=== PATIENT | male | born 1950 | race Caucasian/White ===

== ENCOUNTER → 2018-09-30 12:41 | Outpatient (CLI) | payer MEDICARE, SELFPAY ==
[2018-09-30 13:19] LABS: Absolute Lymphocyte Count 2.22 X10^3/ul (0.83-4.51); Absolute Neutrophil Count 7.1 X10^3/uL (2.0-7.7); Basophil# 0.03 X10^3/uL; Basophil% 0.3 % (0-1); Eosinophil# 0.06 X10^3/uL; Eosinophils% 0.6 % (0-5); Hematocrit 42.3 % (40-54); Hemoglobin 13.7 g/dl (13.0-16.5); Lymphocyte # 2.22 X10^3/ul (4.0); Lymphocyte % 21.3 % (19-41); Mean Corp Hgb Conc 32.4 g/gl (32-36); Mean Corpuscular Hgb 30.6 pg (27.0-32.0); Mean Corpuscular Volume 94.6 fL (80-94); Mean Platelet Vol. 9.9 fl (6.2-12.0); Monocyte# 0.78 X10^3/uL; Monocyte% 7.5 % (0-10); Neutrophil # 7.09 X10^3/uL (2.7-7.7); Neutrophil % 68.2 % (47-70); Platelet Count 288 K/mm3 (150-450); RBC Distribution Width CV 15.1 % (11.6-14.6); RBC Distribution Width SD 52.3 fl (35.1-43.9); Red Blood Count 4.47 M/mm3 (4.6-6.2); White Blood Count 10.4 K/mm3 (4.4-11.0)
[2018-09-30 13:20] LABS: Differential Indicated SCAN CRITERIA MET; POSITIVE COUNT YES; POSITIVE DIFFERENTIAL NO; POSITIVE MORPHOLOGY YES
[2018-09-30 13:35] LABS: ALB/GLOB Ratio 0.8 RATIO (0.9-2.4); AST(SGOT) 31 U/L (15-37); Alanine Aminotransfer ALT/SGPT 64 U/L (16-61); Albumin, Serum 3.3 g/dL (3.2-5.0); Alkaline Phosphatase 76 U/L (45-117); Anion Gap 8 (5-15); BUN 23 mg/dL (7-18); Calcium,Total 8.4 mg/dL (8.5-10.1); Chloride 109 mmol/L (98-107); Creatinine, Serum 1.44 mg/dL (0.70-1.30); EST Glomerular Filtration Rate 52 mL/min (>60); Est Glom Filt Rate - Afr Amer 63 mL/min (>60); Glucose 100 mg/dL (74-106); PSA,Total - Annual Screen 3.17 ng/mL (0.00-4.00); Potassium 3.8 mmol/L (3.5-5.1); Protein, Total 7.3 g/dL (6.4-8.2); Sodium Level 141 mmol/L (136-145); Thyroid Stim Hormone (TSH) 1.04 uIU/mL (0.358-3.74)
[2018-09-30 14:03] LABS: Anisocytosis 1+; Platelet Estimate ADEQUATE (ADEQ); Polychromasia 1+; Target Cells RARE
[2018-09-30 14:26] LABS: Vitamin D,25 Hydroxy 19.4 ng/mL (29.95-100.01)
[2018-10-01 09:28] LABS: Hep C Antibodies <0.1 s/co ratio (0.0-0.9)
[2018-10-03 12:01] LABS: Pathologist Review Reviewed
== END ==
PROVIDERS: Visit Provider Family Medicine Geriatric Medicine
DX: E55.9 Vitamin D deficiency, unspecified (principal); R53.83 Other fatigue; Z12.5 Encounter for screening for malignant neoplasm of prostate; Z13.89 Encounter for screening for other disorder
CPT/HCPCS: 36415; 80053; 82306; 84153; 84443; 85025; 86803; G0103

== ENCOUNTER → 2018-10-04 10:18 | Outpatient (CLI) | payer MEDICARE, OTHER, SELFPAY ==
--- NOTE | 2018-10-04 09:50 | LES_PTH ---
PATIENT: DELBERT AL LOC: CT U#:[id number] AGE/SX: 75/M ROOM: RE10/04/[address]: Dr. Samson Loco MD : 1950 BED: DIS: SPEC #: [id number] RECD: 10/04/18 13:37 STATUS: CHANTAL MARQUITA #: [id number] HODAN: 10/04/18 09:[address]: Samson Loco Chi DEPT: SURGICAL PATHOLOGY RECD BY: Corky Bosch Tissues: Cheek, NOS Procedures: Surgery Specimen Level IV HEADER OPERATION: Shave biopsy left cheek PRE-OP DIAGNOSIS: Left cheek lesion TISSUE SUBMITTED: Left cheek MICROSCOPIC DIAGNOSIS Left cheek lesion, shave biopsy: Ulcerated basal cell carcinoma, solid pattern. The neoplasm is transected by deep shave biopsy surface. CE:amada 10/05/18 MICROSCOPIC DESCRIPTION Slides are reviewed. GROSS DESCRIPTION Received in fixative is one container labeled with the patient's name and designated left cheek. The specimen consists of a shave biopsy of flores-white skin measuring 1.4 x 1 cm and up to 0.2 cm in thickness. The specimen is inked and submitted entirely in one cassette. It will be sectioned at the time of embedding. / SJ:rg 10/04/18 TC:0 CPT: 92727
--- NOTE | 2018-10-04 10:20 | CT_ITS ---
STUDY: LOW DOSE CT LUNG CANCER SCREENING REASON FOR EXAM: Male, 68 years old. 45 pack-year history of smoking. RADIATION DOSAGE (If Supplied By Facility): CTDIvol = ( 3.02 ) mGy, DLP = ( 108.35 ) mGycm TECHNIQUE: No contrast was administered. Low dose technique was utilized (average mAS-38 and kVp 120). 1.25 mm axial source images with a slice interval of 1.25-mm were reconstructed in lung windows. 2.5 mm axial source images with a slice interval of 2.5-mm were reconstructed in lung windows. 5.0 mm axial source images with a slice interval of 5.0-mm were reconstructed in soft tissue windows. Nodule measured using lung windows on PACS and/or independent workstation with automated measurement of minimum and maximum diameter. Nodule measurement reported as average diameter rounded to the nearest whole number. Growth is defined as an increase ins size of greater than 1.5 mm. COMPARISON: None. NODULES: There is a 5.3 mm noncalcified nodule in the posterior medial segment of the right lower lobe as seen on axial image #139. Emphysema: Diffuse emphysematous findings with evidence of centrilobular emphysematous changes. Increased linear markings at the lung bases suggestive of scarring. There is a small left pleural effusion with findings suggestive of a either atelectasis and/or early infiltrate at the left lung base. Aorta: Atherosclerotic calcification of the aortic arch. Coronary arteries: Coronary artery calcifications. Mediastinal nodes: Small benign-appearing mediastinal lymph nodes. Other chest and abdominal findings: CT/Low Dose CT Lung Screening IMPRESSION: Lung-RADS category 2 - Continue annual screening with LDCT in 12 months. IMPORTANT NOTES FOR USE: ACR Lung-RADS Version 1.0 Assessment Categories Release Date: December 04, 2013 Category: Coded 0-4 bases on nodule(s) with highest degree of suspicion. Negative screen is defined as categories 1 and 2; a positive screen is defined as categories 3 and 4. Category 3 and 4A nodules that are unchanged on interval CT should be coded as category 2, and individuals returned to screening in 12 months. Category 4X: Category 3 or 4 nodules with additional imaging findings that increase the suspicion of lung cancer, such as spiculation, GGN that doubles in size in 1 year, enlarged lymph notes, etc. Category Modifiers: S (significant finding unrelated to lung cancer) and C (prior history of treated lung cancer) may be added to the 0-4 Lung-RADS Electronically Signed: Urbano Walls, at 10:56 EST , Service support ,
== END ==
PROVIDERS: Family Provider Family Medicine Geriatric Medicine; PCP Family Medicine Geriatric Medicine; Referring Provider Family Medicine Geriatric Medicine; Visit Provider Family Medicine Geriatric Medicine
DX: F17.200 Nicotine dependence, unspecified, uncomplicated (principal); Z87.891 Personal history of nicotine dependence; L98.9 Disorder of the skin and subcutaneous tissue, unspecified; Z12.2 Encounter for screening for malignant neoplasm of respiratory organs
CPT/HCPCS: 88305; G0297

== ENCOUNTER → 2018-10-05 06:58 | Outpatient (CLI) | payer MEDICARE, OTHER, SELFPAY ==
--- NOTE | 2018-10-05 08:01 | US_ITS ---
PROCEDURES: ULTRASOUND AORTA REASON FOR EXAM: Male, 68 years old. Aortic aneurysm without rupture. History of smoking. TECHNIQUE: Ultrasound evaluation of the aorta was performed with real-time and static zapata-scale imaging. COMPARISON: None. FINDINGS: There is atherosclerotic plaque formation of the abdominal aorta. Aorta measures: Proximal 1.7 cm. Middle 1.9 cm. Distal 1.6 cm. Aorta measure transversely: Proximal 2.0 cm. Middle 2.2 cm. Distal 1.8 cm. There is normal color flow with normal waveform and velocity. Right iliac artery measure transversely: 1.3 cm. Left iliac artery measure transversely: 1.4 cm. There is no demonstrated aneurysm.. US/Aorta IMPRESSION: Atherosclerotic changes of the abdominal aorta without aneurysm. Electronically Signed: Arcadio Mendoza DO at 18:46 EST Tel [phone], Service support ,
--- NOTE | 2018-10-05 13:26 | PFT ---
INTRODUCTION: The patient is a 68-year-old male that presents for pulmonary function studies secondary to a diagnosis of shortness of breath. Respiratory therapy reports good patient effort. Bronchodilators were used during testing. INTERPRETATION: Forced expiration spirometry demonstrates the presence of a mild large airways obstructive ventilatory defect. There was no significant response to aerosolized bronchodilators. Spirograms are of good quality and do not plateau indicating slow emptying of the lungs. Body plethysmography was performed and reveals lung volumes to be within normal limits. Diffusing capacity by single breath CO is also within normal limits at 83% of predicted. IMPRESSION: These pulmonary function studies demonstrate the presence of an irreversible mild large airways obstructive ventilatory defect. Lung volumes and diffusing capacity are within normal limits.
== END ==
PROVIDERS: Family Provider Family Medicine Geriatric Medicine; PCP Family Medicine Geriatric Medicine; Referring Provider Family Medicine Geriatric Medicine; Visit Provider Family Medicine Geriatric Medicine
DX: I71.4 Abdominal aortic aneurysm, without rupture (principal); R06.02 Shortness of breath
CPT/HCPCS: 76775; 94060; 94726; 94729

== ENCOUNTER → 2018-10-11 14:58 | Outpatient (CLI) | payer MEDICARE, OTHER, SELFPAY ==
--- NOTE | 2018-10-11 15:06 | ECHOD_ITS ---
Reason For Study: SOB Procedure This was a 2D Doppler, Color Flow transthoracic echocardiogram. The exam was of adequate technical quality. Exam performed in department. Left Ventricle Mildly dilated left ventricle. Moderate global left ventricular systolic dysfunction. The estimated ejection fraction is 30 %. Unable to assess diastolic dysfunction. Right Ventricle Normal RV size. Normal systolic function. Atria The left atrium is moderately enlarged. Normal right atrium. No doppler evidence for ASD. Mitral Valve There is mild mitral annular calcification. Mild diffuse mitral valve thickening. Mild (1+) mitral valve insufficiency. Tricuspid Valve Normal tricuspid valve. Mild tricuspid valve insufficiency. Aortic Valve Trisinus/trileaflet aortic valve. Mild diffuse aortic valve thickening. Mild focal aortic valve calcification. Aortic sclerosis, no stenosis. Pulmonic Valve The pulmonic valve is not well visualized. Trivial pulmonic valve insufficiency. Great Vessels Normal sized aortic root. Pericardium/Pleural No pericardial effusion. MMode/2D Measurements & Calculations LVIDd: 5.7 cm IVSd: 1.2 cm Ao root diam: 3.3 cm LVIDs: 5.3 cm LVPWd: 1.1 cm RVDd: 3.4 cm FS: 8.2 % LAV(MOD-bp): 58.5 ml EDV(MOD-sp4): 134.8 ml EDV(MOD-sp2): 127.2 ml LAV(MOD-bp) Indexed: 30.5 ml/m2 ESV(MOD-sp4): 93.9 ml EF(MOD-sp2): 26.0 % LAV(MOD-sp2): 55.6 ml EF(MOD-sp4): 30.4 % LAV(MOD-sp4): 56.6 ml SV(MOD-sp4): 41.0 ml SV(MOD-sp2): 33.1 ml LA A4 area: 20.4 cm2 LA dimension(2D): 4.4 cm RA A4 area: 15.0 cm2 Time Measurements MV dec time: 0.17 sec Doppler Measurements & Calculations MV E max tracy: 110.9 cm/sec Ao V2 max: 159.5 cm/sec LV V1 max: 90.5 cm/sec Ao max P.7 mmHg LV V1 max P.8 mmHg Interpretation Summary Mildly dilated left ventricle. Moderate global left ventricular systolic dysfunction. The estimated ejection fraction is 30 %. The left atrium is moderately enlarged. There is mild mitral annular calcification. Mild diffuse mitral valve thickening. Mild (1+) mitral valve insufficiency. Mild tricuspid valve insufficiency. Aortic sclerosis, no stenosis. Trivial pulmonic valve insufficiency. Unable to assess diastolic dysfunction. Ordering Physician: Samson Loco Referring Physician: Samson Loco Chi Performed By: Isa Mejia, TRAVIS, RVT
== END ==
PROVIDERS: Family Provider Family Medicine Geriatric Medicine; PCP Family Medicine Geriatric Medicine; Referring Provider Family Medicine Geriatric Medicine; Visit Provider Family Medicine Geriatric Medicine
DX: R06.02 Shortness of breath (principal)
CPT/HCPCS: 93306

== ENCOUNTER → 2018-11-02 06:54 | Outpatient (CLI) | payer MEDICARE, OTHER, SELFPAY ==
[2018-10-19 13:13] VITALS: BMI 23.8
--- NOTE | 2018-11-02 09:36 | STRESSREP ---
Stress Test Report Pharmacologic myocardial perfusion stress test. 68-year-old man with a history of recently diagnosed atrial fibrillation and hypertension. Medications: Apixaban, metoprolol, hydrochlorothiazide, lisinopril, pravastatin. Stress protocol: Resting EKG demonstrates atrial fibrillation with a rate of 93 bpm normal intervals are noted resting blood pressure 154/80 mmHg. 0.4 mg of regadenoson was infused per usual protocol followed by rapid intravenous saline flush injection continuous EKG monitoring was performed. The patient maintained atrial fibrillation throughout the recording occasional premature ventricular complexes were noted. The resting heart rate was 99 bpm with a maximum heart rate of 136 bpm which was 88% of maximum predicted heart rate the maximum workload was [address]-T wave changes were noted the final blood pressure 128/74 mmHg. Myocardial perfusion protocol. 11.8 mCi of technetium 99m sestamibi was injected at rest. 0.4 mg of regadenoson was infused per usual protocol peak infusion 33.4 mCi of technetium 99m sestamibi was injected stress images were obtained stress and rest images were reconstructed and compared in the short axis vertical long horizontal long axis. Gated images were also obtained per Perfusion SPECT analysis: Review of the stress images demonstrate an upper normal cardiac silhouette size. There is a medium-sized defect noted involving the inferior wall and inferoseptal region. There is some GI attenuation artifact noted. The apex also appears to have moderately reduced perfusion. The resting images demonstrate improvement in the apex as well as in the inferior septal wall. The above is suggestive of ischemia in these distributions. A previous basal inferior infarct is likely. Gated SPECT analysis: The gated ejection fraction demonstrates severe cardiomyopathy with an estimated ejection fraction of 26%. Conclusion: Abnormal pharmacologic myocardial perfusion stress test with evidence of inferior, inferior septal, and apical ischemia. Previous inferior infarct noted. Ischemic cardiomyopathy present.
== END ==
PROVIDERS: Family Provider Family Medicine Geriatric Medicine; PCP Family Medicine Geriatric Medicine; Referring Provider Internal Medicine Cardiovascular Disease; Visit Provider Internal Medicine Cardiovascular Disease
DX: I25.5 Ischemic cardiomyopathy (principal); I48.1 Persistent atrial fibrillation
CPT/HCPCS: 78452; 93017; A9500; A4216; J2785

== ENCOUNTER 2018-11-11 09:57 | Day surgery (SDC) | payer MEDICARE, OTHER, SELFPAY ==
[2018-10-19 13:13] VITALS: BMI 23.8
--- NOTE | 2018-11-04 12:34 | RAD_ITS ---
STUDY: X-RAY CHEST REASON FOR EXAM: Male, 68 years old. Chest pain. TECHNIQUE: PA and lateral views of the chest. COMPARISON: Prior comparison studies are not available for review at this time. FINDINGS: The lungs are clear and expanded. There is no demonstrated pleural abnormality. Normal size heart. Normal mediastinum and emmett. Normal visualized pulmonary arteries. Normal visualized aortic arch and descending thoracic aorta. There is mild levoscoliosis of the lower thoracic spine and mild degenerative changes. Normal visualized ribs, clavicles, and shoulders. There is no demonstrated abnormality of the visualized soft tissue structures of the upper abdomen. RAD/Chest PA and Lateral IMPRESSION: No active pulmonary disease. Electronically Signed: Reyes Hall MD at 13:16 EDT Tel , Service support ,
[2018-11-04 12:58] LABS: Absolute Neutrophil Count 5.5 X10^3/uL (2.0-7.7); Basophil# 0.03 X10^3/uL; Basophil% 0.4 % (0-1); Eosinophil# 0.12 X10^3/uL; Eosinophils% 1.5 % (0-5); Hematocrit 46.7 % (40-54); Hemoglobin 15.3 g/dl (13.0-16.5); Lymphocyte % 24.4 % (19-41); Mean Corp Hgb Conc 32.8 g/gl (32-36); Mean Corpuscular Hgb 30.5 pg (27.0-32.0); Mean Platelet Vol. 10.3 fl (6.2-12.0); Monocyte# 0.52 X10^3/uL; Monocyte% 6.3 % (0-10); Platelet Count 210 K/mm3 (150-450); RBC Distribution Width CV 14.9 % (11.6-14.6); RBC Distribution Width SD 50.1 fl (35.1-43.9); Red Blood Count 5.02 M/mm3 (4.6-6.2); White Blood Count 8.2 K/mm3 (4.4-11.0)
[2018-11-04 13:08] LABS: POSITIVE COUNT NO; POSITIVE DIFFERENTIAL NO; POSITIVE MORPHOLOGY NO
[2018-11-04 13:13] LABS: International Normalized Ratio 1.1; Partial Thromboplast Time 31.5 Seconds (24.1-36.2); Prothrombin Time (Protime)PT. 13.7 SECONDS (11.7-14.9)
[2018-11-04 13:23] LABS: BUN 20 mg/dL (7-18); BUN/Creat Ratio 13.5 RATIO (10-20); Calcium,Total 8.7 mg/dL (8.5-10.1); Chloride 106 mmol/L (98-107); Creatinine, Serum 1.48 mg/dL (0.70-1.30); EST Glomerular Filtration Rate 50 mL/min (>60); Est Glom Filt Rate - Afr Amer 61 mL/min (>60); Glucose 109 mg/dL (74-106); Potassium 3.8 mmol/L (3.5-5.1); Sodium Level 138 mmol/L (136-145)
[2018-11-04 13:24] LABS: Anion Gap 5 (5-15)
[2018-11-10 07:29] VITALS: BMI 23.8
[2018-11-11] VITALS (24 sets, daily range): BP systolic 107–169; BP diastolic 57–119; PULSE 56–121; RESP 16–25; TEMP 36.5–37.2; O2SAT 92–100; BMI 23.4; BMI 22.2
--- NOTE | 2018-11-11 13:35 | EKG12_ITS ---
Test Reason : AM EKG Blood Pressure : / mmHG Vent. Rate : 088 BPM Atrial Rate : 250 BPM P-R Int : 000 ms QRS Dur : 104 ms QT Int : 400 ms P-R-T Axes : 000 -02 113 degrees QTc Int : 484 ms Atrial fibrillation Abnormal ECG No previous ECGs available Confirmed by CLAIR EWING, JOSE L ([id number]), development editor KAYLI JONES ([id number]) on 11/15/2018 8:24:04 AM Referred By: Jose L Viera Confirmed By:JOSE L VIERA MD
--- NOTE | 2018-11-11 13:39 | CL.I_ITS ---
Patient Name: DELBERT AL Study Date: 11/11/2018 Performing: Kervin Leigh MD Ht: 70.07 inches 178 cm : 1950 Wt: 165.35 lbs 75 kg Age: 68 Gender: male BSA: 1.93 PROCEDURE(S) PERFORMED [id number] W OR WO PTCA, SINGLE CORONARY ARTERY CLINICAL PROFILE AND CO-MORBIDITIES Heart Failure: None Stress/Imaging Stress Test w/SPECT MPI: Yes Result: Positive Intermediate Risk Stress Test with S PECT MPI: Positive Intermediate Risk CONCLUSIONS Successful JASPREET distal RCA using Resolute Integrity 3.0x15 mm RECOMMENDATIONS ASA Indefinitley Plavix for at least 12 months Follow up with Dr. Viera INTERVENTION INFORMATION LESION SITE: RCA (Distal) Lesion Complexity: Non-High/Non-C Pre Stenosis: 80 % Pre intervention ALEX flow: 3 PROCEDURE: Drug Eluting Stent with post dilatation Post Stenosis: 0 % Post intervention ALEX flow: 3 Lesion Devices: Medtronic Resolute RX JASPREET 3.0x15 [place] [employer] NC EMERGE MR 3.00x15 BALLOON COMPLICATIONS No Complications PROCEDURE MEDICATIONS Fentanyl 50 mcg IV Versed 1 mg IV Fentanyl 25 mcg IV Versed 1 mg IV Oxygen: 2 L/min via nasal cannula Heparin diluted in 23cc Heparinized saline. Patient given 10cc IA of this solution. 11/11/2018 12:48:1 0 Heparin 6000 unit(s) IV 11/11/2018 13:07:25 Heparin 3000 unit(s) IV 11/11/2018 13:15:53 Heparin 2000 unit(s) IV 11/11/2018 13:32:58 Nitro 200 mcg IC 11/11/2018 13:09:09 Nitro 200 mcg IC 11/11/2018 13:09:09 Plavix 300 mg PO 11/11/2018 13:35:32 Verapamil 2.5mg, Ntg 100mcgs, 2000 units of Heparin diluted in 23cc Heparinized saline. Patient give n 10cc IA of this solution. 11/11/2018 12:48:10 SUMMARY OF HEMODYNAMIC DATA Time AIR REST ECG 12:34:53 AO 129/68 (91) SA 12:50:27 LV 129/4, 9 12:57:06 LV 134/3, 6 12:57:12 LV 146/4, 10 12:58:36 LV 161/3, 9 12:58:42 LVp 167/4, 10 12:58:48 AO 158/92 (113) 12:58:53 Signed By Kervin Leigh MD On 11/11/2018 13:38:41 Kervin Leigh MD
--- NOTE | 2018-11-11 13:45 | EKG12_ITS ---
Test Reason : PCI Blood Pressure : / mmHG Vent. Rate : 104 BPM Atrial Rate : 107 BPM P-R Int : 000 ms QRS Dur : 112 ms QT Int : 318 ms P-R-T Axes : 000 -52 080 degrees QTc Int : 418 ms Atrial fibrillation Left anterior fascicular block Abnormal ECG No previous ECGs available Confirmed by CLAIR EWING, JOSE L ([id number]), design editor KAYLI JONES ([id number]) on 11/15/2018 8:25:37 AM Referred By: Jose L Viera Confirmed By:JOSE L VIERA MD
[2018-11-11 13:46] LABS: ACT Activated Clotting Time 142 sec (74-137)
[2018-11-11 13:46] LABS: ACT Activated Clotting Time 224 sec (74-137)
[2018-11-11 13:46] LABS: ACT Activated Clotting Time 219 sec (74-137)
[2018-11-11] MEDS: 0.9% Normal Saline 1,000 ML 75 ML IV (14:00)
--- NOTE | 2018-11-11 14:52 | CRPHASE1 ---
Patient Communication PHII Cardiac Rehab Discussed with Patient:: Yes Guide to Cardiac Rehab Given to Patient:: Yes Cardiac Rehab Facility Choice List Given to Patient:: Yes Choice Program [facility] PHII:: Communication Given to CR Civil Cadd Technician:: Kervin Leigh Phase II Cardiac Rehab:: No - pending Risk Factors/Lifestyle Smoking Status: Current every day smoker Hx Hypertension: Yes Hx Dyslipidemia: Yes Height: 1.78 m Weight:: 70.307 kg BMI: 22.2 Family History: Family History (Last Reviewed 10/19/18 @ 13:41 by Jose L Viera MD) Mother Asthma Diabetes Kidney disease Father Cancer Sister CHF (congestive heart failure) Sister Colon cancer Phase I Education Given On:: [place], Nutrition, Antiplatelet medication, CHF, Smoking cessation, Diabetes - Type I, Diabetes - Type II Hospital Course Cardiac Cath Date:: 11/11/18 Medical/Surgical History Hypertension:: Yes Dyslipidemia:: Yes Arrhythmias:: Yes PTCA:: Yes Cardiac Rehabilitation Info Cardiac Rehabilitation Program Information: Cardiac Rehabilitation is important for patients like you who are recovering from a heart problem. Cardiac rehabilitation programs are recognized as integral to the continued care of the patient with coronary heart disease. The cardiac rehabilitation program is designed to optimize a patient's physical, psychological, and social functioning. Health career resource technician work in cardiac rehabilitation programs and assist you with getting the treatments you need to get stronger and healthier - like exercise, healthy eating habits, and medications. Cardiac rehabilitation has been show to help people with heart problems live longer and have better life enjoyment than people who do not go to cardiac rehabilitation. Please contact the Cardiac Rehabilitation Program at [facility] at in two weeks if you have not heard from them.
--- NOTE | 2018-11-11 14:54 | CL.D_ITS ---
Patient Name: DELBERT AL Study Date: 11/11/2018 Performing: Jose L Viera MD Ht: 70 inches 178 cm : 1950 Wt: 165.6 lbs 75 kg Age: 68 Gender: male BSA: 1.93 PROCEDURE(S) PERFORMED SW80-CQW/COR/LV [id number] W OR WO PTCA, SINGLE CORONARY ARTERY CLINICAL PROFILE AND INDICATIONS Indications: Suspected CAD Heart Failure: None Stress/Imaging Stress Test w/SPECT MPI: Yes Result: Positive Intermediate RiskStress Test with SP ECT MPI: Positive Intermediate Risk CAD Presentations: Unstable angina. CONCLUSIONS Mild left anterior descending artery stenosis and moderately severe distal right coronary artery sten osis with 75% smooth stenosis RECOMMENDATIONS Referred for immediate PCI DESCRIPTION OF PROCEDURE The patient arrived to the procedure lab. The risks and benefits of the procedure as well as a full d escription of our services here and current unavailability of surgical backup were fully explained to the patient and/or their significant other prior to the catheterization. The Timeout was completed, verifying the correct patient and procedure. The patient's procedural site was prepped and draped in the usual fashion. Local anesthetic was given subcutaneously to right radial region with Lidocaine 2% . Using a modified Seldinger technique, arterial access was obtained via the right radial artery, a 6 Fr sheath was inserted. Left Coronary Artery selective angiography was performed in multiple views u sing a 5 Fr. 4.0 [place] catheter. Right Coronary Artery selective angiography was then performed in mu ltiple views using a 5 Fr. 4.0 [place] catheter. Left Ventriculography was performed in JOHNSON projection using a 5 Fr. Pigtail catheter. LV to AO pullback pressures were then recorded.The arterial sheath was pulled and a TR Band was applied for hemostasis CORONARY ANGIOGRAPHY DOMINANCE: Right Dominant LEFT HEART ASSESSMENT Left Ventricular Ejection Fraction: by LV Gram 45 % Inferior Mid Hypokinesis - Moderate Depressed Left Ventricular systolic function LEFT MAIN: Non-obstructive LEFT ANTERIOR DECENDING ARTERY: PROX LAD: Mild luminal irregularities less than 30% CIRCUMFLEX ARTERY: Mild luminal irregularities RIGHT CORONARY ARTERY: DISTAL RCA: 75 % Stenosis COMPLICATIONS No Complications PROCEDURE MEDICATIONS Fentanyl 50 mcg IV Versed 1 mg IV Fentanyl 25 mcg IV Versed 1 mg IV Oxygen: 2 L/min via nasal cannula Heparin diluted in 23cc Heparinized saline. Patient given 10cc IA of this solution. 11/11/2018 12:48:1 0 Heparin 6000 unit(s) IV 11/11/2018 13:07:25 Heparin 3000 unit(s) IV 11/11/2018 13:15:53 Heparin 2000 unit(s) IV 11/11/2018 13:32:58 Nitro 200 mcg IC 11/11/2018 13:09:09 Nitro 200 mcg IC 11/11/2018 13:09:09 Plavix 300 mg PO 11/11/2018 13:35:32 Verapamil 2.5mg, Ntg 100mcgs, 2000 units of Heparin diluted in 23cc Heparinized saline. Patient give n 10cc IA of this solution. 11/11/2018 12:48:10 SUMMARY OF HEMODYNAMIC DATA Time AIR REST ECG 12:34:53 AO 129/68 (91) SA 12:50:27 LV 129/4, 9 12:57:06 LV 134/3, 6 12:57:12 LV 146/4, 10 12:58:36 LV 161/3, 9 12:58:42 LVp 167/4, 10 12:58:48 AOp 158/92 (113) 12:58:53 Signed By Jose L Viera MD On 11/11/2018 14:53:44 Jose L Viera MD
--- NOTE | 2018-11-11 14:55 | CRPHASE1_ITS ---
Addendum entered and electronically signed by Aguila Gonzalez CRT, SWITCH BOX INSTALLER, BS 11/15/18 14:53: Please note this patient was referred to CR Phase II here at [facility] prior to his discharge per Dr. Jose L Viera on 11/11/2018. Please refer to [facility] for discharge summary. Original Note: Patient Communication PHII Cardiac Rehab Discussed with Patient:: Yes Guide to Cardiac Rehab Given to Patient:: Yes Cardiac Rehab Facility Choice List Given to Patient:: Yes Choice Program [facility] CR PHII:: Communication Given to CR Refuge Manager:: Kervin Leigh Refer Phase II Cardiac Rehab:: No - pending Risk Factors/Lifestyle Smoking Status: Current every day smoker Hx Hypertension: Yes Hx Dyslipidemia: Yes Height: 1.78 m Weight:: 70.307 kg BMI: 22.2 Family History: Family History (Last Reviewed 10/19/18 @ 13:41 by Jose L Viera MD) Mother Asthma Diabetes Kidney disease Father Cancer Sister CHF (congestive heart failure) Sister Colon cancer Phase I Education Given On:: [place], Nutrition, Antiplatelet medication, CHF, Smoking cessation, Diabetes - Type I, Diabetes - Type II Hospital Course Cardiac Cath Date:: 11/11/18 Medical/Surgical History Hypertension:: Yes Dyslipidemia:: Yes Arrhythmias:: Yes PTCA:: Yes Cardiac Rehabilitation Info Cardiac Rehabilitation Program Information: Cardiac Rehabilitation is important for patients like you who are recovering from a heart problem. Cardiac rehabilitation programs are recognized as integral to the continued care of the patient with coronary heart disease. The cardiac rehabilitation program is designed to optimize a patient's physical, psychological, and social functioning. Health c are professionals work in cardiac rehabilitation programs and assist you with getting the treatments you need to get stronger and healthier - like exercise, healthy eating habits, and medications. Cardiac rehabilitation has been show to help people with heart problems live longer and have better life enjoyment than people who do not go to cardiac rehabilitation. Please contact the Cardiac Rehabilitation Program at [facility] at in two weeks if you have not heard from them.
--- NOTE | 2018-11-11 14:55 | CRPH1.INSTRU ---
General Education CAD and cardiac anatomy and function:: Patient communicates acknowledgment Explanation of diagnoses and procedures:: Patient communicates acknowledgment Sign/Symptoms of AR:: Patient communicates acknowledgment Antiplatelet therapy: Patient communicates acknowledgment Proper use of NTG-SL: Not instructed Emergency procedures and activation of EMS: Patient communicates acknowledgment Compliance of all prescribed medications: Patient communicates acknowledgment Smoking Patient Nicotine/Smoking Risk Factors Are:: Cigarettes Nicotine/Smoking Response Code:: Patient communicates acknowledgment Dyslipidemia Dyslipidemia Response Code:: Patient communicates acknowledgment Overweight/Obesity Patient Overweight/Obesity Risk Factors Are:: BMI Normal [18-25 & < 65 years old] Overweight/Obesity:: Not instructed Hypertension Hypertension:: Patient communicates acknowledgment Heart Disease Heart Disease Response Code:: Patient communicates acknowledgment Diabetes Diabetes:: Patient communicates acknowledgment Metabolic Syndrome Metabolic Syndrome Response Code:: Patient communicates acknowledgment Sedentary Sedentary Response Code:: Patient communicates acknowledgment Stress Stress Response Code:: Patient communicates acknowledgment
[2018-11-11] MEDS: Lisinopril 20 MG Tablet PO (16:07)
[2018-11-11] MEDS: hydroCHLOROthiazide 12.5mg 12.5 MG PO (16:08)
--- NOTE | 2018-11-11 16:25 | CHAPLAIN ---
Type of Pastoral Visit ___ Initial Visit _x__ Follow-up Visit ___ On-call Visit ___ General Patient Visit ___ Spiritual Assessment ___ Family Conference ___ Bereavement ___ Rapid Response ___ Code Blue ___ Other (describe below) Pastoral Care Referral From _x__ Patient _x__ Family ___ Nurse ___ Physician ___ Cna Caregiver ___ Acetylene Torch Solderer ___ Other (describe below) Sacrament/Intervention _x__ Active listening ___ Anointing ___ Buddhism ___ Bereavement ___ Communion ___ Maya exploration ___ _x__ Life review ___ Prayer ___ Reconciliation ___ Sacrament of Sick _x__ Supportive presence ___ Wedding ___ Other (describe below) Pastoral Comments
[2018-11-11] MEDS: Metoprolol Tartrate 25 MG Tablet PO (21:30)
[2018-11-11] MEDS: Pravastatin 40 MG Tablet PO (21:32)
[2018-11-12] VITALS (13 sets, daily range): BP systolic 101–165; BP diastolic 49–104; PULSE 74–110; RESP 18–26; TEMP 36.6–36.7; O2SAT 91–99
[2018-11-12 05:13] LABS: Hematocrit 42.9 % (40-54); Hemoglobin 14.3 g/dl (13.0-16.5); Mean Corp Hgb Conc 33.3 g/gl (32-36); Mean Corpuscular Hgb 29.7 pg (27.0-32.0); Mean Platelet Vol. 9.7 fl (6.2-12.0); Platelet Count 170 K/mm3 (150-450); RBC Distribution Width CV 14.9 % (11.6-14.6); RBC Distribution Width SD 48.8 fl (35.1-43.9); Red Blood Count 4.82 M/mm3 (4.6-6.2); White Blood Count 8.2 K/mm3 (4.4-11.0)
[2018-11-12 05:21] LABS: Scan Indicated on CBC? Y/N NO
[2018-11-12 05:27] LABS: Anion Gap 7 (5-15); BUN 18 mg/dL (7-18); BUN/Creat Ratio 13.8 RATIO (10-20); Calcium,Total 8.2 mg/dL (8.5-10.1); Chloride 108 mmol/L (98-107); EST Glomerular Filtration Rate 59 mL/min (>60); Est Glom Filt Rate - Afr Amer 71 mL/min (>60); Glucose 106 mg/dL (74-106); Potassium 3.9 mmol/L (3.5-5.1); Sodium Level 141 mmol/L (136-145)
[2018-11-12] MEDS: Aspirin E.C. 81 MG Tablet PO (07:44)
[2018-11-12] MEDS: Metoprolol Tartrate 25 MG Tablet PO ×2 (07:44→10:30)
[2018-11-12] MEDS: hydroCHLOROthiazide 12.5mg 12.5 MG PO (07:45)
[2018-11-12] MEDS: Clopidogrel Bisulfate 75 MG Tablet PO (07:47)
[2018-11-12] MEDS: Lisinopril 20 MG Tablet PO (07:47)
--- NOTE | 2018-11-12 09:24 | PN.CARD_ITS ---
Subjectve: Patient seen and evaluated. Appears to be doing well. No issues overnight. Objective: Vital Signs Temp Pulse Resp BP Pulse Ox 97.8 F 86 18 154/72 H 96 11/12/18 04:00 11/12/18 07:44 11/12/18 06:00 11/12/18 07:44 11/12/18 06:00 Oxygen Delivery Method Room Air Weight: 160 lb 0.889 oz Body Mass Index (BMI) 23.4 Intake and Output for Last 24 Hours 11/10/18 11/11/18 11/12/18 23:59 23:59 23:59 Intake Total 600 / 600 120 / 120 Output Total 300 / 300 200 / 200 Balance 300 / 300 -80 / -80 General: Awake, Alert, Oriented x 3 HEENT: PERRL, EOMI, Sclera Non Icteric Neck: Supple, Good ROM, No Lymph Node Enlargement Lungs: Clear to auscultation Cardiovascular: Regular Rhythm, Normal S1, Normal S2, No Murmurs, No Rubs, No Gallops Vascular: No Carotid Bruits, Normal Femoral Pulses, Normal Radial Pulses, Normal Dorsalis Pedal Pulse, Normal Posterior Tibial Pulses Abdomen: Bowel Sounds Present, Soft, Non Tender, No HSM, No Organomegaly Extremities: No Cyanosis, No Clubbing, No edema Skin: No Rashes Lymphatic: No Lymph Node Enlargement Neurological: No Focal Motor or Sensory Deficit Psych/Mental Status: Appropriate Rhythm: EKG: ECHO: Stress Test: Cardiac Cath: PCI: CT Surgery: Holter monitor: EPS: PPM: CXR: Chest CT Scan: Medical Necessity - Tobacco Use Smoking Status: Current every day smoker Assessment/Plan 1. Status post cardiac catheterization demonstrating high-grade stenosis noted of the distal right coronary artery. * The patient underwent angioplasty and stenting of the above with a 3.0 x 18 mm stent. The above was uncomplicated. The plan will be for patient to be discharged for outpatient follow-up. * 2. Hypertension * Will resume current blood pressure medications. * 3. Atrial fibrillation * Patient would continue with rate control and restart Eliquis tomorrow. Patient would need to be on triple therapy for at least 3 months. After that the Plavix can probably be discontinued. * * Thank you for allowing me to participate in the care of your patient. Please don't hesitate to call if any issues arise
--- NOTE | 2018-11-12 09:28 | PCM.DC.CCA ---
Discharge Diet: Low fat/ Low Cholesterol Discharge Activity: Return to Normal Activity May resume sexual activity in: 1 week Call your doctor if your incision/area has: Increased Pain/ Swelling, Increased Redness, Foul Smelling Discharge, Swelling at the incision site Call your doctor if you observe: Fever of 101 or Higher Additional Dressing/Incision Instructions:: Keep the dressing (bandage) on until the next morning. You may then shower, but do not take a tub bath for 5 days after your test. It is normal to have some tenderness and discomfort at the puncture site. Sometimes bruising also occurs. However, if pain, numbness, or coldness occurs below the puncture site (in your leg, toes, arms or fingers) call your doctor at once. You may have a small, marble sized knot at the puncture site. This is normal. Do not rub it. It will go away in 4-6 weeks. Bleeding can occur from the area where the puncture was done. Blood may spurt or drip from the site. If blood spurts, apply pressure right away to stop bleeding and call 911. Although rare, bleeding into the tissue (hematoma) can also occur. If this happens, a large, firm area goose egg under the skin will appear. If any of these occur, lie down as flat as you can and have someone apply firm pressure to the cath site with a gauze pad or a clean washcloth for 10-15 minutes. Call 911 or go to the Emergency Department. Allergies/Adverse Reactions: Allergies No Known Allergies Allergy (Verified 11/10/18 07:32) Medications to take at Discharge albuterol sulfate HFA 90 mcg/actuation aerosol inhaler 1 puff INHALATION Q6H PRN 10/18/18 glycopyrrolate 9 mcg-formoterol 4.8 mcg HFA aerosol inhaler 2 puff INHALATION BID 10/18/18 lisinopril 20 mg-hydrochlorothiazide 12.5 mg tablet 1 tab PO DAILY 10/18/18 pravastatin 40 mg tablet 40 mg PO QHS tab 10/18/18 varenicline 0.5 mg (11)-1 mg (42) tablets in a dose pack 1 tab PO BID tab 10/18/18 varenicline 1 mg tablet 1 mg PO BID 10/18/18 apixaban 2.5 mg tablet 2.5 mg PO BID #90 tab 10/19/18 clopidogrel 75 mg tablet 75 mg PO QDAY #90 tab 11/03/18 Aspirin [Aspirin EC] 81 mg PO DAILY 11/11/18 Metoprolol Tartrate [Lopressor (beta estephanie)] 50 mg PO BID #60 tablet 11/12/18 The following prescriptions were given: Metoprolol Tartrate [Lopressor (beta estephanie)] 50 mg PO BID #60 tablet Orders to be completed after discharge: Phase II, Outpatient Cardiac Rehab Location: None Selected Primary Care Physician: Samson Loco Chi, MD [Primary Care Provider] - Test Results: Test results from this visit will be discussed in further detail at your follow-up appointment, if applicable. When: my office will call for follow up Cardiac Rehabilitation Info Cardiac Rehabilitation Program Information: Cardiac Rehabilitation is important for patients like you who are recovering from a heart problem. Cardiac rehabilitation programs are recognized as integral to the continued care of the patient with coronary heart disease. The cardiac rehabilitation program is designed to optimize a patient's physical, psychological, and social functioning. Health wound care specialist work in cardiac rehabilitation programs and assist you with getting the treatments you need to get stronger and healthier - like exercise, healthy eating habits, and medications. Cardiac rehabilitation has been show to help people with heart problems live longer and have better life enjoyment than people who do not go to cardiac rehabilitation. Please contact the Cardiac Rehabilitation Program at [facility] at in two weeks if you have not heard from them.
--- NOTE | 2018-11-12 09:32 | DCINST_ITS ---
Discharge Diet: Low fat/ Low Cholesterol Discharge Activity: Return to Normal Activity May resume sexual activity in: 1 week Call your doctor if your incision/area has: Increased Pain/ Swelling, Increased Redness, Foul Smelling Discharge, Swelling at the incision site Call your doctor if you observe: Fever of 101 or Higher Additional Dressing/Incision Instructions:: Keep the dressing (bandage) on until the next morning. You may then shower, but do not take a tub bath for 5 days after your test. It is normal to have some tenderness and discomfort at the puncture site. Sometimes bruising also occurs. However, if pain, numbness, or coldness occurs below the puncture site (in your leg, toes, arms or fingers) call your doctor at once. You may have a small, marble sized knot at the puncture site. This is normal. Do not rub it. It will go away in 4-6 weeks. Bleeding can occur from the area where the puncture was done. Blood may spurt or drip from the site. If blood spurts, apply pressure right away to stop bleeding and call 911. Although rare, bleeding into the tissue (hematoma) can also occur. If this happens, a large, firm area goose egg under the skin will appear. If any of these occur, lie down as flat as you can and have someone apply firm pressure to the cath site with a gauze pad or a clean washcloth for 10-15 minutes. Call 911 or go to the Emergency Department. Allergies/Adverse Reactions: Allergies No Known Allergies Allergy (Verified 11/10/18 07:32) Medications to take at Discharge albuterol sulfate HFA 90 mcg/actuation aerosol inhaler 1 puff INHALATION Q6H PRN 10/18/18 glycopyrrolate 9 mcg-formoterol 4.8 mcg HFA aerosol inhaler 2 puff INHALATION BID 10/18/18 lisinopril 20 mg-hydrochlorothiazide 12.5 mg tablet 1 tab PO DAILY 10/18/18 pravastatin 40 mg tablet 40 mg PO QHS tab 10/18/18 varenicline 0.5 mg (11)-1 mg (42) tablets in a dose pack 1 tab PO BID tab 10/18/18 varenicline 1 mg tablet 1 mg PO BID 10/18/18 apixaban 2.5 mg tablet 2.5 mg PO BID #90 tab 10/19/18 clopidogrel 75 mg tablet 75 mg PO QDAY #90 tab 11/03/18 Aspirin [Aspirin EC] 81 mg PO DAILY 11/11/18 Metoprolol Tartrate [Lopressor (beta estephanie)] 50 mg PO BID #60 tablet 11/12/18 The following prescriptions were given: Metoprolol Tartrate [Lopressor (beta estephanie)] 50 mg PO BID #60 tablet Orders to be completed after discharge: Phase II, Outpatient Cardiac Rehab Location: None Selected Primary Care Physician: Samson Loco Chi, MD [Primary Care Provider] - Test Results: Test results from this visit will be discussed in further detail at your follow- up appointment, if applicable. When: my office will call for follow up Cardiac Rehabilitation Info Cardiac Rehabilitation Program Information: Cardiac Rehabilitation is important for patients like you who are recovering from a heart problem. Cardiac rehabilitation programs are recognized as integral to the continued care of the patient with coronary heart disease. The cardiac rehabilitation program is designed to optimize a patient's physical, psychological, and social functioning. Health home health care physician work in cardiac rehabilitation programs and assist you with getting the treatments you need to get stronger and healthier - like exercise, healthy eating habits, and medications. Cardiac rehabilitation has been show to help people with heart problems live longer and have better life enjoyment than people who do not go to cardiac rehabilitation. Please contact the Cardiac Rehabilitation Program at [facility] at in two weeks if you have not heard from them.
== END 2018-11-12 10:57 | disposition home or self-care (01) ==
LOC: CLSP 09:57 → ICU 13:41
PROVIDERS: Internal Medicine Cardiovascular Disease; Family Provider Family Medicine Geriatric Medicine; PCP Family Medicine Geriatric Medicine; Referring Provider Internal Medicine Cardiovascular Disease; Visit Provider Internal Medicine Cardiovascular Disease
DX: I25.110 Atherosclerotic heart disease of native coronary artery with unstable angina pectoris (principal); I48.1 Persistent atrial fibrillation; I10 Essential (primary) hypertension; I43 Cardiomyopathy in diseases classified elsewhere; E78.5 Hyperlipidemia, unspecified; J44.9 Chronic obstructive pulmonary disease, unspecified; R91.1 Solitary pulmonary nodule; Z85.828 Personal history of other malignant neoplasm of skin; Z79.51 Long term (current) use of inhaled steroids; Z79.899 Other long term (current) drug therapy; F17.200 Nicotine dependence, unspecified, uncomplicated
CPT/HCPCS: 36415; 71046; 80048; 85025; 85027; 85347; 85610; 85730; 92928; 93005; 93458; 99152; 99153; J7030; J7040; Q9967; C1725; C1769; C1874; C1887; C1894; C9600

== ENCOUNTER → 2018-11-21 | Outpatient (CLI) | payer MEDICARE, OTHER, SELFPAY ==
[2018-11-11 14:18] VITALS: BMI 23.4
[2018-11-11 14:55] VITALS: BMI 22.2
--- NOTE | 2018-11-21 13:01 | PCM.CR.ITP ---
General Information - General Information Admitting Diagnosis: Z95.5 PTCA - Education/Goals Barriers to Learning: None Cardiac Rehabilitation Goals: 1. Maintain the individual as the primary focus of care. 2. To improve the patient's quality of life. 3. Identification of cardiac risk factors and provide cardiac risk factor management. 4. Enhance the psychosocial status of the patient. 5. Reconditioning enough to allow the patient to resume customary activities. 6. Control symptoms of cardiac disease Scale for measuring improvement of personal goals: Enter appropriate number in Comments. 2 = Unchanged. 3 = Slightly Better. 4 = Moderate Improvement. 5 = Met my Goal Personal Goals: Initial Assessment: Improve energy level, Participate in home exercise program, Get back to work, or to resume activities faster, Improve knowledge of cardiac disease, Improve muscle strength and endurance, Improve diet and eating habits (eat healthier), Control risk factors (learn risk factor modification) Exercise - Initial Assessment - Visit Date of Eval: 11/21/18 - initial eval - Stages of Change Stages of Change:: Contemplate - Physician Prescribed Exercise Modalities: Treadmill, Biodyne, Rower, Airdyne, NuStep, SciFit Frequency (days/week): 3x/week for 12 weeks [36 sessions] Duration (Minutes):: 30-45 Intensity: 60-80% age predicted maximum heart rate reserve METs - Progression: 0.5-1.0 MET, RPE 11-14 WEEK: 2.5 Target Heart Rate:: 92-108 - Hypertension Do any of the following apply?: Yes Resting Blood Pressure:: 130/64 - Intervention Home Exercise/Activity Goal:: Moderate Exercise 30 min/day x 5 days/wk - Education Goals:: Warm-up, RPE MELISA Scale, S/S, Safe Exercise, Self-Monitoring - Exercise Program Goals Exercise Program Goals: Aerobic Activity >30 min, B/P <130/80 Nutrition - Initial Assessment - Program Goals Nutrition Program Goals: LDL <70. Total Cholesterol <200. HDL >45. Triglycerides <150. HgbA1C <7%. BMI <25 - Visit Date of Assessment:: 11/21/18 - Stages of Change Stages of Change:: Contemplate - Diabetes Diabetes:: No - Weight Management Height: 1.78 m Weight:: 75.296 kg Total Score:: 4 - Intervention Referral to dietitian:: No Referral to Diabetic Clinic:: No Will attend diet classes:: Yes - Education Gave educational materials for:: Signs & symptoms of hypoglycemia, Signs & symptoms of hyperglycemia, Relate diabetes to coronary artery disease, Healthy eating Tobacco - Initial Assessment - Program Goals Tobacco Program Goals: Complete smoking cessation. Attend education classes. Improve Knowledge Test score - Stage of Change Stages of Change:: Contemplate - Learning Barriers Total Score:: 16 - Family Support Do you have family support?: Yes - Tobacco Use Tobacco Use: Cigarettes Do you use smokeless tobacco?: No - Intervention Smoking Cessation Referral:: No Individual Education/Counseling:: No Education Schedule Given:: Yes - Education Gave educational material for:: Tobacco triggers, Coronary artery disease, Risk factors, Sexuality, Medical compliance, Cardiac A&P, Angina signs & symptoms Psychosocial - Initial Assess - Target Goals Target Goals: Assess presence or absence of depression. Using a valid screening tool, maximizes coping skills. Positive support system - Stages of Change Stages of Change:: Contemplate - Psychosocial Test Tool Used:: HANDS Depression Questionnaire Total Mood Screening Score:: 2 Self-Efficacy Score:: 7 - Intervention PS - Interventions: Yes Attend Stress Management Classes, Yes Uses Stress Management Skills, No Referral to Mental Health, No Referral to [facility] Case Management, No Referral to Physician - Education Gave educational materials for:: Coping techniques, Signs & symptoms of depression, Stress management, Relaxation techniques - Assistive Devices Assistive Devices:: None Fall Risk Assessed:: Yes Patient Health Questionnaire Initial Assessment 1. Little interest or pleasure in doing things: Not at all 2. Feeling down, depressed, or hopeless: Not at all 3. Trouble falling or staying asleep, or sleeping too much: Not at all 4. Feeling tired or having little energy: Several days 5. Poor appetite or overeating: Several days 6. Feeling bad about yourself -- or that you are a failure or have let yourself or your family down: Not at all 7. Trouble concentrating on things, such as reading the newspaper or watching television: Not at all 8. Moving or speaking so slowly that other people could have noticed. Or the opposite - being so fidgety or restless that you have been moving around a lot more than usual: Not at all 9. Thoughts that you would be better off , or of hurting yourself in some way: Not at all How difficult have these problems made it for you to do your work, take care of things at home, or get along with other people?: Not difficult at all Total Score: 2 LISA-Q SV Test - Statements CAD is a disease of the arteries in the heart: False Examples of risk factors for heart disease: True Angina is chest pain or discomfort: True The benefits of resistance training include: I Don't Know Eating more meat and dairy products: False Anti-platelet medications such as aspirin are important: False The only effective way to manage stress: False An exercise warm-up slowly increases heart rate: True Prepared, processed foods usually have high sodium: True Depression is common after a heart attack: True The statin medications lower cholesterol: I Don't Know To control blood pressure, lower the amount of sodium: True If someone gets chest discomfort during walking: False Transfats are partially hydrogenated vegetable oils: True Sleep apnea that is not treated increases the risk: False To control cholesterol, one should become a vegetarian: False Someone knows if he/she is exercising at the right level: False Diabetes cannot be prevented with exercise & health eating: False Stress is a large risk for heart attack: True A diet that can help lower blood pressure is rich in: True - Total Score Total Correct Responses: 16 Self-Efficacy Initial Assessment We would like to know how confident you are in doing certain activities. Please select your confidence level for:: Select your confidence level for the following using the scale 1-10 where 1 is not at all confident and 10 is totally confident. Your score is the average of all 6 responses. Fatigue: How confident are you that you can keep the fatigue caused by your disease from interfering with the things you want to do? Select Number: 8 Physical Discomfort or Pain: How confident are you that you can keep the physical discomfort or pain of your disease from interfering with the things you want to do? Select Number: 7 Emotional Distress: How confident are you that you can keep the emotional distress caused by your disease from interfering with the things you want to do? Select Number: 8 Other Symptoms or Health Problems: How confident are you that you can keep other symptoms or health problems from interfering with the things you want to do? Select Number: 6 Different Tasks and Activities: How confident are you that you can do the different tasks and activities needed to manage your health condition so as to reduce your need to see a doctor? Select Number: 8 Medication: How confident are you that you can do things other than just taking medication to reduce how much your illness affects your everyday life? Select Number: 8 Total Score:: 7 Nutrition Survey - Nutrition Survey Instructions Scoring Instructions: Scoring is as follows: Yes = 1 points. No = 0 point. Patient score that is >/=12 is considered to be at potential nutritional risk and could benefit from a referral to a registered dietitian. - Nutrition Survey Initial Have you lost >10 lbs over the past 2 months without trying?: Yes Are you following a special diet at home for diabetes, low fat, or low salt?: No Are you interested in meeting with a dietitian for help understanding your diet?: Yes Do you eat less than 3 meals a day?: No Do you eat fatty meats (magallon, sausage, ribs, etc), fried foods, desserts, large amounts of salad dressings, margarine, butter, or cheese most days?: No Do you have food allergies? [Enter types in comment field]: No Do you eat in restaurants more than 3 times a week?: Yes Do you season food with salt, seasoning salt, or garlic salt?: Yes Do you used canned, boxed, frozen meals, or soups, seasoning packets?: No Total Score:: 4
--- NOTE | 2018-11-21 13:02 | PCM.CR.HP2 ---
CR - History & Physical - General Arrival date:: 11/21/18 Arrival time:: 13:04 Date of Referral:: 11/11/18 Date of CR Evaluation:: 11/21/18 Referring Physician: Dr. Jose L Viera Primary Diagnosis: Z95.5 PTCA - History of Present Cardiac Event Onset Date: Enter Onset Date of cardiac illnesses in Comment field below PTCA or coronary stenting:: Yes Interventions with present event:: 11/11/2018 - Medications Home Medications: Ambulatory Orders Medication Instructions Recorded albuterol sulfate HFA 90 1 puff INHALATION Q6H PRN 10/18/18 mcg/actuation aerosol inhaler glycopyrrolate 9 mcg-formoterol 2 puff INHALATION BID 10/18/18 4.8 mcg HFA aerosol inhaler lisinopril 20 1 tab PO DAILY 10/18/18 mg-hydrochlorothiazide 12.5 mg tablet pravastatin 40 mg tablet 40 mg PO QHS tab 10/18/18 varenicline 0.5 mg (11)-1 mg (42) 1 tab PO BID tab 10/18/18 tablets in a dose pack varenicline 1 mg tablet 1 mg PO BID 10/18/18 apixaban 2.5 mg tablet 2.5 mg PO BID #90 tab 10/19/18 clopidogrel 75 mg tablet 75 mg PO QDAY #90 tab 11/03/18 Aspirin [Aspirin EC] 81 mg PO DAILY 11/11/18 Metoprolol Tartrate [Lopressor 50 mg PO BID #60 tablet 11/12/18 (beta estephanie)] - Allergies Allergies/Adverse Reactions: Allergies No Known Allergies Allergy (Verified 11/10/18 07:32) - Sleep Disorder Evaluation Hx of Sleep Apnea: No Do you snore loudly (louder than talking or can be heard through closed doors)?: No Do you often feel tired/ fatigued/ sleepy during daytime?: No Has anyone observed you stop breathing during sleep?: No History of Hypertension (for STOP score): Yes STOP Results: Negative Advanced Directives - Advanced Directives Power of Reference And Instruction Librarian: No Living Will: No Advance Directives Information Provided: No Advance Directives on File: No DNR Order?:: No Past Medical History - Past Medical Illness Medical History: Past Medical History (Last Updated 11/11/18 @ 20:59 by Grace García) Atherosclerotic heart disease of [place] coronary artery without angina pectoris (Chronic) I25.10 JASPREET distal RCA w/ a Resolute Integrity 3.0 x 15 mm 11/11/18 Cardiomyopathy in diseases classified elsewhere (Acute) I43 Persistent atrial fibrillation with rapid ventricular response (Acute) I48.1 Nicotine dependence (Chronic) F17.200 Hyperlipidemia (Chronic) E78.5 Essential hypertension (Chronic) I10 Basal cell carcinoma C44.91 left cheek COPD (chronic obstructive pulmonary disease) J44.9 Emphysema/COPD J43.9 Lung nodule R91.1 - Past Surgical History Surgical History: Past Surgical History (Last Updated 11/11/18 @ 20:59 by Grace García) History of coronary artery stent placement (Resolved) Onset Date: 11/11/18 Z95.5 [id number] RCA w/ a Resolute Integrity 3.0 x 15 mm 11/11/18 History of hernia surgery Z98.890, Z87.19 History of resection of small bowel Z90.49 - Family History Summary Family History: Family History (Last Reviewed 10/19/18 @ 13:41 by Jose L Viera MD) Mother , Age 73 Asthma Diabetes Kidney disease Father , age 63 Cancer stomach and lung Sister CHF (congestive heart failure) Sister Colon cancer Social History - Smoking History Smoking Status: Former smoker - stopped 23 days ago Years Smokin Packs Smoked per Day: 1 Hx Tobacco Use: Yes Hx Smoking Exposure: Yes - Alcohol Use Alcohol Usage: No - Substance Abuse Hx Substance Use: No - Occupation Occupation (List type of work in comments):: Retired - Hobbies, Recreation, Social Activities Hobbies: Other - gardening Recreational Activities: I am able to engage in most, but not all activities Social Environment - Status Marital Status: - Current Living Arrangements Living Environment:: Spouse - Children How many children do you have?: 1 Do any of your children live nearby?: Yes - Safety Do you feel safe in your surroundings?: Yes - Assistance Do you need any assistance at home?: none Review of Systems - Review of Systems Hints: Right click = Denies ([place]). Left click = Reports ([place]) Review of Present Symptoms: Reports: Fatigue, Heart Arrhythmia/Irregularities, Appetite - Normal, Sleep - Normal. Denies: Shortness of Breath at Rest, Shortness of Breath with Exertion, PVD, Operative Discomfort, Angina, Wound Healing, Dizziness/Lightheadedness, Appetite - Special Diet, Sexual Changes - Pain Is Patient Pain Free?: Yes Risk Factor Assessment - Chief Complaint Chief Complaint: PTCA - Vital Signs Pulse Ox: 98 Blood Pressure: 130/64 - Pulse Pulse Rate: 47 Pulse Rhythm: Regular - Hypertension Blood Pressure Sitting - Left Arm: 130/64 - Diabetes Nutrition Referral for Diabetes: No - Obesity Height: 1.78 m Weight:: 75.296 kg Weight in Pounds: 166.0 lbs Body Mass Index (BMI): 23.8 Nutritional Referral for Obesity: No - Physical Inactivity Physical Inactivity: Reg Exercise 30 min/day - walking - Risk Stratification Risk Guidelines: Moderate Risk: Risk Factor for Dyslipidemia, Risk Factor for Diabetes, Risk Factor for Obesity, Risk Factor for Sedentary Lifestyle, Risk Factor for Depression, Highest Risk: Risk Factor for Smoking, Risk Factor for Hypertension - For Smoking Smoking Risk Guidelines: Smoking Low Risk: None or quit greater than 6 months ago. Smoking Moderate Risk: Smoker or quit 6 months or less ago. Smoking High Risk: Smoker - For Dyslipidemia Dyslipidemia Risk Guidelines: Low Risk: Moderate Risk: High Risk: 15-25% fat 25.1-29% fat >/= 30% fat. <7% sat fat 7-9% sat fat >9% sat fat. <150 mg chol 150-299 mg chol >/= 300 mg chol. LDL <100 LDL 100-129 LDL >/= 130. Chol/HDL ratio <5.0 Chol/HDL ratio 5.0-6.0 Chol/HDL ratio >6.0. Triglycerides <100 Triglycerides 100-149 Triglycerides >/= 150 - For Diabetes Mellitus Diabetes Risk Guidelines: Diabetes Low Risk: HgA1c <6.5% and/or FBG <120. Diabetes Moderate Risk: HgA1c 6.6-7.9% and/or FBG 120-180. Diabetes High Risk: HgA1c >/= 8% and/or FBG >180 - For Obesity/Overweight Obesity/Overweight Risk Guidelines: Obesity Low Risk: BMI <25.0. Obesity Moderate Risk: BMI 25-29.9. Obesity High Risk: BMI >/= 30.0 - For Hypertension Hypertension Risk Guidelines: Hypertension Low Risk: Systolic <120 and Diastolic <80. Hypertension Moderate Risk: Systolic 120-139 and Diastolic 80-89. Hypertension High Risk: Systolic >/= 140 and Diastolic >/= 90 - For Sedentary Lifestyle Sedentary Lifestyle Risk Guidelines: Sedentary Lifestyle Low Risk: >/= 1,500 kcal/week. Sedentary Lifestyle Moderate Risk: 700-1,499 kcal/week. Sedentary Lifestyle High Risk: < 700 kcal/week - For Depression Depression Risk Guidelines: Depression Low Risk: Not clinically depressed. Depression Moderate Risk: Mildly depressed. Depression High Risk: Clinically depressed - Family History Family History: Family History (Last Reviewed 10/19/18 @ 13:41 by Jose L Viera MD) Mother Asthma Diabetes Kidney disease Father Cancer Sister CHF (congestive heart failure) Sister Colon cancer Motivation - Motivation to Participate On a scale of 1 to 10, how prepared are you to commit to attending program?: 9 What do you see as barriers to successfully being able to complete the program?: none What do you see as the benefits of succesfully completing the program? In other words, what do you hope to get out of participating in the program?: more energy Are there issues you are dealing with that will interfere with completing the program?: none Do you have a spouse or signficant other, family or friends who will help support you to complete the program?: yes
[2018-11-21 14:10] VITALS: BP 130/64; PULSE 47; O2SAT 98; BMI 23.8
[2018-11-21 14:11] VITALS: BP 130/64
== END | disposition home or self-care (01) ==
LOC: CR 08:53
PROVIDERS: Family Provider Family Medicine Geriatric Medicine; PCP Family Medicine Geriatric Medicine; Referring Provider Internal Medicine Cardiovascular Disease; Visit Provider Internal Medicine Cardiovascular Disease
DX: Z95.5 Presence of coronary angioplasty implant and graft (principal)

== ENCOUNTER 2018-12-05 14:15 | Outpatient (RCR) | payer MEDICARE, OTHER, SELFPAY ==
[2018-11-11 14:55] VITALS: BMI 22.2
[2018-11-21 13:59] VITALS: BMI 23.8
== END 2018-12-06 23:59 ==
LOC: CR 14:15
PROVIDERS: Family Provider Family Medicine Geriatric Medicine; PCP Family Medicine Geriatric Medicine; Referring Provider Internal Medicine Cardiovascular Disease; Visit Provider Internal Medicine Cardiovascular Disease
DX: I25.10 Atherosclerotic heart disease of native coronary artery without angina pectoris (principal); I43 Cardiomyopathy in diseases classified elsewhere; I48.1 Persistent atrial fibrillation; Z95.5 Presence of coronary angioplasty implant and graft
CPT/HCPCS: 93798

== ENCOUNTER → 2018-12-21 | Outpatient (CLI) | payer MEDICARE, OTHER, SELFPAY ==
[2018-11-11 14:55] VITALS: BMI 22.2
[2018-12-21 11:55] VITALS: BMI 23.6
[2018-12-21 13:34] LABS: Absolute Lymphocyte Count 1.85 X10^3/ul (0.83-4.51); Absolute Neutrophil Count 5.5 X10^3/uL (2.0-7.7); Basophil# 0.02 X10^3/uL; Basophil% 0.2 % (0-1); Eosinophil# 0.07 X10^3/uL; Eosinophils% 0.9 % (0-5); Hematocrit 44.3 % (40-54); Hemoglobin 14.7 g/dl (13.0-16.5); Lymphocyte # 1.85 X10^3/ul (4.0); Lymphocyte % 22.9 % (19-41); Mean Corp Hgb Conc 33.2 g/gl (32-36); Mean Corpuscular Hgb 29.1 pg (27.0-32.0); Mean Corpuscular Volume 87.5 fL (80-94); Mean Platelet Vol. 10.4 fl (6.2-12.0); Monocyte# 0.65 X10^3/uL; Neutrophil # 5.47 X10^3/uL (2.7-7.7); Neutrophil % 67.6 % (47-70); POSITIVE COUNT NO; POSITIVE DIFFERENTIAL NO; POSITIVE MORPHOLOGY NO; Platelet Count 205 K/mm3 (150-450); RBC Distribution Width CV 15.4 % (11.6-14.6); RBC Distribution Width SD 49.1 fl (35.1-43.9); Red Blood Count 5.06 M/mm3 (4.6-6.2); White Blood Count 8.1 K/mm3 (4.4-11.0)
[2018-12-21 13:55] LABS: Vitamin D,25 Hydroxy 28.6 ng/mL (29.95-100.01)
[2018-12-21 13:59] LABS: AST(SGOT) 18 U/L (15-37); Alanine Aminotransfer ALT/SGPT 24 U/L (16-61); Albumin, Serum 3.7 g/dL (3.2-5.0); Alkaline Phosphatase 64 U/L (45-117); Anion Gap 8 (5-15); BUN 15 mg/dL (7-18); BUN/Creat Ratio 11.3 RATIO (10-20); Calcium,Total 8.9 mg/dL (8.5-10.1); Chloride 104 mmol/L (98-107); Creatinine, Serum 1.33 mg/dL (0.70-1.30); EST Glomerular Filtration Rate 57 mL/min (>60); Est Glom Filt Rate - Afr Amer 69 mL/min (>60); Globulin 3.6 g/dL (2.2-4.2); Glucose 104 mg/dL (74-106); Potassium 4.2 mmol/L (3.5-5.1); Protein, Total 7.3 g/dL (6.4-8.2); Sodium Level 139 mmol/L (136-145); Thyroid Stim Hormone (TSH) 1.55 uIU/mL (0.358-3.74)
== END | disposition home or self-care (01) ==
LOC: POLAB3 12:00
PROVIDERS: Family Provider Family Medicine Geriatric Medicine; PCP Family Medicine Geriatric Medicine; Visit Provider Family Medicine Geriatric Medicine
DX: E55.9 Vitamin D deficiency, unspecified (principal); I10 Essential (primary) hypertension; I25.10 Atherosclerotic heart disease of native coronary artery without angina pectoris; Z95.5 Presence of coronary angioplasty implant and graft
CPT/HCPCS: 36415; 80053; 82306; 84443; 85025; 93798

== ENCOUNTER 2019-01-06 14:15 | Outpatient (RCR) | payer MEDICARE, OTHER, SELFPAY ==
[2018-11-11 14:55] VITALS: BMI 22.2
[2018-12-07 01:52] VITALS: BMI 23.8
--- NOTE | 2018-12-21 08:21 | PCM.CR.ITP ---
Exercise - 30-day Assessment - Visit Date of Eval: 12/21/18 Session #:: 11 - Stages of Change Stages of Change:: Action - Physician Prescribed Exercise Modalities: Treadmill, Rower, Airdyne, NuStep Frequency (days/week): 3 Duration (Minutes):: 30-45 Intensity: 60-80% age predicted maximum heart rate reserve METs - Progression: 0.5-1.0 MET, RPE 11-14 WEEK: 3 Target Heart Rate:: 100-130 - Hypertension Resting Blood Pressure:: 138/68 Peak Exercise Blood Pressure:: 158/82 Medication Changes:: No - Intervention Home Exercise/Activity Goal:: Moderate Exercise 30 min/day x 5 days/wk - Education Goals:: Warm-up, RPE MELISA Scale, S/S, Safe Exercise, Self-Monitoring Nutrition - 30-Day Assessment - Program Goals Nutrition Program Goals: LDL <70. Total Cholesterol <200. HDL >45. Triglycerides <150. HgbA1C <7%. BMI <25 - Visit Date of Eval: 12/21/18 - Stages of Change Stages of Change:: Action - Lipids Has the patient seen the dietitian?: No - Diabetes Diabetes:: No Insulin: No Non-Insulin Dependent?: No - Weight Management Weight:: 161 lb - Intervention Referral to dietitian:: No Referral to Diabetic Clinic:: No Will attend diet classes:: Yes - Education Attended class for:: Healthy eating Tobacco - 30-Day Assessment - Program Goals Tobacco Program Goals: Complete smoking cessation. Attend education classes. Improve Knowledge Test score - Stage of Change Stages of Change:: Action - Learning Barriers Learning Barriers: Participates in education - Family Support Do you have family support?: Yes - Tobacco Use Tobacco Use: Non-smoker Do you use smokeless tobacco?: No - Intervention Smoking Cessation Referral:: No Individual Education/Counseling:: No Education Schedule Given:: Yes - Education Attended class for:: Coronary artery disease, Risk factors, Sexuality, Medical compliance, Cardiac A&P, Angina signs & symptoms Psychosocial - Initial Assess - Target Goals Target Goals: Assess presence or absence of depression. Using a valid screening tool, maximizes coping skills. Positive support system - Psychosocial Test Tool Used:: HANDS Depression Questionnaire - Assistive Devices Fall Risk Assessed:: Yes Psychosocial - 30-Day Assess - Target Goals Target Goals: Assess presence or absence of depression. Using a valid screening tool, maximizes coping skills. Positive support system - Stages of Change Stages of Change:: Action - Psychosocial Test Tool Used:: HANDS Depression Questionnaire - Intervention PS - Interventions: Yes Attend Stress Management Classes, No Referral to Mental Health, No Referral to [facility] Case Management, No Referral to Physician, No Uses Stress Management Skills - Education Attended classes for:: Coping techniques, Signs & symptoms of depression, Stress management, Relaxation techniques - Patient/Program Goal Preventative Medication(s):: Aspirin, Clopidogrel, Beta estephanie, Statin/lipid - Assistive Devices Assistive Devices:: None Fall Risk Assessed:: Yes Patient Health Questionnaire 30-Day Re-eval Assessment 1. Little interest or pleasure in doing things: Not at all 2. Feeling down, depressed, or hopeless: Not at all 3. Trouble falling or staying asleep, or sleeping too much: Not at all 4. Feeling tired or having little energy: Several days 5. Poor appetite or overeating: Several days 6. Feeling bad about yourself -- or that you are a failure or have let yourself or your family down: Not at all 7. Trouble concentrating on things, such as reading the newspaper or watching television: Not at all 8. Moving or speaking so slowly that other people could have noticed. Or the opposite - being so fidgety or restless that you have been moving around a lot more than usual: Not at all 9. Thoughts that you would be better off , or of hurting yourself in some way: Not at all Total Score: 2 Self-Efficacy 30-Day Re-eval Assessment We would like to know how confident you are in doing certain activities. Please select your confidence level for:: Select your confidence level for the following using the scale 1-10 where 1 is not at all confident and 10 is totally confident. Your score is the average of all 6 responses. Fatigue: How confident are you that you can keep the fatigue caused by your disease from interfering with the things you want to do? Select Number: 9 Physical Discomfort or Pain: How confident are you that you can keep the physical discomfort or pain of your disease from interfering with the things you want to do? Select Number: 8 Emotional Distress: How confident are you that you can keep the emotional distress caused by your disease from interfering with the things you want to do? Select Number: 9 Other Symptoms or Health Problems: How confident are you that you can keep other symptoms or health problems from interfering with the things you want to do? Select Number: 7 Different Tasks and Activities: How confident are you that you can do the different tasks and activities needed to manage your health condition so as to reduce your need to see a doctor? Select Number: 9 Medication: How confident are you that you can do things other than just taking medication to reduce how much your illness affects your everyday life? Select Number: 9 Total Score:: 8
[2018-12-21 08:30] VITALS: BP 138/68; BP 158/82
== END 2019-01-06 23:59 ==
LOC: CR 14:15
PROVIDERS: Family Provider Family Medicine Geriatric Medicine; PCP Family Medicine Geriatric Medicine; Referring Provider Internal Medicine Cardiovascular Disease; Visit Provider Internal Medicine Cardiovascular Disease
DX: I25.10 Atherosclerotic heart disease of native coronary artery without angina pectoris (principal); I43 Cardiomyopathy in diseases classified elsewhere; I48.1 Persistent atrial fibrillation; Z95.5 Presence of coronary angioplasty implant and graft
CPT/HCPCS: 93798

== ENCOUNTER → 2019-01-09 | Outpatient (CLI) | payer MEDICARE, OTHER, SELFPAY ==
[2018-11-11 14:55] VITALS: BMI 22.2
[2018-11-30 08:57] VITALS: BMI 23.6
[2018-12-21 11:55] VITALS: BMI 23.6
--- NOTE | 2019-01-09 12:40 | ECHOD_ITS ---
Reason For Study: CHF Procedure This was a 2D Doppler, Color Flow transthoracic echocardiogram. Exam performed in department. Left Ventricle Normal LV size. Left ventricular systolic function is normal. The estimated ejection fraction is 35 %. There is moderate global hypokinesis of the left ventricle. Right Ventricle Normal RV size. Normal systolic function. Atria The left atrium is mildly enlarged. Normal right atrium. Mitral Valve Normal mitral valve. Tricuspid Valve Normal tricuspid valve. Aortic Valve Trisinus/trileaflet aortic valve. Pulmonic Valve Normal pulmonic valve. Great Vessels Normal aortic root. The pulmonary artery is normal size. Pericardium/Pleural No pericardial effusion. MMode/2D Measurements & Calculations LVIDd: 5.4 cm IVSd: 1.3 cm Ao root diam: 3.3 cm LVIDs: 4.3 cm LVPWd: 1.1 cm LA dimension: 4.0 cm FS: 21.5 % LAV(MOD-bp): 64.4 ml LVAd ap4: 37.0 cm2 SV(MOD-sp4): 55.8 ml LAV(MOD-bp) Indexed: 34.7 ml/m2 EDV(MOD-sp4): 131.6 ml LAV(MOD-sp2): 62.9 ml EDV(sp4-el): 134.3 ml LAV(MOD-sp4): 63.1 ml LVAs ap4: 26.1 cm2 ESV(MOD-sp4): 75.8 ml ESV(sp4-el): 71.5 ml EF(MOD-sp4): 42.4 % EF(sp4-el): 46.8 % SV(sp4-el): 62.9 ml LA A4 area: 21.4 cm2 RA A4 area: 15.7 cm2 Doppler Measurements & Calculations MV E max tracy: 124.6 cm/sec Ao V2 max: 135.9 cm/sec LV V1 max: 112.0 cm/sec Ao max P.4 mmHg LV V1 max P.0 mmHg PA V2 max: 104.9 cm/sec Interpretation Summary Normal LV size. Left ventricular systolic function is normal. The estimated ejection fraction is 35 %. There is moderate global hypokinesis of the left ventricle. The extent of improvement is mild Compared to previous study, the left ventricular systolic function has improved.. Ordering Physician: Jose L Viera Referring Physician: Kaiden Benitez Performed By: Jaciel Garner RCS
== END | disposition home or self-care (01) ==
LOC: CVS 12:40
PROVIDERS: Family Provider Family Medicine Geriatric Medicine; PCP Family Medicine Geriatric Medicine; Referring Provider Nurse Practitioner Family; Visit Provider Nurse Practitioner Family
DX: Z95.5 Presence of coronary angioplasty implant and graft (principal)
CPT/HCPCS: 93306; 93798

== ENCOUNTER → 2019-01-17 | Outpatient (CLI) | payer MEDICARE, OTHER, SELFPAY ==
[2018-11-11 14:55] VITALS: BMI 22.2
[2019-01-17 15:06] VITALS: BMI 23.3
[2019-01-17 17:32] LABS: Anion Gap 8 (5-15); BUN 15 mg/dL (7-18); BUN/Creat Ratio 14.2 RATIO (10-20); Calcium,Total 8.5 mg/dL (8.5-10.1); Chloride 110 mmol/L (98-107); Creatinine, Serum 1.06 mg/dL (0.70-1.30); EST Glomerular Filtration Rate 74 mL/min (>60); Est Glom Filt Rate - Afr Amer 90 mL/min (>60); Glucose 85 mg/dL (74-106); Potassium 3.8 mmol/L (3.5-5.1); Sodium Level 145 mmol/L (136-145)
== END | disposition home or self-care (01) ==
LOC: LAB 16:39
PROVIDERS: Family Provider Family Medicine Geriatric Medicine; PCP Family Medicine Geriatric Medicine; Referring Provider Internal Medicine Cardiovascular Disease; Visit Provider Internal Medicine Cardiovascular Disease
DX: I48.1 Persistent atrial fibrillation (principal); I43 Cardiomyopathy in diseases classified elsewhere
CPT/HCPCS: 36415; 80048

== ENCOUNTER 2019-01-23 10:26 | Day surgery (SDC) | payer MEDICARE, OTHER, SELFPAY ==
[2018-11-11 14:55] VITALS: BMI 22.2
[2019-01-17 15:06] VITALS: BMI 23.3
[2019-01-20 07:59] VITALS: BMI 23.3
--- NOTE | 2019-01-23 12:13 | CARDIOVERS ---
Cardioversion Cardioversion: DC cardioversion. 68-year-old man with a history of chronic persistent atrial fibrillation. The patient was brought to the cardiac catheterization lab in the postabsorptive nonsedated state. The patient was seen by Dr. Chavarria of the critical care division. Informed consent was obtained. 6 mg of intermittent intravenous etomidate was administered after anterior-posterior pads had been applied. 200 J of synchronized DC cardioversion energy were applied with prompt reversal to sinus rhythm. Patient tolerated the procedure well. Conclusion: Successful DC cardioversion to sinus rhythm. Continue current medical therapy.
--- NOTE | 2019-01-23 12:48 | PCM.OP.PRO ---
Procedure Report Date of Procedure: 01/23/19 CONSCIOUS SEDATION REPORT DATE OF SERVICE: January 23, 2019 BRIEF HISTORY OF PRESENT ILLNESS: The patient is a 68-year-old male who presented to [facility] for an elective outpatient cardioversion due to underlying atrial fibrillation. The patient has never undergone a previous cardioversion. He denies any previous anesthetic complications. He does have a known history of mild obstructive lung disease. He does have a history of tobacco dependency, which is currently in remission. He has never been diagnosed with obstructive sleep apnea. The patient's last surface echocardiogram revealed an ejection fraction of approximately 35%. PHYSICAL EXAMINATION: VITAL SIGNS: Reviewed and were acceptable. GENERAL: The patient is a male, in no apparent distress, speaking in full sentences. HEENT: Normocephalic, atraumatic. Mucous membranes are moist and pink. Good mouth opening noted. Trachea is midline. Edentulous. CHEST: S1, S2 irregularly irregular. No murmurs, rubs or gallops were noted. LUNGS: Clear to auscultation bilaterally without appreciable wheezes, rales or rhonchi. ABDOMEN: Soft, nontender, nondistended. Positive bowel sounds. EXTREMITIES: There is no clubbing, cyanosis or edema. ASA Class: II DESCRIPTION OF PROCEDURE: After confirmation of informed consent, the patient's anesthesia plan was reviewed in detail. Etomidate was chosen. Risks and benefits were reviewed and the patient agreed to proceed. At 1157, the patient was given 6 mg of etomidate. The patient achieved an appropriate level of sedation and was given a 200 joule synchronized cardioversion by Dr. Viera at the bedside. This was successful in achieving normal sinus rhythm. The patient was monitored until 1204, at which time he reached his baseline mental status and function. The patient tolerated the procedure well. COMPLICATIONS: None ESTIMATED BLOOD LOSS: None RECOMMENDATIONS: Okay to recover in usual fashion. Code Visit 9xxxx: Other Procedure See Report - [id number]
--- NOTE | 2019-01-23 12:51 | PRO.PCM_ITS ---
Procedure Report Date of Procedure: 01/23/19 CONSCIOUS SEDATION REPORT DATE OF SERVICE: January 23, 2019 BRIEF HISTORY OF PRESENT ILLNESS: The patient is a 68-year-old male who presented to [facility] for an elective outpatient cardioversion due to underlying atrial fibrillation. The patient has never undergone a previous cardioversion. He denies any previous anesthetic complications. He does have a known history of mild obstructive lung disease. He does have a history of tobacco dependency, which is currently in remission. He has never been diagnosed with obstructive sleep apnea. The patient's last surface echocardiogram revealed an ejection fraction of approximately 35%. PHYSICAL EXAMINATION: VITAL SIGNS: Reviewed and were acceptable. GENERAL: The patient is a male, in no apparent distress, speaking in full sentences. HEENT: Normocephalic, atraumatic. Mucous membranes are moist and pink. Good m outh opening noted. Trachea is midline. Edentulous. CHEST: S1, S2 irregularly irregular. No murmurs, rubs or gallops were noted. LUNGS: Clear to auscultation bilaterally without appreciable wheezes, rales or rhonchi. ABDOMEN: Soft, nontender, nondistended. Positive bowel sounds. EXTREMITIES: There is no clubbing, cyanosis or edema. ASA Class: II DESCRIPTION OF PROCEDURE: After confirmation of informed consent, the patient's anesthesia plan was reviewed in detail. Etomidate was chosen. Risks and benefits were reviewed and the patient agreed to proceed. At 1157, the patient was given 6 mg of etomidate. The patient achieved an appropriate level of sedation and was given a 200 joule synchronized cardioversion by Dr. Viera at the bedside. This was successful in achieving normal sinus rhythm. The patient was monitored until 1204, at which time he reached his baseline mental status and function. The patient tolerated the procedure well. COMPLICATIONS: None ESTIMATED BLOOD LOSS: None RECOMMENDATIONS: Okay to recover in usual fashion. Code Visit 9xxxx: Other Procedure See Report - [id number]
--- NOTE | 2019-01-23 15:50 | CHAPLAIN ---
Type of Pastoral Visit _x__ Initial Visit ___ Follow-up Visit ___ On-call Visit ___ General Patient Visit ___ Spiritual Assessment ___ Family Conference ___ Bereavement ___ Rapid Response ___ Code Blue ___ Other (describe below) Pastoral Care Referral From _x__ Patient ___ Family ___ Nurse ___ Physician ___ Senior Safety Management Consultant ___ Pantry Steward/Stewardess ___ Other (describe below) Sacrament/Intervention _x__ Active listening ___ Anointing ___ Church ___ Bereavement ___ Communion ___ Maya exploration ___ ___ Life review _x__ Prayer ___ Reconciliation ___ Sacrament of Sick ___ Supportive presence ___ Wedding ___ Other (describe below) Pastoral Comments
== END 2019-01-23 13:19 | disposition home or self-care (01) ==
LOC: CLSP 10:29
PROVIDERS: Family Provider Family Medicine Geriatric Medicine; PCP Family Medicine Geriatric Medicine; Referring Provider Internal Medicine Cardiovascular Disease; Visit Provider Internal Medicine Cardiovascular Disease
DX: I48.1 Persistent atrial fibrillation (principal); I10 Essential (primary) hypertension; I43 Cardiomyopathy in diseases classified elsewhere; Z95.5 Presence of coronary angioplasty implant and graft; E78.5 Hyperlipidemia, unspecified; I25.10 Atherosclerotic heart disease of native coronary artery without angina pectoris; J44.9 Chronic obstructive pulmonary disease, unspecified; Z85.828 Personal history of other malignant neoplasm of skin; Z87.891 Personal history of nicotine dependence; Z79.51 Long term (current) use of inhaled steroids; Z79.02 Long term (current) use of antithrombotics/antiplatelets; Z79.899 Other long term (current) drug therapy
CPT/HCPCS: 92960; 93005

== ENCOUNTER 2019-02-01 14:15 | Outpatient (RCR) | payer MEDICARE, OTHER, SELFPAY ==
[2018-11-11 14:55] VITALS: BMI 22.2
[2018-12-21 11:55] VITALS: BMI 23.6
[2019-01-07 01:09] VITALS: BP 138/68; BP 158/82
--- NOTE | 2019-01-20 08:38 | CR.ITP_ITS ---
Exercise - 60-Day Assessment - Visit Date of Eval: 01/20/19 Session #:: 24 - Stages of Change Stages of Change:: Action - Physician Prescribed Exercise Modalities: Treadmill, Airdyne, NuStep Frequency (days/week): 3 Duration (Minutes):: 30-45 Intensity: 60-80% age predicted maximum heart rate reserve METs - Progression: 0.5-1.0 MET, RPE 11-14 WEEK: 3.5 Target Heart Rate:: 100-130 w/max HR 146 - Hypertension Resting Blood Pressure:: 160/84 Peak Exercise Blood Pressure:: 170/90 Medication Changes:: Yes - Increased metoprolol tartrate to 75mg BID; DCd Cardizem - Intervention Home Exercise/Activity Goal:: Moderate Exercise 30 min/day x 5 days/wk - Education Goals:: Warm-up, RPE MELISA Scale, S/S, Safe Exercise, Self-Monitoring - Exercise Program Goals Exercise Program Goals: Aerobic Activity >30 min Nutrition - 60-Day Assessment - Program Goals Nutrition Program Goals: LDL <70. Total Cholesterol <200. HDL >45. Triglycerides <150. HgbA1C <7%. BMI <25 - Visit Date of Eval: 01/20/19 - Stages of Change Stages of Change:: Action - Lipids Has the patient seen the dietitian?: No - Diabetes Diabetes:: No - Weight Management Weight:: 164 lb 8 oz - increased 3.5# - Intervention Referral to dietitian:: No Referral to Diabetic Clinic:: No Will attend diet classes:: Yes - Education Attended class for:: Healthy eating Tobacco - 60-Day Assessment - Program Goals Tobacco Program Goals: Complete smoking cessation. Attend education classes. Improve Knowledge Test score - Stage of Change Stages of Change:: Action - Learning Barriers Learning Barriers: Participates in education - Family Support Do you have family support?: Yes - Tobacco Use Tobacco Use: Non-smoker Do you use smokeless tobacco?: No - Intervention Education Schedule Given:: Yes - Education Attended class for:: Coronary artery disease, Risk factors, Sexuality, Medical compliance, Cardiac A&P, Angina signs & symptoms Psychosocial - Initial Assess - Target Goals Target Goals: Assess presence or absence of depression. Using a valid screening tool, maximizes coping skills. Positive support system - Psychosocial Test Tool Used:: HANDS Depression Questionnaire - Assistive Devices Fall Risk Assessed:: Yes Psychosocial - 60-Day Assess - Target Goals Target Goals: Assess presence or absence of depression. Using a valid screening tool, maximizes coping skills. Positive support system - Stages of Change Stages of Change:: Action - Psychosocial Test Tool Used:: HANDS Depression Questionnaire - Intervention PS - Interventions: Yes Attend Stress Management Classes, Yes Uses Stress Management Skills, No Referral to Mental Health, No Referral to [facility] Case Management, No Referral to Physician - Education Attended classes for:: Coping techniques, Signs & symptoms of depression, Stress management, Relaxation techniques - Patient/Program Goal Preventative Medication(s):: Aspirin, Clopidogrel, Beta estephanie, Statin/lipid - Assistive Devices Assistive Devices:: None Fall Risk Assessed:: Yes Patient Health Questionnaire 60-Day Re-eval Assessment 1. Little interest or pleasure in doing things: Not at all 2. Feeling down, depressed, or hopeless: Not at all 3. Trouble falling or staying asleep, or sleeping too much: Several days 4. Feeling tired or having little energy: Not at all 5. Poor appetite or overeating: Not at all 6. Feeling bad about yourself -- or that you are a failure or have let yourself or your family down: Not at all 7. Trouble concentrating on things, such as reading the newspaper or watching television: Not at all 8. Moving or speaking so slowly that other people could have noticed. Or the opposite - being so fidgety or restless that you have been moving around a lot more than usual: Not at all 9. Thoughts that you would be better off , or of hurting yourself in some way: Not at all How difficult have these problems made it for you to do your work, take care of things at home, or get along with other people?: Not difficult at all Total Score: 1 Self-Efficacy 60-Day Re-eval Assessment We would like to know how confident you are in doing certain activities. Please select your confidence level for:: Select your confidence level for the following using the scale 1-10 where 1 is not at all confident and 10 is totally confident. Your score is the average of all 6 responses. Fatigue: How confident are you that you can keep the fatigue caused by your disease from interfering with the things you want to do? Select Number: 9 Physical Discomfort or Pain: How confident are you that you can keep the physical discomfort or pain of your disease from interfering with the things you want to do? Select Number: 8 Emotional Distress: How confident are you that you can keep the emotional distress caused by your disease from interfering with the things you want to do? Select Number: 9 Other Symptoms or Health Problems: How confident are you that you can keep other symptoms or health problems from interfering with the things you want to do? Select Number: 8 Different Tasks and Activities: How confident are you that you can do the different tasks and activities needed to manage your health condition so as to reduce your need to see a doctor? Select Number: 9 Medication: How confident are you that you can do things other than just taking medication to reduce how much your illness affects your everyday life? Select Number: 10 Total Score:: 8
[2019-01-20 08:39] VITALS: BP 160/84; BP 170/90
== END 2019-02-05 23:59 ==
LOC: CR 14:15
PROVIDERS: Family Provider Family Medicine Geriatric Medicine; PCP Family Medicine Geriatric Medicine; Referring Provider Internal Medicine Cardiovascular Disease; Visit Provider Internal Medicine Cardiovascular Disease
DX: I25.10 Atherosclerotic heart disease of native coronary artery without angina pectoris (principal); I43 Cardiomyopathy in diseases classified elsewhere; I48.1 Persistent atrial fibrillation; Z95.5 Presence of coronary angioplasty implant and graft
CPT/HCPCS: 93005; 93798

== ENCOUNTER 2019-02-20 14:15 | Outpatient (RCR) | payer MEDICARE, OTHER, SELFPAY ==
[2018-11-11 14:55] VITALS: BMI 22.2
[2019-01-20 07:59] VITALS: BMI 23.3
[2019-02-06 00:48] VITALS: BP 160/84; BP 170/90
--- NOTE | 2019-02-20 07:02 | PCM.CR.ITP ---
Exercise - 60-Day Assessment - Visit Date of Eval: 02/20/19 Session #:: 21 - Stages of Change Stages of Change:: Action - Physician Prescribed Exercise Modalities: Treadmill, Airdyne, NuStep Frequency (days/week): 3 Duration (Minutes):: 30-45 Intensity: 60-80% age predicted maximum heart rate reserve METs - Progression: 0.5-1.0 MET, RPE 11-14 WEEK: 3.5 Target Heart Rate:: 100-130 witih max HR 127 - Hypertension Resting Blood Pressure:: 152/60 - Multi-Session report sent to physician regarding cont. elevated BPs. Peak Exercise Blood Pressure:: 146/60 Medication Changes:: Yes - Intervention Home Exercise/Activity Goal:: Moderate Exercise 30 min/day x 5 days/wk - Education Goals:: Warm-up, RPE MELISA Scale, S/S, Safe Exercise, Self-Monitoring - Exercise Program Goals Exercise Program Goals: Aerobic Activity >30 min Nutrition - 60-Day Assessment - Program Goals Nutrition Program Goals: LDL <70. Total Cholesterol <200. HDL >45. Triglycerides <150. HgbA1C <7%. BMI <25 - Visit Date of Eval: 02/20/19 - Stages of Change Stages of Change:: Action - Lipids Has the patient seen the dietitian?: No - Diabetes Diabetes:: No - Weight Management Weight:: 167 lb - stable +/- 2 pounds - Intervention Referral to dietitian:: No Referral to Diabetic Clinic:: No Will attend diet classes:: Yes - Education Attended class for:: Healthy eating Tobacco - 60-Day Assessment - Program Goals Tobacco Program Goals: Complete smoking cessation. Attend education classes. Improve Knowledge Test score - Stage of Change Stages of Change:: Action - Learning Barriers Learning Barriers: Participates in education - Family Support Do you have family support?: Yes - Tobacco Use Tobacco Use: Non-smoker - Intervention Smoking Cessation Referral:: No Education Schedule Given:: Yes - Education Attended class for:: Treating Heart Disease, How The Heart Works, What it means to have Heart Disease, How Coronary Artery Disease is Diagnosed, Heart Procedures, What Heart Medications Do, Risk Factors & Modifications, Living an Active Life, Nutrition, Emotions & Heart Disease, Stress Management & Relaxation, Sleep Disorders & Heart Disease Psychosocial - Initial Assess - Target Goals Target Goals: Assess presence or absence of depression. Using a valid screening tool, maximizes coping skills. Positive support system - Psychosocial Test Tool Used:: HANDS Depression Questionnaire - Assistive Devices Fall Risk Assessed:: Yes Psychosocial - 60-Day Assess - Target Goals Target Goals: Assess presence or absence of depression. Using a valid screening tool, maximizes coping skills. Positive support system - Stages of Change Stages of Change:: Action - Psychosocial Test Tool Used:: HANDS Depression Questionnaire - Intervention PS - Interventions: Yes Attend Stress Management Classes, Yes Uses Stress Management Skills, No Referral to Mental Health, No Referral to [facility] Case Management, No Referral to Physician - Education Attended classes for:: Coping techniques, Signs & symptoms of depression, Stress management, Relaxation techniques - Patient/Program Goal Preventative Medication(s):: Aspirin, TYREL inhibitor, Clopidogrel, Beta estephanie, Statin/lipid - Assistive Devices Assistive Devices:: None Fall Risk Assessed:: Yes Patient Health Questionnaire 60-Day Re-eval Assessment 1. Little interest or pleasure in doing things: Not at all 2. Feeling down, depressed, or hopeless: Not at all 3. Trouble falling or staying asleep, or sleeping too much: Several days 4. Feeling tired or having little energy: More than half the days 5. Poor appetite or overeating: Not at all 6. Feeling bad about yourself -- or that you are a failure or have let yourself or your family down: Not at all 7. Trouble concentrating on things, such as reading the newspaper or watching television: Not at all 8. Moving or speaking so slowly that other people could have noticed. Or the opposite - being so fidgety or restless that you have been moving around a lot more than usual: Not at all 9. Thoughts that you would be better off , or of hurting yourself in some way: Not at all How difficult have these problems made it for you to do your work, take care of things at home, or get along with other people?: Not difficult at all Total Score: 3 Self-Efficacy 60-Day Re-eval Assessment We would like to know how confident you are in doing certain activities. Please select your confidence level for:: Select your confidence level for the following using the scale 1-10 where 1 is not at all confident and 10 is totally confident. Your score is the average of all 6 responses. Fatigue: How confident are you that you can keep the fatigue caused by your disease from interfering with the things you want to do? Select Number: 6 Physical Discomfort or Pain: How confident are you that you can keep the physical discomfort or pain of your disease from interfering with the things you want to do? Select Number: 5 Emotional Distress: How confident are you that you can keep the emotional distress caused by your disease from interfering with the things you want to do? Select Number: 7 Other Symptoms or Health Problems: How confident are you that you can keep other symptoms or health problems from interfering with the things you want to do? Select Number: 5 Different Tasks and Activities: How confident are you that you can do the different tasks and activities needed to manage your health condition so as to reduce your need to see a doctor? Select Number: 6 Medication: How confident are you that you can do things other than just taking medication to reduce how much your illness affects your everyday life? Select Number: 6 Total Score:: 5
[2019-02-20 07:06] VITALS: BP 146/60; BP 152/60
== END 2019-03-08 23:59 ==
LOC: CR 14:15
PROVIDERS: Family Provider Family Medicine Geriatric Medicine; PCP Family Medicine Geriatric Medicine; Referring Provider Internal Medicine Cardiovascular Disease; Visit Provider Internal Medicine Cardiovascular Disease
DX: I25.10 Atherosclerotic heart disease of native coronary artery without angina pectoris (principal); I43 Cardiomyopathy in diseases classified elsewhere; I48.1 Persistent atrial fibrillation; Z95.5 Presence of coronary angioplasty implant and graft
CPT/HCPCS: 93798

== ENCOUNTER → 2019-03-21 09:01 | Outpatient (CLI) | payer MEDICARE, OTHER, SELFPAY ==
[2018-11-11 14:55] VITALS: BMI 22.2
[2019-01-20 07:59] VITALS: BMI 23.3
[2019-03-21 13:04] LABS: Absolute Lymphocyte Count 1.97 X10^3/uL (0.83-4.51); Absolute Neutrophil Count 4.6 X10^3/uL (2.0-7.7); Basophil# 0.04 X10^3/uL; Basophil% 0.6 % (0-1); Eosinophil# 0.08 X10^3/uL; Eosinophils% 1.1 % (0-5); Hematocrit 40.7 % (40-54); Lymphocyte # 1.97 X10^3/ul (4.0); Lymphocyte % 27.2 % (19-41); Mean Corp Hgb Conc 31.9 g/dL (32-36); Mean Corpuscular Hgb 29.7 pg (27.0-32.0); Mean Corpuscular Volume 93.1 fL (80-94); Mean Platelet Vol. 10.3 fl (6.2-12.0); Monocyte# 0.53 X10^3/uL; Monocyte% 7.3 % (0-10); NRBC Flagged by Analyzer 0 % (0-5); Neutrophil # 4.57 X10^3/uL (2.7-7.7); Neutrophil % 63.1 % (47-70); Platelet Count 224 K/mm3 (150-450); RBC Distribution Width CV 13.7 % (11.6-14.6); RBC Distribution Width SD 46.4 fl (35.1-43.9); Red Blood Count 4.37 M/mm3 (4.6-6.2); White Blood Count 7.2 K/mm3 (4.4-11.0)
[2019-03-21 13:23] LABS: Vitamin D,25 Hydroxy 32.7 ng/mL (29.95-100.01)
[2019-03-21 13:25] LABS: ALB/GLOB Ratio 0.9 RATIO (0.9-2.4); AST(SGOT) 29 U/L (15-37); Alanine Aminotransfer ALT/SGPT 33 U/L (16-61); Albumin, Serum 3.5 g/dL (3.2-5.0); Alkaline Phosphatase 72 U/L (45-117); Anion Gap 6 (5-15); BUN 17 mg/dL (7-18); BUN/Creat Ratio 12.6 RATIO (10-20); Calcium,Total 8.9 mg/dL (8.5-10.1); Chloride 108 mmol/L (98-107); Creatinine, Serum 1.35 mg/dL (0.70-1.30); EST Glomerular Filtration Rate 56 mL/min (>60); Est Glom Filt Rate - Afr Amer 68 mL/min (>60); Globulin 4.1 g/dL (2.2-4.2); Glucose 93 mg/dL (74-106); Potassium 4.4 mmol/L (3.5-5.1); Protein, Total 7.6 g/dL (6.4-8.2); Sodium Level 139 mmol/L (136-145)
== END ==
PROVIDERS: Family Provider Family Medicine Geriatric Medicine; PCP Family Medicine Geriatric Medicine; Visit Provider Family Medicine Geriatric Medicine
DX: E55.9 Vitamin D deficiency, unspecified (principal); I10 Essential (primary) hypertension
CPT/HCPCS: 36415; 80053; 82306; 84443; 85025

== ENCOUNTER → 2019-06-09 | Outpatient (CLI) | payer MEDICARE, OTHER, SELFPAY ==
[2018-11-11 14:55] VITALS: BMI 22.2
[2019-05-19 13:09] VITALS: BMI 25.5
--- NOTE | 2019-06-09 08:52 | ECHOL_ITS ---
Reason For Study: CHF Procedure This was a limited 2D transthoracic echocardiogram. Kaiden Benitez notified of BP. Exam performed in department. Left Ventricle Normal LV size. Moderate concentric left ventricular hypertrophy. The estimated ejection fraction is 45 %. There is mild to moderate global hypokinesis of the left ventricle. Right Ventricle Normal RV size. Normal systolic function. Atria The left atrium is mildly enlarged. Normal right atrium. Mitral Valve Bileaflet diffuse mitral valve thickening. Mild (1+) eccentric mitral valve insufficiency. Tricuspid Valve Normal tricuspid valve. Pulmonic Valve Normal pulmonic valve. Great Vessels Normal aortic root. The pulmonary artery is normal size. Normal inferior vena cava. Pericardium/Pleural No pericardial effusion. MMode/2D Measurements & Calculations LVIDd: 5.6 cm IVSd: 1.6 cm LAV(MOD-sp4): 75.1 ml LVIDs: 4.7 cm LVPWd: 1.2 cm FS: 17.5 % LVAd ap4: 36.7 cm2 SV(MOD-sp4): 58.4 ml SV(sp4-el): 64.0 ml EDV(MOD-sp4): 128.4 ml EDV(sp4-el): 135.1 ml LVAs ap4: 25.5 cm2 ESV(MOD-sp4): 70.0 ml ESV(sp4-el): 71.2 ml EF(MOD-sp4): 45.5 % EF(sp4-el): 47.3 % LA A4 area: 23.1 cm2 RA A4 area: 17.4 cm2 Doppler Measurements & Calculations Lat Peak E' Ryan: 6.3 cm/sec Med Peak E' Ryan: 5.6 cm/sec Interpretation Summary Normal LV size. Moderate concentric left ventricular hypertrophy. The estimated ejection fraction is 45 %. Bileaflet diffuse mitral valve thickening. Mild (1+) eccentric mitral valve insufficiency. Compared to previous study, the left ventricular systolic function has improved.. Ordering Physician: Kaiden Benitez Referring Physician: Samson Loco Chi Performed By: Jaciel Garner RCS
== END | disposition home or self-care (01) ==
PROVIDERS: Family Provider Family Medicine Geriatric Medicine; PCP Family Medicine Geriatric Medicine; Referring Provider Internal Medicine Cardiovascular Disease; Visit Provider Internal Medicine Cardiovascular Disease
DX: I25.10 Atherosclerotic heart disease of native coronary artery without angina pectoris (principal); I43 Cardiomyopathy in diseases classified elsewhere; Z95.5 Presence of coronary angioplasty implant and graft; I11.0 Hypertensive heart disease with heart failure; I50.9 Heart failure, unspecified
CPT/HCPCS: 93308

== ENCOUNTER → 2019-06-23 | Outpatient (CLI) | payer MEDICARE, OTHER, SELFPAY ==
[2018-11-11 14:55] VITALS: BMI 22.2
[2019-05-19 13:09] VITALS: BMI 25.5
[2019-06-23 12:49] LABS: Absolute Lymphocyte Count 1.96 X10^3/uL (0.83-4.51); Absolute Neutrophil Count 5.2 X10^3/uL (2.0-7.7); Basophil# 0.06 X10^3/uL; Basophil% 0.7 % (0-1); Eosinophil# 0.09 X10^3/uL; Eosinophils% 1.1 % (0-5); Hematocrit 42.5 % (40-54); Hemoglobin 13.2 g/dL (13.0-16.5); Lymphocyte # 1.96 X10^3/ul (4.0); Lymphocyte % 24.4 % (19-41); Mean Corp Hgb Conc 31.1 g/dL (32-36); Mean Corpuscular Hgb 28.9 pg (27.0-32.0); Mean Platelet Vol. 10.3 fl (6.2-12.0); Monocyte# 0.65 X10^3/uL; Monocyte% 8.1 % (0-10); NRBC Flagged by Analyzer 0 % (0-5); Neutrophil # 5.23 X10^3/uL (2.7-7.7); Neutrophil % 65.1 % (47-70); Platelet Count 241 K/mm3 (150-450); RBC Distribution Width CV 14.5 % (11.6-14.6); Red Blood Count 4.57 M/mm3 (4.6-6.2)
[2019-06-23 13:03] LABS: Vitamin D,25 Hydroxy 25.5 ng/mL (29.95-100.01)
[2019-06-23 13:15] LABS: ALB/GLOB Ratio 0.8 RATIO (0.9-2.4); AST(SGOT) 34 U/L (15-37); Alanine Aminotransfer ALT/SGPT 46 U/L (16-61); Albumin, Serum 3.6 g/dL (3.2-5.0); Alkaline Phosphatase 86 U/L (45-117); Anion Gap 7 (5-15); BUN 18 mg/dL (7-18); BUN/Creat Ratio 13.4 RATIO (10-20); Calcium,Total 8.9 mg/dL (8.5-10.1); Chloride 109 mmol/L (98-107); Creatinine, Serum 1.34 mg/dL (0.70-1.30); EST Glomerular Filtration Rate 57 mL/min (>60); Est Glom Filt Rate - Afr Amer 68 mL/min (>60); Globulin 4.3 g/dL (2.2-4.2); Glucose 97 mg/dL (74-106); Potassium 5.1 mmol/L (3.5-5.1); Protein, Total 7.9 g/dL (6.4-8.2); Sodium Level 142 mmol/L (136-145); Thyroid Stim Hormone (TSH) 2.07 uIU/mL (0.358-3.74)
== END | disposition home or self-care (01) ==
LOC: POLAB3 09:50
PROVIDERS: Family Provider Family Medicine Geriatric Medicine; PCP Family Medicine Geriatric Medicine; Visit Provider Family Medicine Geriatric Medicine
DX: E55.9 Vitamin D deficiency, unspecified (principal); I10 Essential (primary) hypertension
CPT/HCPCS: 36415; 80053; 82306; 84443; 85025

== ENCOUNTER → 2019-07-07 08:18 | Outpatient (CLI) | payer MEDICARE, OTHER, SELFPAY ==
[2018-11-11 14:55] VITALS: BMI 22.2
[2019-06-23 14:58] VITALS: BMI 25.9
[2019-07-07 10:25] LABS: Anion Gap 9 (5-15); BUN 24 mg/dL (7-18); Calcium,Total 8.5 mg/dL (8.5-10.1); Chloride 108 mmol/L (98-107); Creatinine, Serum 1.41 mg/dL (0.70-1.30); EST Glomerular Filtration Rate 53 mL/min (>60); Est Glom Filt Rate - Afr Amer 64 mL/min (>60); Glucose 79 mg/dL (74-106); Sodium Level 141 mmol/L (136-145)
== END ==
PROVIDERS: Family Provider Family Medicine Geriatric Medicine; PCP Family Medicine Geriatric Medicine; Referring Provider Physician Assistant Medical; Visit Provider Physician Assistant Medical
DX: I10 Essential (primary) hypertension (principal); I43 Cardiomyopathy in diseases classified elsewhere; I48.19 Other persistent atrial fibrillation
CPT/HCPCS: 36415; 80048

== ENCOUNTER → 2019-10-06 | Outpatient (CLI) | payer MEDICARE, OTHER, SELFPAY ==
[2018-11-11 14:55] VITALS: BMI 22.2
[2019-06-23 14:58] VITALS: BMI 25.9
[2019-10-06 13:03] LABS: Absolute Lymphocyte Count 1.88 X10^3/uL (0.83-4.51); Absolute Neutrophil Count 5.8 X10^3/uL (2.0-7.7); Basophil# 0.04 X10^3/uL; Basophil% 0.5 % (0-1); Eosinophil# 0.12 X10^3/uL; Eosinophils% 1.4 % (0-5); Hematocrit 39.8 % (40-54); Hemoglobin 12.5 g/dL (13.0-16.5); Lymphocyte # 1.88 X10^3/ul (4.0); Lymphocyte % 22.6 % (19-41); Mean Corp Hgb Conc 31.4 g/dL (32-36); Mean Corpuscular Hgb 28.3 pg (27.0-32.0); Mean Corpuscular Volume 90.2 fL (80-94); Mean Platelet Vol. 9.9 fl (6.2-12.0); Monocyte# 0.43 X10^3/uL; Monocyte% 5.2 % (0-10); NRBC Flagged by Analyzer 0 % (0-5); Neutrophil # 5.79 X10^3/uL (2.7-7.7); Neutrophil % 69.5 % (47-70); Platelet Count 234 K/mm3 (150-450); RBC Distribution Width CV 14.6 % (11.6-14.6); RBC Distribution Width SD 48.8 fl (35.1-43.9); Red Blood Count 4.41 M/mm3 (4.6-6.2); White Blood Count 8.3 K/mm3 (4.4-11.0)
[2019-10-06 13:17] LABS: Vitamin D,25 Hydroxy 15.9 ng/mL
[2019-10-06 13:28] LABS: ALB/GLOB Ratio 0.8 RATIO (0.9-2.4); AST(SGOT) 21 U/L (15-37); Alanine Aminotransfer ALT/SGPT 30 U/L (16-61); Albumin, Serum 3.5 g/dL (3.2-5.0); Alkaline Phosphatase 78 U/L (45-117); Anion Gap 8 (5-15); BUN 20 mg/dL (7-18); BUN/Creat Ratio 13.5 RATIO (10-20); Calcium,Total 8.6 mg/dL (8.5-10.1); Chloride 110 mmol/L (98-107); Creatinine, Serum 1.48 mg/dL (0.70-1.30); EST Glomerular Filtration Rate 50 mL/min (>60); Est Glom Filt Rate - Afr Amer 61 mL/min (>60); Globulin 4.4 g/dL (2.2-4.2); Glucose 124 mg/dL (74-106); PSA,Total - Annual Screen 3.19 ng/mL (0.00-4.00); Potassium 4.1 mmol/L (3.5-5.1); Protein, Total 7.9 g/dL (6.4-8.2); Sodium Level 141 mmol/L (136-145)
== END | disposition home or self-care (01) ==
LOC: POLAB3 09:27
PROVIDERS: PCP Family Medicine Geriatric Medicine; Referring Provider Family Medicine Geriatric Medicine; Visit Provider Family Medicine Geriatric Medicine
DX: E55.9 Vitamin D deficiency, unspecified (principal); I10 Essential (primary) hypertension; Z12.5 Encounter for screening for malignant neoplasm of prostate
CPT/HCPCS: 36415; 80053; 82306; 84153; 84443; 85025; G0103

== ENCOUNTER → 2020-03-29 | Outpatient (CLI) | payer MEDICARE, OTHER, SELFPAY ==
[2018-11-11 14:55] VITALS: BMI 22.2
[2019-12-22 10:06] VITALS: BMI 26.8
[2020-03-29 11:03] LABS: Absolute Lymphocyte Count 2.05 X10^3/uL (0.83-4.51); Basophil# 0.04 X10^3/uL; Basophil% 0.5 % (0-1); Eosinophil# 0.16 X10^3/uL; Hematocrit 40.4 % (40-54); Hemoglobin 12.8 g/dL (13.0-16.5); Lymphocyte # 2.05 X10^3/ul (4.0); Mean Corp Hgb Conc 31.7 g/dL (32-36); Mean Corpuscular Hgb 28.9 pg (27.0-32.0); Mean Corpuscular Volume 91.2 fL (80-94); Mean Platelet Vol. 10.3 fl (6.2-12.0); Monocyte# 0.62 X10^3/uL; Monocyte% 7.9 % (0-10); NRBC Flagged by Analyzer 0 % (0-5); Neutrophil # 4.98 X10^3/uL (2.7-7.7); Neutrophil % 63.1 % (47-70); Platelet Count 214 K/mm3 (150-450); RBC Distribution Width SD 47.5 fl (35.1-43.9); Red Blood Count 4.43 M/mm3 (4.6-6.2); White Blood Count 7.9 K/mm3 (4.4-11.0)
[2020-03-29 11:20] LABS: Vitamin D,25 Hydroxy 39.9 ng/mL
[2020-03-29 11:29] LABS: AST(SGOT) 30 U/L (15-37); Alanine Aminotransfer ALT/SGPT 41 U/L (16-61); Albumin, Serum 3.9 g/dL (3.2-5.0); Alkaline Phosphatase 87 U/L (45-117); Anion Gap 6 (5-15); BUN 24 mg/dL (7-18); BUN/Creat Ratio 15.7 RATIO (10-20); Calcium,Total 8.4 mg/dL (8.5-10.1); Chloride 111 mmol/L (98-107); Creatinine, Serum 1.53 mg/dL (0.70-1.30); EST Glomerular Filtration Rate 48 mL/min (>60); Est Glom Filt Rate - Afr Amer 59 mL/min (>60); Globulin 3.8 g/dL (2.2-4.2); Glucose 106 mg/dL (74-106); Protein, Total 7.7 g/dL (6.4-8.2); Sodium Level 140 mmol/L (136-145); Thyroid Stim Hormone (TSH) 1.82 uIU/mL (0.358-3.74)
== END | disposition home or self-care (01) ==
LOC: POLAB3 10:14
PROVIDERS: PCP Family Medicine Geriatric Medicine; Visit Provider Family Medicine Geriatric Medicine
DX: E55.9 Vitamin D deficiency, unspecified (principal); I10 Essential (primary) hypertension
CPT/HCPCS: 36415; 80053; 82306; 84443; 85025

== ENCOUNTER → 2020-10-11 09:27 | Outpatient (CLI) | payer MEDICARE, SELFPAY ==
[2018-11-11 14:55] VITALS: BMI 22.2
[2020-07-23 10:29] VITALS: BMI 27.9
[2020-10-11 12:24] LABS: Absolute Lymphocyte Count 2.36 X10^3/uL (0.83-4.51); Absolute Neutrophil Count 4.8 X10^3/uL (2.0-7.7); Basophil# 0.05 X10^3/uL; Basophil% 0.6 % (0-1); Eosinophil# 0.22 X10^3/uL; Eosinophils% 2.7 % (0-5); Hematocrit 38.1 % (40-54); Hemoglobin 12.7 g/dL (13.0-16.5); Lymphocyte # 2.36 X10^3/ul (4.0); Lymphocyte % 29.1 % (19-41); Mean Corp Hgb Conc 33.3 g/dL (32-36); Mean Corpuscular Hgb 31.4 pg (27.0-32.0); Mean Corpuscular Volume 94.1 fL (80-94); Mean Platelet Vol. 10.2 fl (6.2-12.0); Monocyte# 0.62 X10^3/uL; Monocyte% 7.7 % (0-10); NRBC Flagged by Analyzer 0 % (0-5); Neutrophil # 4.79 X10^3/uL (2.7-7.7); Neutrophil % 59.2 % (47-70); Platelet Count 185 K/mm3 (150-450); RBC Distribution Width CV 15.8 % (11.6-14.6); RBC Distribution Width SD 50.6 fl (35.1-43.9); Red Blood Count 4.05 M/mm3 (4.6-6.2); White Blood Count 8.1 K/mm3 (4.4-11.0)
[2020-10-11 12:41] LABS: Vitamin D,25 Hydroxy 13.8 ng/mL
[2020-10-11 12:51] LABS: ALB/GLOB Ratio 0.9 RATIO (0.9-2.4); AST(SGOT) 24 U/L (15-37); Alanine Aminotransfer ALT/SGPT 46 U/L (16-61); Albumin, Serum 3.8 g/dL (3.2-5.0); Alkaline Phosphatase 90 U/L (45-117); Anion Gap 7 (5-15); BUN 20 mg/dL (7-18); BUN/Creat Ratio 14.1 RATIO (10-20); Calcium,Total 8.6 mg/dL (8.5-10.1); Chloride 111 mmol/L (98-107); Creatinine, Serum 1.42 mg/dL (0.70-1.30); EST Glomerular Filtration Rate 53 mL/min (>60); Est Glom Filt Rate - Afr Amer 64 mL/min (>60); Globulin 4.2 g/dL (2.2-4.2); Glucose 97 mg/dL (74-106); PSA,Total - Annual Screen 5.09 ng/mL (0.00-4.00); Potassium 4.1 mmol/L (3.5-5.1); Sodium Level 142 mmol/L (136-145); Thyroid Stim Hormone (TSH) 1.78 uIU/mL (0.358-3.74)
== END ==
PROVIDERS: PCP Family Medicine Geriatric Medicine; Visit Provider Family Medicine Geriatric Medicine
DX: E55.9 Vitamin D deficiency, unspecified (principal); I10 Essential (primary) hypertension; Z12.5 Encounter for screening for malignant neoplasm of prostate
CPT/HCPCS: 36415; 80053; 82306; 84153; 84443; 85025; G0103

== ENCOUNTER → 2020-11-25 08:34 | Outpatient (CLI) | payer MEDICARE, SELFPAY ==
[2018-11-11 14:55] VITALS: BMI 22.2
[2020-11-22 09:50] VITALS: BMI 29.0
[2020-11-25 09:58] LABS: Hematocrit 39.9 % (40-54); Hemoglobin 12.7 g/dL (13.0-16.5); Mean Corp Hgb Conc 31.8 g/dL (32-36); Mean Corpuscular Hgb 29.1 pg (27.0-32.0); Mean Corpuscular Volume 91.3 fL (80-94); Mean Platelet Vol. 10.4 fl (6.2-12.0); Platelet Count 192 K/mm3 (150-450); RBC Distribution Width CV 14.3 % (11.6-14.6); RBC Distribution Width SD 48.1 fl (35.1-43.9); Red Blood Count 4.37 M/mm3 (4.6-6.2); White Blood Count 6.1 K/mm3 (4.4-11.0)
[2020-11-25 10:16] LABS: Anion Gap 9 (5-15); BUN 17 mg/dL (7-18); BUN/Creat Ratio 11.8 RATIO (10-20); Calcium,Total 8.6 mg/dL (8.5-10.1); Chloride 112 mmol/L (98-107); Creatinine, Serum 1.44 mg/dL (0.70-1.30); EST Glomerular Filtration Rate 52 mL/min (>60); Est Glom Filt Rate - Afr Amer 63 mL/min (>60); Glucose 115 mg/dL (74-106); Potassium 3.9 mmol/L (3.5-5.1); Sodium Level 142 mmol/L (136-145)
== END ==
PROVIDERS: PCP Family Medicine Geriatric Medicine; Referring Provider Urology; Visit Provider Urology
DX: Z01.812 Encounter for preprocedural laboratory examination (principal)
CPT/HCPCS: 36415; 80048; 85027

== ENCOUNTER → 2020-12-05 12:21 | Outpatient (CLI) | payer MEDICARE, SELFPAY ==
[2018-11-11 14:55] VITALS: BMI 22.2
[2020-11-22 09:50] VITALS: BMI 29.0
--- NOTE | 2020-12-05 12:23 | ECHOD_ITS ---
Reason For Study: CHF Procedure This was a 2D Doppler, Color Flow transthoracic echocardiogram. Exam performed in department. Left Ventricle Normal LV size. Left ventricular systolic function is normal. The estimated ejection fraction is 55 %. Stage 2 diastolic dysfunction. No regional wall motion abnormalities noted. Right Ventricle Normal RV size. Normal systolic function. Atria The left atrium is mildly enlarged. Normal right atrium. Mitral Valve Normal mitral valve. Tricuspid Valve Normal tricuspid valve. Aortic Valve Normal aortic valve. Trisinus/trileaflet aortic valve. Pulmonic Valve Normal pulmonic valve. Great Vessels Normal aortic root. The pulmonary artery is normal size. Normal inferior vena cava. Pericardium/Pleural No pericardial effusion. MMode/2D Measurements & Calculations LVIDd: 5.2 cm IVSd: 1.1 cm Ao root diam: 3.1 cm LVIDs: 3.7 cm LVPWd: 1.1 cm RVDd: 3.2 cm FS: 28.3 % LAV(MOD-bp): 70.4 ml LVAd ap4: 32.7 cm2 LVAd ap2: 35.3 cm2 LAV(MOD-bp) Indexed: 33.6 ml/m2 LVLd ap4: 9.2 cm LVLd ap2: 8.7 cm LAV(MOD-sp2): 58.5 ml EDV(MOD-sp4): 98.3 ml EDV(MOD-sp2): 121.9 ml LAV(MOD-sp4): 78.0 ml EDV(sp4-el): 98.8 ml EDV(sp2-el): 120.7 ml LVAs ap4: 19.9 cm2 LVAs ap2: 22.7 cm2 LVLs ap4: 8.2 cm LVLs ap2: 8.2 cm ESV(MOD-sp4): 40.3 ml ESV(MOD-sp2): 54.0 ml ESV(sp4-el): 41.0 ml ESV(sp2-el): 53.5 ml EF(MOD-sp4): 59.0 % EF(MOD-sp2): 55.7 % EF(sp4-el): 58.5 % SV(MOD-sp4): 57.9 ml SV(MOD-sp2): 67.9 ml SV(sp4-el): 57.8 ml LA dimension(2D): 3.6 cm LA A4 area: 23.4 cm2 RA A4 area: 14.8 cm2 Doppler Measurements & Calculations MV E max ryan: 95.2 cm/sec Lat Peak E' Ryan: 8.5 cm/sec Med Peak E' Ryan: 5.7 cm/sec MV A max ryan: 83.1 cm/sec E/E' lat: 11.2 E/E' med: 16.7 MV E/A: 1.1 Ao V2 max: 161.4 cm/sec LV V1 max: 126.6 cm/sec PA V2 max: 145.2 cm/sec Ao max P.4 mmHg LV V1 max P.4 mmHg ECHO/Echo Complete Interpretation Summary Normal LV size. Left ventricular systolic function is normal. The estimated ejection fraction is 55 %. The left atrium is mildly enlarged. Stage 2 diastolic dysfunction. Compared to previous study, the left ventricular systolic function has improved .. Ordering Physician: Nicol Ramirez/Jose L Viera Referring Physician: Jeramie Montes Performed By: Franchesca Jimenez, TRAVIS
--- NOTE | 2020-12-05 12:23 | CDU_ITS ---
Reason For Study: Carotid bruit Rt. Velocities/BP Lt. Velocities/BP Prox CCA 91.7/14.7 cm/sec. Prox CCA 126.6/24.3 cm/sec. Mid CCA 122.9/24.3 cm/sec. Mid CCA 110.1/24.3 cm/sec. Dist CCA 117.4/20.6 cm/sec. Dist CCA 119.3/18.8 cm/sec. Prox ICA 124.7/26.1 cm/sec. Prox ICA 95.5/22.5 cm/sec. Mid ICA 132.1/33.4 cm/sec. Mid ICA 141.1/27 cm/sec. Dist ICA 148.5/29.8 cm/sec. Dist ICA 119.3/31.6 cm/sec. Rt. ICA/CCA = 1.26. Lt. ICA/CCA = 1.18. Prox ECA 101/7.9 cm/sec. Prox ECA 135.7/13.5 cm/sec. Rt. Vert. 46.6 cm/sec. Lt. Vert. 59.7/12.4 cm/sec. Right Extracranial There is homogeneous, smooth atherosclerotic plaque noted in the right common carotid artery. There is heterogeneous, irregular atherosclerotic plaque noted in the right internal carotid artery. There is intimal thickening but no significant atherosclerotic plaque noted in the right external carotid artery. Antegrade flow is noted in the right vertebral artery. Left Extracranial There is homogeneous, smooth atherosclerotic plaque noted in the left common carotid artery. There is heterogeneous, irregular atherosclerotic plaque noted in the left internal carotid artery. There is homogeneous, smooth atherosclerotic plaque noted in the left external carotid artery. Antegrade flow is noted in the left vertebral artery. Procedure Carotid Duplex [id number]. This is a Carotid Duplex examination using B-mode, color flow and specral Doppler. Exam performed in department. VL/Carotid Duplex Ultrasound Interpretation Summary Smooth plaque is noted throughout the right common carotid artery with irregula r heterogenous plaque at the proximal right internal carotid artery 50 to 69% stenosis right internal carotid artery Less than 50% stenosis right external carotid artery Irregular calcific plaque with shadowing at the proximal left internal carotid artery with 50 to 69% stenosis Less than 50% stenosis left external carotid artery Patent and antegrade vertebral arteries bilaterally Ordering Physician: Nicol Ramirez Referring Physician: Samson Loco Chi Performed By: Rayen Eldridge RVT
--- NOTE | 2020-12-05 12:23 | EKG12_ITS ---
Test Reason : PREOP Blood Pressure : / mmHG Vent. Rate : 070 BPM Atrial Rate : 070 BPM P-R Int : 174 ms QRS Dur : 148 ms QT Int : 420 ms P-R-T Axes : 034 -62 050 degrees QTc Int : 453 ms Normal sinus rhythm Right bundle branch block Left anterior fascicular block Bifascicular block Abnormal ECG Confirmed by BIJAN EWING, MANUEL ([id number]), assignment editor KAYLI JONES ([id number]) on 12/06/2020 10:09:00 AM Referred By: Jeramie Montes Confirmed By:MANUEL THAKKAR MD
== END ==
PROVIDERS: PCP Family Medicine Geriatric Medicine; Referring Provider Urology; Visit Provider Urology
DX: Z01.812 Encounter for preprocedural laboratory examination (principal); Z03.818 Encounter for observation for suspected exposure to other biological agents ruled out
CPT/HCPCS: 93005; 93306; 93880; C9803

== ENCOUNTER → 2020-12-05 13:45 | Outpatient (CLI) | payer MEDICARE, SELFPAY ==
[2018-11-11 14:55] VITALS: BMI 22.2
[2020-11-22 09:50] VITALS: BMI 29.0
== END ==
PROVIDERS: PCP Family Medicine Geriatric Medicine; Referring Provider Urology; Visit Provider Urology
DX: Z01.812 Encounter for preprocedural laboratory examination (principal); I25.10 Atherosclerotic heart disease of native coronary artery without angina pectoris; R09.89 Other specified symptoms and signs involving the circulatory and respiratory systems; Z03.818 Encounter for observation for suspected exposure to other biological agents ruled out
CPT/HCPCS: 87635; 93005; 93306; 93880; C9803; U0002

== ENCOUNTER 2021-02-12 05:53 | Day surgery (SDC) | payer MEDICARE, SELFPAY ==
[2018-11-11 14:55] VITALS: BMI 22.2
[2020-11-22 09:50] VITALS: BMI 29.0
[2021-02-07 08:26] LABS: Hematocrit 36.4 % (40-54); Hemoglobin 11.4 g/dL (13.0-16.5); Mean Corp Hgb Conc 31.3 g/dL (32-36); Mean Corpuscular Hgb 28.6 pg (27.0-32.0); Mean Corpuscular Volume 91.2 fL (80-94); Mean Platelet Vol. 9.7 fl (6.2-12.0); Platelet Count 232 K/mm3 (150-450); RBC Distribution Width CV 14.6 % (11.6-14.6); RBC Distribution Width SD 49.3 fl (35.1-43.9); Red Blood Count 3.99 M/mm3 (4.6-6.2); White Blood Count 8.6 K/mm3 (4.4-11.0)
[2021-02-07 08:38] LABS: International Normalized Ratio 1.1; Prothrombin Time (Protime)PT. 13.9 SECONDS (11.7-14.9)
[2021-02-07 08:57] LABS: AST(SGOT) 23 U/L (15-37); Alanine Aminotransfer ALT/SGPT 29 U/L (16-61); Albumin, Serum 3.3 g/dL (3.2-5.0); Alkaline Phosphatase 90 U/L (45-117); Anion Gap 7 (5-15); BUN 17 mg/dL (7-18); BUN/Creat Ratio 13.3 RATIO (10-20); Bilirubin, Direct 0.14 mg/dL (0.00-0.30); Calcium,Total 8.2 mg/dL (8.5-10.1); Chloride 112 mmol/L (98-107); Creatinine, Serum 1.28 mg/dL (0.70-1.30); EST Glomerular Filtration Rate 59 mL/min (>60); Est Glom Filt Rate - Afr Amer 72 mL/min (>60); Globulin 3.9 g/dL (2.2-4.2); Glucose 114 mg/dL (74-106); Potassium 3.9 mmol/L (3.5-5.1); Protein, Total 7.2 g/dL (6.4-8.2); Sodium Level 141 mmol/L (136-145)
[2021-02-12] VITALS (12 sets, daily range): BP systolic 116–178; BP diastolic 53–76; PULSE 47–72; RESP 16–18; TEMP 36–36.9; O2SAT 92–99; BMI 27.5
[2021-02-12] MEDS: Lactated Ringers 1,000 ML 100 ML IV ×2 (06:58→09:30)
[2021-02-12] MEDS: Lactated Ringers 1,000 ML 15 ML IV (07:00)
[2021-02-12] MEDS: Cefazolin 2 GM in 0.9% Normal Saline 100 ML IV (07:30)
--- NOTE | 2021-02-12 07:30 | PROST_PTH ---
PATIENT: DELBERT AL [place] [facility] [id number] AGE/SX: 70/M ROOM: RE02/12/[address]: Dr. Jeramie Montes MD : 1950 BED: DIS: 02/13/2021 SPEC #: [id number] RECD: 02/12/21 14:13 STATUS: CHANTAL REChamp #: [id number] HODAN: 02/12/21 07:[address]: Jeramie Montes DEPT: SURGICAL PATHOLOGY RECD BY: Gertrude Chakraborty ENTERED: 02/13/21 07:40 SP TYPE: PROSTATE OTHR DR: Dr. Samson Loco MD Tissues: A - Lymph node, NOS B - Prostate, NOS Procedures: Surgery Specimen Level V Surgery Specimen Level HEADER OPERATION: Lap robotic radical prostatectomy, bilateral nerve sparing PRE-OP DIAGNOSIS: Prostate cancer TISSUE SUBMITTED: A ? Right lymph node, B - Prostate MICROSCOPIC DIAGNOSIS A. Right pelvic lymph nodes, biopsy: Mature adipose tissue. See comment. B. Prostate, radical prostatectomy: Adenocarcinoma. See cancer checklist below. AM:amada 02/14/2021 COMMENT A. Lymph node tissue is not present. B. PROSTATE CANCER (RADICAL) SUMMARY: Procedure: Radical Prostatectomy Prostate Size: Weight: 56 gm Size: 5.5 x 3.8 x 3.5 cm Histologic type: Adenocarcinoma Histologic grade: 6 (3+3) Percent of Pattern 4: 0 Percent of Pattern 5: 0 Intraductal Carcinoma: Not identified Tumor Quantitation: 12 x 12 x 5 mm Extraprostatic Extension: Not identified Urinary Bladder Neck Invasion: Not identified Seminal Vesicle Invasion: Not identified Lymphvascular Invasion: Not identified Perineural Invasion: Present, focal Margins: Free of carcinoma Regional Lymph Nodes: Not present Treatment Effect: Unknown Additional Pathologic Findings: Chronic prostatitis with focal acute prostatitis. PATHOLOGIC STAGE: pT2 Nx Mx The above summary is in compliance with [employer] (CAP) Cancer Protocols Checklist and [place] [employer] Committee on Cancer (AJCC), Staging Manual, 8th Ed. MICROSCOPIC DESCRIPTION Slides are reviewed. GROSS DESCRIPTION A - Received in fixative is one container labeled with the patient's name and designated right lymph node. The specimen consists of multiple irregular fragments of yellow fatty tissue that in aggregate measure 2.5 x 2 x 0.2 cm. The specimen is totally submitted in one cassette. B - Received in fixative is one container labeled with the patient's name and designated prostate. The specimen consists of a radical prostatectomy specimen consisting of prostate and bilateral seminal vesicles. The specimen weighs 56 gm. The prostate measures 5.5 cm transversely, 3.5 cm anterior-posteriorly and 3.8 cm craniocaudally. The specimen is differentially inked as follows: anterior - red, posterior surface - black, right half - blue, left half - green. The specimen is serially sectioned from a cranial to caudal portion at a caudal fashion in 3-4 mm sections. No gross mass lesion is identified. Racing Manager sections are submitted as follows: 1 - distal urethral margin, 2 - bladder shave margin, 3??seminal vesicles, 4 - most basal section of prostate, 5-7 - apex of prostate, 8-13 - mid portion of prostate, 14-19 - basal portion of prostate. / AM:amada 02/13/21 TC:0 CPT: 97951, 88882
--- NOTE | 2021-02-12 07:33 | PCM.HP.STD ---
HPI - General HPI Narrative DELBERT AL, is a 70 M who presents for treatment of prostate cancer with a radical prostatectomy he has Rl 7 prostate cancer and has elected to undergo radical prostatectomy for curative intent we are going to do bilateral nerve sparing but the patient does have a history of erectile dysfunction. [facility] Medical History (Updated 02/12/21 @ 07:[address] Jeramie Montes MD) Atherosclerotic heart disease of [place] coronary artery without angina pectoris Basal cell carcinoma Cardiology follow-up encounter Cardiomyopathy in diseases classified elsewhere COPD (chronic obstructive pulmonary disease) Easy bruising Emphysema/COPD Essential hypertension Excessive bleeding Former smoker High cholesterol History of echocardiogram (~12/05/20) History of stress test (~11/02/18) Hyperlipidemia Ischemic cardiomyopathy Leg cramps Lung nodule Nicotine dependence Paroxysmal atrial fibrillation Persistent atrial fibrillation Persistent atrial fibrillation with rapid ventricular response Shortness of breath on exertion Wears dentures Wears glasses Home Medications multivitamin 1 tab PO QAM 05/19/19 [History Last Taken Unknown] apixaban 5 mg tablet 5 mg PO BID 30 Days #60 tab 04/26/20 [Rx Last Taken 02/08/21] atorvastatin 40 mg tablet 40 mg PO QHS 90 Days #90 tab 11/22/20 [Rx Last Taken Unknown] diltiazem HCl 180 mg capsule,extended release 24 hr 180 mg PO DAILY #90 cap 11/22/20 [Rx Last Taken 02/12/21] lisinopril 20 mg tablet 20 mg PO DAILY #90 tablet 11/22/20 [Rx Last Taken 02/12/21] metoprolol tartrate 50 mg tablet 50 mg PO BID #180 tab 11/22/20 [Rx Last Taken 02/12/21] aspirin 81 mg tablet,delayed release 81 mg PO DAILY #1 tab 01/01/21 [Rx Last Taken 02/06/21] Allergy/AdvReac Type Severity Reaction Status Date / Time ciprofloxacin Allergy Other Verified 02/12/21 06:14 doxycycline AdvReac diarrhea Verified 02/12/21 06:14 Family History Mother , Age 73 Asthma Diabetes Kidney disease Father , age 63 Cancer stomach and lung Sister CHF (congestive heart failure) Sister Colon cancer Surgical History (Updated 02/06/21 @ 08:29 by Lissette Urias) History of cardiac catheterization (~11/11/18) History of cardioversion (01/23/19) History of coronary artery stent placement (11/11/18) History of hernia surgery History of resection of small bowel Hx of colectomy Social History (Updated 11/22/20 @ 15:56 by Nicol GARCIA, PA) Smoking Status: Former smoker how long ago did patient quit smokin months ago alcohol intake: never substance use type: does not use caffeine: Yes Type: coffee Number of servings: 3 ROS Constitutional Constitutional: Denies chills, fever(s) or malaise Eyes Eyes: Denies blurry vision or change in vision ENT HEENT: Reports none Cardiovascular Cardiovascular: Denies chest pain or palpitations Respiratory/Chest Respiratory/Chest: Denies cough or shortness of breath with exertion Gastrointestinal Gastrointestinal: Denies abdominal pain, constipation or diarrhea Musculoskeletal Musculoskeletal: Denies back pain, joint stiffness or joint swelling Integumentary Integumentary: Denies dry skin, jaundice, lesions or rash Neurologic Neurologic: Denies confusion, syncope or weakness Psychiatric Psychiatric: Reports none; Denies anxiety or depression Endocrine Endocrinology: Denies excessive sweating, fatigue or flushing Hematologic/Lymphatic Hematologic/Lymphatic: Denies anemia, easy bleeding or easy bruising Vital Signs Vital Signs Vital Signs: 02/12/21 06:21 Temperature 97.3 F L Temperature Source Temporal Pulse Rate 53 L Respiratory Rate 16 Respiratory Pattern Normal Blood Pressure 178/76 H Blood Pressure Mean 110 Blood Pressure Source Monitor Blood Pressure Position Semi-Fowlers Blood Pressure Location Right Arm Pulse Ox 99 Oxygen Delivery Method Room Air Weight Weight: 87 kg Body Mass Index (BMI) 27.5 Physical Exam Const alert and oriented x3 General Appearance: cooperative HEENT normocephalic, head/scalp atraumatic, EAC's normal and TM's normal bilaterally Eyes PERRL and EOMs intact bilaterally Pupil: sluggish Neck no lymphadenopathy, supple and no JVD General: trachea midline Lymph Lymphatic: no lymphadenopathy noted, lymphedema and lymphadenopathy Resp normal respiratory effort, normal air movement and clear to auscultation bilaterally Cardio regular rate, regular rhythm and peripheral pulses 2+ throughout GI soft to palpation, non-tender and non-distended Extremity normal capillary refill and no clubbing, cyanosis or edema General Extremity: no tenderness to palpation of joints or extremities Skin no rashes or lesions noted General Skin Exam: turgor normal Lesions: no lesions Rashes: no rashes Neuro CN's II-XII intact bilaterally Speech: speech normal Motor Exam: strength 5/5 throughout; Negative for general weakness Psych thought process normal, cooperative and affect normal Appearance: appropriate Results Lab / Micro Data Result Diagrams: 02/07/21 08:00 02/07/21 08:00 Assessment & Plan Assessment/Plan (1) Prostate cancer: PLAN: Plan to proceed with a radical robotic prostatectomy.
--- NOTE | 2021-02-12 07:41 | PCM.DC ---
Discharge Instructions Diet Discharge Diet: No restrictions Activity Discharge Activity: Return to Normal Activity and May Not Drive (while taking narcotic pain medications.) Dressing / Incision Call your doctor if you observe: Fever of 101 or Higher Additional Dressing/Incision Instructions:: Home with garces to leg bag. Follow Up Care Please Follow Up With: Jeramie Montes MD When: Call [phone] for an appointment Test Results: Test results from this visit will be discussed in further detail at your follow-up appointment, if applicable. Discharge Plan Admission Primary Reason for Your Visit: PROSTATE CANCER, RADICAL PROSTATECTOMY Attending Provider: Jeramie Montes Primary Care Provider: Samson Loco Chi Discharge Orders/Prescriptions Prescriptions: New cephalexin 500 mg capsule 500 mg PO BID Qty: 20 RF: 0 docusate sodium [Colace] 100 mg capsule 100 mg PO BID Qty: 20 RF: 0 oxycodone-acetaminophen 5-325 mg tablet 1 tab PO Q6H PRN (Reason: pain) 7 Days Qty: 14 RF: 0 Continued multivitamin Tablet 1 tab PO QAM RF: 0 metoprolol tartrate 50 mg tablet 50 mg PO BID Qty: 180 RF: 6 diltiazem HCl [Cardizem CD] 180 mg capsule,extended release 24hr 180 mg PO DAILY Qty: 90 RF: 3 atorvastatin 40 mg tablet 40 mg PO QHS 90 Days Qty: 90 RF: 3 lisinopril 20 mg tablet 20 mg PO DAILY Qty: 90 RF: 3 aspirin [Adult Aspirin Regimen] 81 mg tablet,delayed release (DR/EC) 81 mg PO DAILY Qty: 1 RF: 0 Held apixaban 5 mg tablet 5 mg PO BID 30 Days Qty: 60 RF: 11 Hold Instructions: Resume on 02/26/21. Referrals / Follow Up: Jeramie Montes MD [STAFF PHYSICIAN] - Samson oLco Chi, MD [Primary Care Provider] - Disposition Disposition (needs filled in before D/C Order can be placed): Home, Self Care
[2021-02-12] MEDS: Bupivacaine Mpf 0.5% 30 ML VIAL (08:00)
--- NOTE | 2021-02-12 11:24 | OP.PCM_ITS ---
Report of Operation Date of Procedure: 02/12/21 Pre-Operative Diagnosis: Prostate cancer Post-Operative Diagnosis: Same Surgery/Procedure Performed:: Laparoscopic robotic assisted radical prostatectomy pelvic lymph node dissection. Description of Surgical Findings:: Patient presented to the hospital for treatment of his prostate cancer with radical prostatectomy. In the preoperative setting we discussed the options of management for his prostate cancer including active surveillance, radiation treatments, radioactive seeds, and radical robotic prostatectomy. We discussed the side effects of surgery including the potential to lose erections. We discussed the potential to have bladder control problems with stress incontinence which can be temporary or permanent. We discussed the risk of the surgery including the risk of general anesthetic, risk of bleeding, risk of infection, and risk of formation of hernia either incisional hernia or inguinal hernia. After long discussion with the patient the preoperative setting and also reviewed this in the preop area patient signed the consent form and we proceeded with a radical prostatectomy. Patient was taken back to the operating room he was identified, time out procedure was performed and he was placed supine on the table he underwent general anesthesia with intubation. The abdomen was shaved prepped and draped in usual sterile fashion as well as the penis and testicles. A 16 Brazilian catheter was placed into the bladder with clear return of urine. I then made an incision in the umbilicus and dissected down to the fascia advance a Veress needle into the peritoneal cavity and insufflated the peritoneal cavity with CO2 gas. I then placed a 12 mm trocar above the umbilicus. I then visualized the placement of the rest of the trochars, I placed a right arm robotic trocar, and air seal trocar, a suction port 5 mm trocar. And on the left side I placed 2 robotic arms. Once all the trochars were in placed the patient was put in steep Trendelenburg. And the robot was docked the arms were docked and then I placed the 0 degree camera through the robotic arm and also used a 30 degree camera during certain parts of the case. I used scissors in the right arm, prograsp in the third arm, and a bipolar in the second arm. Initial dissection was to free the sigmoid colon off the lateral wall this was done by meticulously dissecting off the peritoneum and the sigmoid colon off the left lateral wall. This then allowed the prograsp to retract the sigmoid colon out of the pelvis. I then went below the bladder and identified the vas deferens incised the peritoneum over the vas deferens and traced the vas deferens below the bladder to the prostate and identified the right and left vasa deferens. Below behind the vas deferens then the seminal vesicles were identified. I then dissected the seminal vesicle free using pinpoint electrocautery and then we identified the other seminal vesicle and then dissected this using pinpoint electrocautery I then elevated the vas deferens and several vesicles off the prostate and was able to sweep the Denonvilliers' fascia off the prostate posteriorly all the way up to the apex of the prostate. Working laterally I made sure I went as lateral as possible to sweep the Denonilliers' fascia off the posterior aspect of the prostate and worked my way back, I then transected the vas deferens and the left and right side the seminal vesicles were then dissected free. And then I pulled out of the pelvis. At this point the bladder was dropped creating the space of Retzius with the bladder on traction with the fourth arm. Using electrocautery I dissected in the anterior peritoneal fascia and then created the space of Retzius dissecting towards the prostate. The prostate was then cleaned of the fat over the prostate and the fourth arm was used to retract the bladder and place traction. I then identified the endopelvic fascia that was overlying the prostate on the right side I incised endopelvic fascia and wwept the levator muscles off the prostate all the way to the apex on the right side, I then worked my way anterior to the prostate then transected to the puboprostatic ligament and the underlying dorsal vein complex was not injured. I then went to the other side and identified the endopelvic fascia in the left side incised in a fashion the left side and swept the levator muscles off the prostate on the left side all the way up to the apex the puboprostatic ligament on the left side was then dissected and transected I then freed up the fascia overlying the dorsal vein complex. I then used the prograsp to encircled the dorsal vein complex with the prograsp and then switched over to the right and left needle mechanic welder truck driver and suture ligated the dorsal vein complex above the prograsp. The prograsp was then placed back in the bladder and put back on traction I then identified the junction between the bladder and the prostate and dissected down between the bladder and the prostate untilI came across the catheter we then dissected posteriorly to the bladder and prostate to free the prostate and the bladder off each other and the muscles between the bladder and the prostate was then cauterized to free up the bladder. I then went on top of the prostate and identified the endopelvic fascia on top of the prostate this was incised all the way to the apex and then we swept the endopelvic fascia off the prostate laterally and then identified the plane between endopelvic fascia and the prosthetic pseudocapsule and swept the fascia laterally until reaching the course of the neurovascular bundles and then released the neurovascular bundles off the prostate laterally all the way back in a retrograde fashion back to the junction of the pedicles then the prostate was placed on traction with th e fourth arm pulling the prostate laterally identified the pedicle to the prostate between the seminal vesicles and the and the neurovascular bundle and this was taken using sequential small hemolocks. After the pedicle was taken the I then dissected underneath the prostate sweeping the neurovascular bundle off the prostate we able to follow the nice smooth plane between the neurovascular bundle and the pseudocapsule all the way to the apex once this was identified we swept this up all the way up to the apex and there was perfect nerve sparing on the right side. Then went to the left side the prostate identified the endopelvic fascia over the left side of the prostate I incised the endopelvic fascia all the way to the apex and then swept this off laterally I then released the neurovascular bundles on the left side of the prostate sweeping him off the prostate laterally I then elevated the prostate up up with the prostate and traction identified the pedicle to the prostate on the left side and then the pedicles taken with sequential Hem-o-maida clips I then was able to dissected the neurovascular bundle off the left posterior aspect the prostate this was a perfect dissection all the way up on the left side following the pseudocapsule all the way up the left side until we reached the apex of the prostate. After the both the neurovascular bundles has been swept off the posterior to the prostate I then went above and transected the dorsal vein complex there was minimal to no bleeding but then dissected down to the urethra and circumfencial dissected around the urethra I then switched the right and left arm with the needle drivers and I suture-ligated the dorsal vein complex again just to ensure that there was no bleeding from the dorsal vein complex. I then transected through the urethra with scissors and the prostate was then freed and released off the prostate bed and put an Endo Catch bag. At this point the bladder neck was reconstructed and then an anastomosis was performed between the prostate and the bladder with a 3 oh V-Loc stitch in a running fashion starting from the bladder neck at the 6 o'clock position working to the 12 o'clock position with continuous stitches to complete a perfect anastomosis between the bladder and the prostate. I then placed a new catheter into the bladder, an 18 [place] tip catheter flushed the bladder and there was no leakage from the anastomosis I put 10 cc in the balloon and pulled it up pulled back gently. I then ensured that there was no bleeding from the dorsal vein complex no bleeding from the neurovascular bundles FloSeal was placed as necessary once hemostasis was ensured and adequate then I placed the bladder back in position in the pelvis the prostate was exchanged to the camera port I closed the air seal port with a 10 12 Krzysztof Aviles stitch. And the extracted the prostate through the umbilicus. The robot was undocked all the ports were removed under direct visualization then closed the extraction site with 0 Vicryl with a CT1 needle once the extraction site was closed. I then closed all the incision with subcuticular stitches with 4-0 Monocryl and then bandages were placed on the incisions catheter was flushed to make sure it was draining well there was no clots and it was crystal clear patient's anesthetic was reversed he was extubated and taken back to the PACU in stable condition all the needles and sponges and instruments were accounted for. Blood loss was minimal and the drain was a 18 Brazilian Garces catheter. No other surgical drain was left. I was present during the entire case. Type of Anesthesia: General Drains: garces 18 fr Admit VTE Documentation VTE Present on Admission: No VTE Mechan Device Prophylaxis: SCD's
[2021-02-12] MEDS: Lactated Ringers 1,000 ML 125 ML IV ×2 (12:07→20:16)
[2021-02-12] MEDS: Ketorolac 15 MG/ML Vial IV (12:08)
[2021-02-12] MEDS: Cefazolin 1 GM/50 ML BAG IV ×2 (13:48→23:00)
--- NOTE | 2021-02-12 16:51 | CHAPLAIN ---
Type of Pastoral Visit _x__ Initial Visit ___ Follow-up Visit ___ On-call Visit ___ General Patient Visit ___ Spiritual Assessment ___ Family Conference ___ Bereavement ___ Rapid Response ___ Code Blue ___ Other (describe below) Pastoral Care Referral From _x__ Patient _x__ Family ___ Nurse ___ Physician ___ Music Box Mechanic ___ Rn Immunology ___ Other (describe below) Sacrament/Intervention _x__ Active listening ___ Anointing ___ Orthodox ___ Bereavement ___ Communion ___ Maya exploration ___ ___ Life review x Prayer ___ Reconciliation ___ Sacrament of Sick _x__ Supportive presence ___ Wedding ___ Other (describe below) Pastoral Comments
[2021-02-12] MEDS: Docusate Sodium 100 MG Capsule 200 MG PO (23:00)
[2021-02-12] MEDS: Metoprolol Tartrate 50 MG Tablet PO (23:00)
[2021-02-12] MEDS: Atorvastatin Calcium 40 MG Tablet PO (23:01)
[2021-02-13] VITALS: BP 112/58; PULSE 67; RESP 16; TEMP 36.8; O2SAT 94
[2021-02-13 04:00] VITALS: BP 113/64; PULSE 60; RESP 16; TEMP 36.6; O2SAT 97
[2021-02-13] MEDS: Lactated Ringers 1,000 ML 125 ML IV (04:51)
[2021-02-13] MEDS: Ketorolac 15 MG/ML Vial IV (06:42)
[2021-02-13 06:45] LABS: Hematocrit 27.3 % (40-54); Hemoglobin 8.4 g/dL (13.0-16.5); Mean Corp Hgb Conc 30.8 g/dL (32-36); Mean Platelet Vol. 9.9 fl (6.2-12.0); Platelet Count 190 K/mm3 (150-450); RBC Distribution Width CV 15.5 % (11.6-14.6); RBC Distribution Width SD 50.8 fl (35.1-43.9); White Blood Count 8.5 K/mm3 (4.4-11.0)
[2021-02-13 07:12] LABS: Anion Gap 3 (5-15); BUN 16 mg/dL (7-18); BUN/Creat Ratio 11.4 RATIO (10-20); Calcium,Total 7.4 mg/dL (8.5-10.1); Chloride 111 mmol/L (98-107); EST Glomerular Filtration Rate 53 mL/min (>60); Est Glom Filt Rate - Afr Amer 65 mL/min (>60); Estimated Creatinine Clearance 52.14 ml/min; Glucose 112 mg/dL (74-106); Potassium 3.8 mmol/L (3.5-5.1); Sodium Level 141 mmol/L (136-145)
[2021-02-13 08:02] VITALS: BP 129/59; PULSE 56; RESP 16; TEMP 36.4; O2SAT 94
[2021-02-13 09:56] VITALS: BP 140/63; PULSE 62; RESP 18; TEMP 36.6; O2SAT 97
[2021-02-13] MEDS: dilTIAZem CD 180 MG Capsule PO (09:59)
[2021-02-13] MEDS: Lisinopril 20 MG Tablet PO (09:59)
[2021-02-13] MEDS: Multivitamins,Therapeutic Tablet 1 TABLET PO (09:59)
[2021-02-13] MEDS: Docusate Sodium 100 MG Capsule 200 MG PO (09:59)
[2021-02-13 10:00] VITALS: PULSE 62
[2021-02-13] MEDS: Metoprolol Tartrate 50 MG Tablet PO (10:00)
== END 2021-02-13 10:40 | disposition home or self-care (01) ==
LOC: SDC 05:54 → AC 05:54 → MS3 07:55
PROVIDERS: Anesthesiology; PCP Family Medicine Geriatric Medicine; Referring Provider Urology; Visit Provider Urology
PROC: 0VT04ZZ Resection of Prostate, Percutaneous Endoscopic Approach (ICD-10-PCS; CPT 55866; principal; 2021-02-12 07:10)
DX: C61 Malignant neoplasm of prostate (principal); I25.10 Atherosclerotic heart disease of native coronary artery without angina pectoris; J44.9 Chronic obstructive pulmonary disease, unspecified; I10 Essential (primary) hypertension; E78.00 Pure hypercholesterolemia, unspecified; I48.0 Paroxysmal atrial fibrillation; Z87.891 Personal history of nicotine dependence; Z79.02 Long term (current) use of antithrombotics/antiplatelets; Z79.899 Other long term (current) drug therapy
CPT/HCPCS: 55866; 36415; 80048; 80076; 85027; 85610; 85730; 86850; 86900; 86901; 88305; 88307; 88309; 99251; J7120; G0463; J2405

== ENCOUNTER → 2021-04-08 09:51 | Outpatient (CLI) | payer MEDICARE, SELFPAY ==
[2018-11-11 14:55] VITALS: BMI 22.2
[2021-04-08 13:16] LABS: PSA,Total- Diagnostic < 0.01 ng/mL (0.0-4.0)
== END ==
PROVIDERS: PCP Family Medicine Geriatric Medicine; Referring Provider Urology; Visit Provider Urology
DX: C61 Malignant neoplasm of prostate (principal)
CPT/HCPCS: 36415; 84153

== ENCOUNTER → 2021-05-02 10:13 | Outpatient (CLI) | payer MEDICARE, SELFPAY ==
[2018-11-11 14:55] VITALS: BMI 22.2
[2021-05-02 12:51] LABS: Absolute Lymphocyte Count 2.33 X10^3/uL (0.83-4.51); Basophil# 0.04 X10^3/uL; Basophil% 0.6 % (0-1); Eosinophil# 0.17 X10^3/uL; Eosinophils% 2.4 % (0-5); Hemoglobin 11.4 g/dL (13.0-16.5); Lymphocyte # 2.33 X10^3/ul (0.83-4.51); Mean Corp Hgb Conc 30.8 g/dL (32-36); Mean Corpuscular Hgb 27.2 pg (27.0-32.0); Mean Corpuscular Volume 88.3 fL (80-94); Mean Platelet Vol. 10.9 fl (6.2-12.0); Monocyte# 0.52 X10^3/uL; Monocyte% 7.4 % (0-10); NRBC Flagged by Analyzer 0 % (0-5); Neutrophil # 3.95 X10^3/uL (2.7-7.7); Neutrophil % 55.8 % (47-70); Platelet Count 232 K/mm3 (150-450); RBC Distribution Width CV 16.8 % (11.6-14.6); RBC Distribution Width SD 54.3 fl (35.1-43.9); Red Blood Count 4.19 M/mm3 (4.6-6.2); White Blood Count 7.1 K/mm3 (4.4-11.0)
[2021-05-02 13:08] LABS: Vitamin D,25 Hydroxy 30.4 ng/mL
[2021-05-02 13:18] LABS: ALB/GLOB Ratio 0.8 RATIO (0.9-2.4); AST(SGOT) 23 U/L (15-37); Alanine Aminotransfer ALT/SGPT 31 U/L (16-61); Albumin, Serum 3.3 g/dL (3.2-5.0); Alkaline Phosphatase 90 U/L (45-117); Anion Gap 5 (5-15); BUN 19 mg/dL (7-18); BUN/Creat Ratio 15.7 RATIO (10-20); Calcium,Total 8.5 mg/dL (8.5-10.1); Chloride 112 mmol/L (98-107); Creatinine, Serum 1.21 mg/dL (0.70-1.30); EST Glomerular Filtration Rate 63 mL/min (>60); Est Glom Filt Rate - Afr Amer 76 mL/min (>60); Globulin 4.4 g/dL (2.2-4.2); Glucose 104 mg/dL (74-106); Protein, Total 7.7 g/dL (6.4-8.2); Sodium Level 140 mmol/L (136-145); Thyroid Stim Hormone (TSH) 1.56 uIU/mL (0.358-3.74)
== END ==
PROVIDERS: PCP Family Medicine Geriatric Medicine; Visit Provider Family Medicine Geriatric Medicine
DX: E55.9 Vitamin D deficiency, unspecified (principal); I10 Essential (primary) hypertension
CPT/HCPCS: 36415; 80053; 82306; 84443; 85025

== ENCOUNTER → 2021-05-23 09:16 | Outpatient (CLI) | payer MEDICARE, SELFPAY ==
[2018-11-11 14:55] VITALS: BMI 22.2
[2021-05-23 12:54] LABS: Anion Gap 8 (5-15); BUN 19 mg/dL (7-18); BUN/Creat Ratio 12.8 RATIO (10-20); Calcium,Total 8.7 mg/dL (8.5-10.1); Chloride 115 mmol/L (98-107); Creatinine, Serum 1.48 mg/dL (0.70-1.30); EST Glomerular Filtration Rate 50 mL/min (>60); Est Glom Filt Rate - Afr Amer 61 mL/min (>60); Glucose 103 mg/dL (74-106); Potassium 3.8 mmol/L (3.5-5.1); Sodium Level 142 mmol/L (136-145)
== END ==
PROVIDERS: PCP Family Medicine Geriatric Medicine; Visit Provider Family Medicine Geriatric Medicine
DX: I10 Essential (primary) hypertension (principal)
CPT/HCPCS: 36415; 80048

== ENCOUNTER → 2021-07-11 09:56 | Outpatient (CLI) | payer MEDICARE, SELFPAY ==
[2018-11-11 14:55] VITALS: BMI 22.2
[2021-07-11 12:15] LABS: PSA,Total- Diagnostic < 0.01 ng/mL (0.0-4.0)
== END ==
PROVIDERS: PCP Family Medicine Geriatric Medicine; Referring Provider Urology; Visit Provider Urology
DX: C61 Malignant neoplasm of prostate (principal)
CPT/HCPCS: 36415; 84153

== ENCOUNTER 2021-08-10 15:08 | Emergency (ER) | payer MEDICARE, SELFPAY ==
[2018-11-11 14:55] VITALS: BMI 22.2
[2021-08-10 15:09] VITALS: BP 108/57; PULSE 50; RESP 20; TEMP 36; O2SAT 97; BMI 27.2
--- NOTE | 2021-08-10 15:32 | EKG12_ITS ---
Test Reason : DYSRHYTHMIA Blood Pressure : / mmHG Vent. Rate : 049 BPM Atrial Rate : 049 BPM P-R Int : 202 ms QRS Dur : 162 ms QT Int : 512 ms P-R-T Axes : 107 001 022 degrees QTc Int : 462 ms Sinus bradycardia Right bundle branch block Abnormal ECG LOW VOLTAGE QRS (LIMB LEADS) Confirmed by BIJAN EWING, MANUEL ([id number]), script editor REJI FOREMAN ([id number]) on 08/13/2021 10:37:33 AM Referred By: ARCHIE Confirmed By:MANUEL THAKKAR MD
--- NOTE | 2021-08-10 15:45 | RAD_ITS ---
STUDY: X-RAY CHEST REASON FOR EXAM: Male, 71 years old. cough, sob TECHNIQUE: 2 views COMPARISON: 11/04/2020 FINDINGS: Cardiomediastinal silhouette is unremarkable. Costophrenic angles are sharp. Lungs are hyperinflated but clear. The trachea is midline. There is no pneumothorax. The bones are grossly intact. RAD/Chest 1 View (Portable) IMPRESSION: No acute cardiopulmonary process. Electronically Signed: Emory Alexander MD at 16:08 EST Tel , Service support ,
[2021-08-10 15:53] LABS: Absolute Neutrophil Count 3.4 X10^3/uL (2.0-7.7); Basophil# 0.02 X10^3/uL; Basophil% 0.4 % (0-1); Eosinophil# 0.06 X10^3/uL; Eosinophils% 1.1 % (0-5); Hematocrit 38.3 % (40-54); Hemoglobin 12.5 g/dL (13.0-16.5); Lymphocyte % 26.4 % (19-41); Mean Corp Hgb Conc 32.6 g/dL (32-36); Mean Corpuscular Hgb 27.2 pg (27.0-32.0); Mean Corpuscular Volume 83.3 fL (80-94); Mean Platelet Vol. 10.6 fl (6.2-12.0); Monocyte# 0.44 X10^3/uL; Monocyte% 8.3 % (0-10); NRBC Flagged by Analyzer 0 % (0-5); Neutrophil # 3.35 X10^3/uL (2.7-7.7); POSITIVE MORPHOLOGY YES; Platelet Count 236 K/mm3 (150-450); RBC Distribution Width CV 16.7 % (11.6-14.6); RBC Distribution Width SD 50.4 fl (35.1-43.9); White Blood Count 5.3 K/mm3 (4.4-11.0)
[2021-08-10 15:54] LABS: Differential Indicated SCAN CRITERIA MET
[2021-08-10 16:15] LABS: Anion Gap 10 (5-15); BUN 54 mg/dL (7-18); BUN/Creat Ratio 18.2 RATIO (10-20); Calcium,Total 8.7 mg/dL (8.5-10.1); Chloride 114 mmol/L (98-107); Creatinine, Serum 2.96 mg/dL (0.70-1.30); EST Glomerular Filtration Rate 23 mL/min (>60); Est Glom Filt Rate - Afr Amer 27 mL/min (>60); Estimated Creatinine Clearance 24.32 ml/min; Glucose 122 mg/dL (74-106); Potassium 4.9 mmol/L (3.5-5.1); Sodium Level 138 mmol/L (136-145)
[2021-08-10 16:36] LABS: Differential Comment SCANNED
[2021-08-10 16:37] LABS: Reactive Lymphocyte 1+
[2021-08-10 19:03] VITALS: O2SAT 97
[2021-08-10 19:10] VITALS: O2SAT 98
[2021-08-10 19:22] VITALS: PULSE 94; RESP 22; O2SAT 98
--- NOTE | 2021-08-10 19:23 | ED.RN ---
THIS NURSE REVIEWED D/C INSTRUCTIONS WITH PT. PT VERBALIZED UNDERSTANDING OF INSTRUCTIONS. PT DENIES FURTHER NEEDS OR QUESTIONS AT THIS TIME. IV D/C. IV CATHETER INTACT. PT TOLERATED WELL
--- NOTE | 2021-08-10 20:11 | EX.ED.VIS.UR ---
HPI HPI - URI History of Present Illness Chief Complaint: Shortness of Breath Narrative Narrative: 71-year-old male presenting with cough, body aches, mild malaise. Patient states he has had a fever around [place] but this is resolved. He is not complaining of any chest pain. He is not dyspneic. Patient has no headache. He denies nausea, vomiting, diarrhea. ROS ROS ED Constitutional Constitutional ED: Reports chills Eyes Eyes: Denies blurry vision or diplopia ENT ENT ED: Denies rhinorrhea or sore throat Cardiovascular Cardiovascular: Denies chest pain or palpitations Respiratory/Chest Respiratory/Chest: Reports cough; Denies dyspnea Gastrointestinal Gastrointestinal: Denies abdominal pain, nausea or vomiting Genitourinary Genitourinary ED: Denies dysuria or hematuria Musculoskeletal Musculoskeletal: Reports myalgias; Denies arthralgias or neck pain Integumentary Denies Abrasions or rash Neurologic Neurologic: Denies headache(s), paresthesias or weakness PFSH [facility] Medical History (Updated 08/10/21 @ 19:[address] Juanito Lawler, ) Atherosclerotic heart disease of [place] coronary artery without angina pectoris Basal cell carcinoma Cardiology follow-up encounter Cardiomyopathy in diseases classified elsewhere COPD (chronic obstructive pulmonary disease) Easy bruising Emphysema/COPD Essential hypertension Excessive bleeding Former smoker High cholesterol History of echocardiogram (~12/05/20) History of stress test (~11/02/18) Hyperlipidemia Ischemic cardiomyopathy Leg cramps Lung nodule Nicotine dependence Paroxysmal atrial fibrillation Persistent atrial fibrillation Persistent atrial fibrillation with rapid ventricular response Shortness of breath on exertion Wears dentures Wears glasses Home Medications multivitamin 1 tab PO QAM 05/19/19 [History Last Taken Unknown] apixaban 5 mg tablet 5 mg PO BID 30 Days #60 tab 04/26/20 [Rx Last Taken 02/08/21] atorvastatin 40 mg tablet 40 mg PO QHS 90 Days #90 tab 11/22/20 [Rx Last Taken Unknown] diltiazem HCl 180 mg capsule,extended release 24 hr 180 mg PO DAILY #90 cap 11/22/20 [Rx Last Taken 02/12/21] lisinopril 20 mg tablet 20 mg PO DAILY #90 tablet 11/22/20 [Rx Last Taken 02/12/21] metoprolol tartrate 50 mg tablet 50 mg PO BID #180 tab 11/22/20 [Rx Last Taken 02/12/21] aspirin 81 mg tablet,delayed release 81 mg PO DAILY #1 tab 01/01/21 [Rx Last Taken 02/06/21] cephalexin 500 mg PO BID #20 cap 02/12/21 [Rx Last Taken Unknown] docusate sodium [Colace] 100 mg PO BID #20 cap 02/12/21 [Rx Last Taken Unknown] oxycodone-acetaminophen 1 tab PO Q6H PRN 7 Days #14 tab 02/12/21 [Rx Last Taken Unknown] Allergy/AdvReac Type Severity Reaction Status Date / Time ciprofloxacin Allergy Other Verified 08/10/21 15:12 doxycycline AdvReac diarrhea Verified 08/10/21 15:12 Family History Mother , Age 73 Asthma Diabetes Kidney disease Father , age 63 Cancer stomach and lung Sister CHF (congestive heart failure) Sister Colon cancer Surgical History History of cardiac catheterization (~11/11/18) History of cardioversion (01/23/19) History of coronary artery stent placement (11/11/18) History of hernia surgery History of resection of small bowel Hx of colectomy Social History (Updated 11/22/20 @ 15:56 by Nicol GARCIA, PA) Smoking Status: Former smoker how long ago did patient quit smokin months ago alcohol intake: never substance use type: does not use caffeine: Yes Type: coffee Number of servings: 3 EXAM Physical Exam Const Vital Signs: 08/10/21 15:09 08/10/21 19:03 08/10/21 19:10 Temperature 96.8 F L Temperature Source Temporal Pulse Rate 50 L Respiratory Rate 20 H Respiratory Effort Normal Labored Respiratory Depth Normal Respiratory Pattern Normal Blood Pressure 108/57 L Blood Pressure Mean 74 Pulse Ox 97 97 Oxygen Delivery Method Room Air Room Air Room Air 08/10/21 19:22 Temperature Temperature Source Pulse Rate 94 Respiratory Rate 22 H Respiratory Effort Respiratory Depth Respiratory Pattern Blood Pressure Blood Pressure Mean Pulse Ox 98 Oxygen Delivery Method Positive well nourished General Appearance ED: NAD; Negative for pallor HEENT Reports normocephalic, head/scalp atraumatic and moist mucous membranes Eyes PERRL and EOMs intact bilaterally Neck no lymphadenopathy and supple Chest Wall inspection of chest normal and palpation of chest normal Resp normal respiratory effort and clear to auscultation bilaterally Auscultation: Negative for rales, rhonchi or wheezes Cardio regular rate and regular rhythm GI normal to inspection, nondistended, normoactive bowel sounds and non-distended Auscultation: normoactive bowel sounds Palpation: soft Narrative: Deferred Extremity normal to inspection General Extremety ED: Yes edema and tenderness General Extremity: edema Neuro oriented x3 and CN's II-XII intact bilaterally Sensorium / Orientation: alert Motor Exam: strength 5/5 throughout Psych mental status grossly normal Attitude: No agitated Skin no rashes or lesions noted and no wounds General Skin Exam: Negative for jaundice or pallor MDM MDM MDM Narrative Medical decision making narrative: 71-year-old male who is well-appearing presenting with a cough mild fatigue, body aches and chills. I obtained blood work and his CBC is normal. Patient has an elevation in his creatinine at 2.96 but he states that he is able to eat and drink and is not having nausea or vomiting. Chest x-ray shows no acute cardiopulmonary process. Patient did test positive for Covid 19 today. He is counseled that he will need to hydrate well at home and drink plenty of fluids until his urine is clear. He did have an EKG that was performed as a protocol which shows a sinus cardia with a ventricular to 49 bpm without sign of ischemic change. discussed with hospitalist who did not feel the patient needed to be admitted for ALEXEY and can follow up out patient. I spoke with Dr. Loco regarding the patient and he was amenable to seeing him in office on Wednesday. Patient will be informed of this. He will be discharged home for follow-up. Impression: 1. COVID-19 2. Acute kidney injury Lab Data Attestation: I reviewed the patient's lab results. Labs: Laboratory Results - last 24 hr 08/10/21 08/10/21 15:43 15:43 WBC 5.3 RBC 4.60 Hgb 12.5 L Hct 38.3 L MCV 83.3 MCH 27.2 MCHC 32.6 RDW Std Deviation 50.4 H RDW Coeff of [place] 16.7 H Plt Count 236 MPV 10.6 Immature Gran % (Auto) 0.800 Neut % (Auto) 63.0 Lymph % (Auto) 26.4 [place] % (Auto) 8.3 Eos % (Auto) 1.1 Baso % (Auto) 0.4 Absolute Neuts (auto) 3.4 Absolute Lymphs (auto) 1.40 Nucleated RBC % 0 Differential Comment SCANNED Reactive Lymphocytes 1+ Sodium 138 Potassium 4.9 Chloride 114 H Carbon Dioxide 14.0 L Anion Gap 10 BUN 54 H Creatinine 2.96 H Estim Creat Clear Calc 24.32 Est GFR (MDRD) Af Amer 27 L Est GFR (MDRD) Non-Af 23 L BUN/Creatinine Ratio 18.2 Glucose 122 H Calcium 8.7 Radiography Diagnostic Testing: Clinical Impression(s) from Imaging Studies Chest X-Ray 08/10/21 15:45 IMPRESSION: No acute cardiopulmonary process. Electronically Signed: Emory Alexander MD at 16:08 EST Tel , Service support , Discharge Plan Triage Chief Complaint: Shortness of Breath ED Provider: Juanito Lawler Dx/Rx/DC Orders Clinical Impression: COVID-19 Instructions: Coronavirus Disease 2019 (COVID-19): Overview, COVID-19: Lying in a Prone Position (Proning), ED - COVID Monoclonal AB Infusion ... Prescriptions: No Action multivitamin Tablet 1 tab PO QAM RF: 0 metoprolol tartrate 50 mg tablet 50 mg PO BID Qty: 180 RF: 6 diltiazem HCl [Cardizem CD] 180 mg capsule,extended release 24hr 180 mg PO DAILY Qty: 90 RF: 3 atorvastatin 40 mg tablet 40 mg PO QHS 90 Days Qty: 90 RF: 3 lisinopril 20 mg tablet 20 mg PO DAILY Qty: 90 RF: 3 cephalexin 500 mg capsule 500 mg PO BID Qty: 20 RF: 0 docusate sodium [Colace] 100 mg capsule 100 mg PO BID Qty: 20 RF: 0 oxycodone-acetaminophen 5-325 mg tablet 1 tab PO Q6H PRN (Reason: pain) 7 Days Qty: 14 RF: 0 apixaban 5 mg tablet 5 mg PO BID 30 Days Qty: 60 RF: 11 Hold Instructions: Resume on 02/26/21. aspirin [Adult Aspirin Regimen] 81 mg tablet,delayed release (DR/EC) 81 mg PO DAILY Qty: 1 RF: 0 Primary Care Provider: Samson Loco Chi Referrals: Samson Loco Chi, MD [Primary Care Provider] - Disposition Disposition: Home, Self Care Discharge Date/Time: 08/10/21 19:24
== END 2021-08-10 19:24 | disposition home or self-care (01) ==
PROVIDERS: Emergency Provider Student in an Organized Health Care Education/Training Program; PCP Family Medicine Geriatric Medicine; Visit Provider Student in an Organized Health Care Education/Training Program
DX: U07.1 COVID-19 (principal); N17.9 Acute kidney failure, unspecified; I25.10 Atherosclerotic heart disease of native coronary artery without angina pectoris; Z87.891 Personal history of nicotine dependence
CPT/HCPCS: 71045; 80048; 85025; 87426; 93005; 99282; A4216

== ENCOUNTER 2021-08-12 16:35 | Outpatient (CLI) | payer MEDICARE, SELFPAY ==
[2018-11-11 14:55] VITALS: BMI 22.2
[2021-08-12 17:14] LABS: Anion Gap 15 (5-15); BUN 70 mg/dL (7-18); BUN/Creat Ratio 23.7 RATIO (10-20); Calcium,Total 8.5 mg/dL (8.5-10.1); Chloride 112 mmol/L (98-107); Creatinine, Serum 2.95 mg/dL (0.70-1.30); EST Glomerular Filtration Rate 23 mL/min (>60); Est Glom Filt Rate - Afr Amer 27 mL/min (>60); Glucose 110 mg/dL (74-106); Potassium 3.3 mmol/L (3.5-5.1); Sodium Level 141 mmol/L (136-145)
== END 2021-08-12 23:59 | disposition short-term general hospital (02) ==
LOC: POLAB3 16:36
PROVIDERS: PCP Family Medicine Geriatric Medicine; Visit Provider Family Medicine Geriatric Medicine
DX: N17.9 Acute kidney failure, unspecified (principal)
CPT/HCPCS: 36415; 80048

== ENCOUNTER 2021-08-13 17:43 | Outpatient (CLI) | payer MEDICARE, SELFPAY ==
[2018-11-11 14:55] VITALS: BMI 22.2
[2021-08-13 18:18] LABS: Urine Sodium 38 mmol/L (Not Establ.)
[2021-08-13 18:43] LABS: Anion Gap 11 (5-15); BUN 64 mg/dL (7-18); BUN/Creat Ratio 27.5 RATIO (10-20); Calcium,Total 8.5 mg/dL (8.5-10.1); Chloride 117 mmol/L (98-107); Creatinine, Serum 2.33 mg/dL (0.70-1.30); EST Glomerular Filtration Rate 30 mL/min (>60); Est Glom Filt Rate - Afr Amer 36 mL/min (>60); Glucose 126 mg/dL (74-106); Potassium 3.2 mmol/L (3.5-5.1); Sodium Level 143 mmol/L (136-145)
== END 2021-08-13 23:59 | disposition short-term general hospital (02) ==
PROVIDERS: PCP Family Medicine Geriatric Medicine; Visit Provider Family Medicine Geriatric Medicine
DX: N17.9 Acute kidney failure, unspecified (principal)
CPT/HCPCS: 36415; 80048; 82570; 84300

== ENCOUNTER 2021-08-14 13:01 | Outpatient (CLI) | payer MEDICARE, SELFPAY ==
[2018-11-11 14:55] VITALS: BMI 22.2
[2021-08-14 17:30] LABS: Anion Gap 11 (5-15); BUN 44 mg/dL (7-18); BUN/Creat Ratio 26.5 RATIO (10-20); Calcium,Total 7.8 mg/dL (8.5-10.1); Chloride 120 mmol/L (98-107); Creatinine, Serum 1.66 mg/dL (0.70-1.30); EST Glomerular Filtration Rate 44 mL/min (>60); Est Glom Filt Rate - Afr Amer 53 mL/min (>60); Glucose 120 mg/dL (74-106); Potassium 3.5 mmol/L (3.5-5.1); Sodium Level 146 mmol/L (136-145)
--- NOTE | 2021-08-19 12:38 | US_ITS ---
STUDY: RENAL ULTRASOUND - COMPLETE REASON FOR EXAM: Male, 71 years old. ACUTE KIDNEY FAILURE TECHNIQUE: Ultrasound evaluation of the kidneys was performed with real-time and static gilliam-scale imaging. COMPARISON: None. FINDINGS: RIGHT KIDNEY: Normal location of the right kidney, which is normal in size. The right kidney measures 10.2 cm x 5.9 cm x 5.3 cm. There is a normal cortex of the right kidney. The renal cortex measures 1.3 cm. There is no right renal mass or cyst. There are no right renal calculi. There is no right hydronephrosis. DISTAL RIGHT URETER: There is non-visualization of the distal right ureter. There is no demonstrated right ureterovesical junction calculus. There is no demonstrated right ureteral jet. LEFT KIDNEY: Normal location of the left kidney, which is normal in size. The left kidney measures 9.9 cm x 5 cm x 6 cm. There is a normal cortex of the left kidney. The renal cortex measures 1.2 cm. There is no left renal mass or cyst. There are no left renal calculi. There is no left hydronephrosis. DISTAL LEFT URETER: There is non-visualization of the distal left ureter. There is no demonstrated left ureterovesical junction calculus. There is no demonstrated left ureteral jet. BLADDER: The distended urinary bladder has a volume of 94 ml. The empty urinary bladder has a volume of 16 ml. There is a normal wall thickness of the distended urinary bladder. There is no demonstrated mass within the urinary bladder. There are no demonstrated bladder calculi. US/Kidney and Bladder IMPRESSION: Normal ultrasound of the kidneys and urinary bladder. Electronically Signed: Urbano Walls MD at 14:38 EST , Service support ,
== END 2021-08-14 23:59 | disposition short-term general hospital (02) ==
PROVIDERS: PCP Family Medicine Geriatric Medicine; Referring Provider Family Medicine Geriatric Medicine; Visit Provider Family Medicine Geriatric Medicine
DX: N17.9 Acute kidney failure, unspecified (principal); R94.4 Abnormal results of kidney function studies
CPT/HCPCS: 36415; 76770; 80048

== ENCOUNTER 2021-08-15 12:01 | Outpatient (CLI) | payer MEDICARE, SELFPAY ==
[2018-11-11 14:55] VITALS: BMI 22.2
[2021-08-15 12:23] VITALS: BMI 26.1
[2021-08-15 12:28] VITALS: BP 160/73; PULSE 58; RESP 16; TEMP 36.6; O2SAT 96; BMI 26.1
[2021-08-15] MEDS: 0.9% Saline Lock 10 ML Syringe IV (12:32)
[2021-08-15 12:54] VITALS: BP 163/60; PULSE 53; RESP 16; TEMP 36.8; O2SAT 97
[2021-08-15 13:42] VITALS: BP 153/70; PULSE 54; RESP 16; TEMP 36.9; O2SAT 98
== END 2021-08-15 23:59 | disposition home or self-care (01) ==
LOC: MS3OUT 12:03 → MS3 12:03
PROVIDERS: PCP Family Medicine Geriatric Medicine; Referring Provider Nurse Practitioner Adult Health; Visit Provider Nurse Practitioner Adult Health
DX: Z23 Encounter for immunization (principal); U07.1 COVID-19
CPT/HCPCS: J7050; M0243; A4216; Q0244

== ENCOUNTER 2021-08-20 11:41 | Outpatient (CLI) | payer MEDICARE, SELFPAY ==
[2018-11-11 14:55] VITALS: BMI 22.2
[2021-08-20 12:46] LABS: Anion Gap 10 (5-15); BUN 28 mg/dL (7-18); BUN/Creat Ratio 23.1 RATIO (10-20); Calcium,Total 7.2 mg/dL (8.5-10.1); Chloride 104 mmol/L (98-107); Creatinine, Serum 1.21 mg/dL (0.70-1.30); EST Glomerular Filtration Rate 63 mL/min (>60); Est Glom Filt Rate - Afr Amer 76 mL/min (>60); Glucose 90 mg/dL (74-106); Potassium 3.2 mmol/L (3.5-5.1); Sodium Level 143 mmol/L (136-145)
[2021-08-20 12:50] LABS: Color, Urine Yellow (Yellow); Glucose, Dipstick Normal (Normal); Ketone-Dipstick Negative (Negative); Leukocyte Esterase-Dipstick 100 /ul (Negative); Nitrite-Dipstick Positive (Negative); Occult Blood-Urine 10 /ul (Negative); Protein-Dipstick 30 mg/dl (Negative); Specific Gravity, Urine 1.025 (1.002-1.030); Urine Bilirubin Dipstick Negative (Negative); Urine Clarity Clear (Clear); Urine Urobilinogen Normal (Normal)
[2021-08-20 12:57] LABS: Protein, Urine (Random) 57.9 mg/dL (<11.9); Protein:Creat Ratio 449 mg/g CRE (0-200)
== END 2021-08-20 23:59 | disposition short-term general hospital (02) ==
LOC: POLAB3 11:42
PROVIDERS: PCP Family Medicine Geriatric Medicine; Visit Provider Internal Medicine Nephrology
DX: N17.9 Acute kidney failure, unspecified (principal)
CPT/HCPCS: 36415; 80048; 81002; 82570; 84156

== ENCOUNTER 2021-09-16 15:26 | Outpatient (CLI) | payer MEDICARE, SELFPAY ==
[2018-11-11 14:55] VITALS: BMI 22.2
--- NOTE | 2021-09-16 15:46 | RAD_ITS ---
STUDY: X-RAY CHEST REASON FOR EXAM: Male, 71 years old. Shortness of breath. History of COPD. Smoking history. O2 sat doctor''s office was the 70s according to patient. TECHNIQUE: PA and lateral views of the chest. COMPARISON: 08/10/2021. FINDINGS: There is diffuse interstitial changes throughout both lungs most marked throughout the left lung and at the right lung base. There is no focal mass or consolidation. There is no demonstrated pleural abnormality. Normal size heart. Normal mediastinum and emmett. Normal visualized pulmonary arteries. There is atherosclerotic calcification of the aortic arch with tortuosity. No osseous changes. Normal visualized ribs, clavicles, and shoulders. There is no demonstrated abnormality of the visualized soft tissue structures of the upper abdomen. RAD/Chest PA and Lateral IMPRESSION: Diffuse bilateral pulmonary interstitial infiltrates not present on the previous study. Question pneumonia. Electronically Signed: Arcadio Mendoza DO at 16:19 EST ,
--- NOTE | 2021-09-16 15:53 | RAD_ITS ---
STUDY: X-RAY - ABDOMEN/PELVIS REASON FOR EXAM: Male, 71 years old. Abdominal pain. TECHNIQUE: AP supine and upright views of the abdomen and pelvis. COMPARISON: None. FINDINGS: Diffuse interstitial changes in lungs most marked at the left lung base. The heart is normal in size. There is an unremarkable bowel gas pattern air is seen scattered throughout the colon. There is no small bowel dilatation or evidence of obstruction.. There is no demonstrated free abdominal air. The visualized liver, spleen and kidneys are grossly normal in size and morphology. Normal soft tissue structures. There are diffuse degenerative changes of the visualized lumbar spine. RAD/Abd Inc Decub and/or Erect IMPRESSION: 1. No evidence of acute intra-abdominal process. 2. Interstitial changes in the lungs most marked at the left lung base. 3. Degenerative changes of the lumbar spine. Electronically Signed: Arcadio Mendoza DO at 16:18 EST ,
[2021-09-16 16:46] LABS: Absolute Lymphocyte Count 2.22 X10^3/uL (0.83-4.51); Absolute Neutrophil Count 7.4 X10^3/uL (2.0-7.7); Basophil# 0.06 X10^3/uL; Basophil% 0.5 % (0-1); Eosinophil# 0.04 X10^3/uL; Eosinophils% 0.4 % (0-5); Hematocrit 31.7 % (40-54); Hemoglobin 10.2 g/dL (13.0-16.5); Lymphocyte # 2.22 X10^3/ul (0.83-4.51); Mean Corp Hgb Conc 32.2 g/dL (32-36); Mean Corpuscular Hgb 27.4 pg (27.0-32.0); Mean Corpuscular Volume 85.2 fL (80-94); Monocyte# 0.93 X10^3/uL; Monocyte% 8.4 % (0-10); NRBC Flagged by Analyzer 0.2 % (0-5); Neutrophil # 7.44 X10^3/uL (2.7-7.7); Platelet Count 511 K/mm3 (150-450); RBC Distribution Width CV 17.7 % (11.6-14.6); RBC Distribution Width SD 53.7 fl (35.1-43.9); Red Blood Count 3.72 M/mm3 (4.6-6.2); White Blood Count 11.1 K/mm3 (4.4-11.0)
[2021-09-16 17:03] LABS: BUN 14 mg/dL (7-18); Creatinine, Serum 1.29 mg/dL (0.70-1.30); Glucose 108 mg/dL (74-106)
[2021-09-16 17:04] LABS: ALB/GLOB Ratio 0.4 RATIO (0.9-2.4); AST(SGOT) 44 U/L (15-37); Alanine Aminotransfer ALT/SGPT 65 U/L (16-61); Alkaline Phosphatase 98 U/L (45-117); Anion Gap 9 (5-15); BUN/Creat Ratio 10.9 RATIO (10-20); CPK Total, Creatine Kinase 84 U/L (39-308); Calcium,Total 7.4 mg/dL (8.5-10.1); Chloride 104 mmol/L (98-107); EST Glomerular Filtration Rate 59 mL/min (>60); Est Glom Filt Rate - Afr Amer 71 mL/min (>60); Globulin 5.5 g/dL (2.2-4.2); Protein, Total 7.5 g/dL (6.4-8.2); Sodium Level 142 mmol/L (136-145); Troponin-I HS 67 pg/mL (3.0-78.0)
[2021-09-16 17:19] LABS: BNP,B-Type NATRIURETIC PEPTIDE 383.5 pg/mL (0-100)
[2021-09-16 18:54] LABS: D-Dimer Quantitative (DVT/PE) 3.81 FEU/ug/m (0.27-0.49)
[2021-09-18 10:27] LABS: Myoglobin, Serum 78 ng/mL (28-72)
== END 2021-09-16 23:59 | disposition home or self-care (01) ==
LOC: POLAB3 15:27 → RAD 15:41
PROVIDERS: PCP Family Medicine Geriatric Medicine; Visit Provider Family Medicine Geriatric Medicine
DX: R06.02 Shortness of breath (principal); R06.89 Other abnormalities of breathing; R10.9 Unspecified abdominal pain
CPT/HCPCS: 36415; 71046; 74019; 80053; 82550; 83874; 83880; 84484; 85025; 85379

== ENCOUNTER 2021-09-17 12:34 | Outpatient (CLI) | payer MEDICARE, SELFPAY ==
[2018-11-11 14:55] VITALS: BMI 22.2
--- NOTE | 2021-09-17 12:41 | CT_ITS ---
STUDY: CTA CHEST REASON FOR EXAM: Male, 71 years old. ABN COAG PROFILE. Elevated d-dimer. History of recent Covid. RADIATION DOSAGE (If Supplied By Facility): CTDIvol = ( 11.03 ) mGy, DLP = ( 450.46 ) mGycm TECHNIQUE: The examination was performed with the intravenous administration of IV 100mL Isovue-370. Post-processing of the angiographic images was performed, with multiplanar reformation and 3D reconstruction. Individualized dose optimization techniques were used for this CT. COMPARISON: Comparison is made with prior chest radiograph dated 09/16/2021. FINDINGS: Normal enhancement of the main pulmonary artery and right and left pulmonary arteries. Normal enhancement of the bilateral peripheral pulmonary arteries. There is no demonstrated pulmonary embolism. Normal thoracic aorta and visualized great vessels. There is no demonstrated aortic dissection. There are mild calcifications of the coronary arteries. Normal mediastinum. Normal hilar regions. Normal visualized trachea and bronchi. The lungs are well expanded. Diffuse infiltrate in the left upper lobe with bronchiectasis and multiple cystic changes. Pulmonary infiltrates are also seen in both lung bases as well as in the medial aspect of the right middle lobe. With the history of Covid , pneumonitis should be ruled out. Tiny right pleural effusion. Normal chest wall structures. There are degenerative changes of thoracic spine. Multiple small gallstones. CT/CTA Chest W/WO Contrast IMPRESSION: Diffuse bilateral pulmonary infiltrates worse in the left hemithorax with a tiny left pleural effusion. Follow-up is recommended. Electronically Signed: Urbano Walls MD at 13:32 EST ,
== END 2021-09-17 23:59 | disposition home or self-care (01) ==
PROVIDERS: PCP Family Medicine Geriatric Medicine; Referring Provider Family Medicine Geriatric Medicine; Visit Provider Family Medicine Geriatric Medicine
DX: R79.1 Abnormal coagulation profile (principal); R68.83 Chills (without fever); Z20.822 Contact with and (suspected) exposure to COVID-19
CPT/HCPCS: 71275; 87635; 87804; 87807; C9803; Q9967; U0003; U0005

== ENCOUNTER 2021-10-03 11:21 | Outpatient (CLI) | payer MEDICARE, SELFPAY ==
[2018-11-11 14:55] VITALS: BMI 22.2
--- NOTE | 2021-10-03 11:24 | RAD_ITS ---
STUDY: X-RAY CHEST REASON FOR EXAM: Male, 71 years old. SOB TECHNIQUE: PA and lateral views of the chest. COMPARISON: 09/16/2021 FINDINGS: There is stable diffuse interstitial changes throughout both lungs most marked throughout the left lung and at the right lung base. There is no focal mass or consolidation. There is no demonstrated pleural abnormality. Normal size heart. Normal mediastinum and emmett. Normal visualized pulmonary arteries. There is atherosclerotic calcification of the aortic arch with tortuosity. No osseous changes. Normal visualized ribs, clavicles, and shoulders. There is no demonstrated abnormality of the visualized soft tissue structures of the upper abdomen. RAD/Chest PA and Lateral IMPRESSION: No interval change Electronically Signed: Juaquin Watkins MD at 13:17 EST ,
== END 2021-10-03 23:59 | disposition home or self-care (01) ==
LOC: RAD 11:22
PROVIDERS: PCP Family Medicine Geriatric Medicine; Referring Provider Family Medicine Geriatric Medicine; Visit Provider Family Medicine Geriatric Medicine
DX: R06.89 Other abnormalities of breathing (principal)
CPT/HCPCS: 71046

== ENCOUNTER 2021-10-17 09:04 | Outpatient (CLI) | payer MEDICARE, SELFPAY ==
[2018-11-11 14:55] VITALS: BMI 22.2
[2021-10-17 13:05] LABS: Hematocrit 36.7 % (40-54); Hemoglobin 11.6 g/dL (13.0-16.5); Mean Corp Hgb Conc 31.6 g/dL (32-36); Mean Corpuscular Hgb 28.7 pg (27.0-32.0); Mean Corpuscular Volume 90.8 fL (80-94); Mean Platelet Vol. 9.9 fl (6.2-12.0); POSITIVE COUNT YES; POSITIVE MORPHOLOGY YES; Platelet Count 213 K/mm3 (150-450); RBC Distribution Width SD 67.1 fl (35.1-43.9); Red Blood Count 4.04 M/mm3 (4.6-6.2); White Blood Count 7.2 K/mm3 (4.4-11.0)
[2021-10-17 13:10] LABS: Differential Indicated MANUAL DIFF
[2021-10-17 13:27] LABS: ALB/GLOB Ratio 0.7 RATIO (0.9-2.4); AST(SGOT) 21 U/L (15-37); Alanine Aminotransfer ALT/SGPT 36 U/L (16-61); Albumin, Serum 2.7 g/dL (3.2-5.0); Alkaline Phosphatase 73 U/L (45-117); Anion Gap 5 (5-15); BUN 26 mg/dL (7-18); BUN/Creat Ratio 20.5 RATIO (10-20); Chloride 110 mmol/L (98-107); Creatinine, Serum 1.27 mg/dL (0.70-1.30); EST Glomerular Filtration Rate 60 mL/min (>60); Est Glom Filt Rate - Afr Amer 72 mL/min (>60); Glucose 100 mg/dL (74-106); Potassium 4.7 mmol/L (3.5-5.1); Protein, Total 6.7 g/dL (6.4-8.2); Sodium Level 141 mmol/L (136-145); Thyroid Stim Hormone (TSH) 2.03 uIU/mL (0.358-3.74)
[2021-10-17 13:28] LABS: PSA,Total - Annual Screen < 0.01 ng/mL (0.00-4.00)
[2021-10-17 13:30] LABS: Lymphocyte 19 % (19-41); Metamyelocyte 4 % (0-1); Monocyte 11 % (0-10); Myelocyte 1 % (0-0); Neutrophil-Segmented 65 % (47-70); Total Cells Counted 100 (MANUAL DIFF)
[2021-10-17 13:31] LABS: Anisocytosis 2+
[2021-10-17 13:32] LABS: Vitamin D,25 Hydroxy 16.8 ng/mL
[2021-10-17 13:33] LABS: Absolute Lymphocyte Count 1.36 X10^3/uL (0.83-4.51); Absolute Neutrophil Count 4.6 X10^3/uL (2.0-7.7)
[2021-10-18 00:55] LABS: Platelet Estimate ADEQUATE (ADEQ)
[2021-10-20 12:42] LABS: Pathologist Review Reviewed
== END 2021-10-17 23:59 | disposition home or self-care (01) ==
LOC: POLAB3 09:04
PROVIDERS: Urology; PCP Family Medicine Geriatric Medicine; Visit Provider Family Medicine Geriatric Medicine
DX: C61 Malignant neoplasm of prostate (principal); E55.9 Vitamin D deficiency, unspecified; I10 Essential (primary) hypertension; Z12.5 Encounter for screening for malignant neoplasm of prostate
CPT/HCPCS: 36415; 80053; 82306; 84153; 84443; 85025; G0103

== ENCOUNTER 2021-11-06 08:54 | Outpatient (CLI) | payer MEDICARE, SELFPAY ==
[2018-11-11 14:55] VITALS: BMI 22.2
[2021-11-06 10:41] LABS: Albumin, Serum 2.8 g/dL (3.2-5.0); BUN 19 mg/dL (7-18); BUN/Creat Ratio 16.1 RATIO (10-20); Calcium,Total 8.7 mg/dL (8.5-10.1); Chloride 110 mmol/L (98-107); Creatinine, Serum 1.18 mg/dL (0.70-1.30); EST Glomerular Filtration Rate 65 mL/min (>60); Est Glom Filt Rate - Afr Amer 79 mL/min (>60); Glucose 99 mg/dL (74-106); Phosphorus 3.1 mg/dL (2.5-4.9); Potassium 3.6 mmol/L (3.5-5.1); Sodium Level 141 mmol/L (136-145)
== END 2021-11-06 23:59 | disposition home or self-care (01) ==
PROVIDERS: PCP Family Medicine Geriatric Medicine; Referring Provider Internal Medicine Nephrology; Visit Provider Internal Medicine Nephrology
DX: N17.9 Acute kidney failure, unspecified (principal)
CPT/HCPCS: 36415; 80069

== ENCOUNTER → 2022-01-16 | Outpatient (CLI) | payer MEDICARE, SELFPAY ==
[2018-11-11 14:55] VITALS: BMI 22.2
[2022-01-16 12:29] LABS: Absolute Neutrophil Count 7.5 X10^3/uL (2.0-7.7); Basophil# 0.07 X10^3/uL; Basophil% 0.6 % (0-1); Eosinophil# 0.08 X10^3/uL; Eosinophils% 0.7 % (0-5); Hematocrit 41.3 % (40-54); Lymphocyte % 25.9 % (19-41); Mean Corp Hgb Conc 31.5 g/dL (32-36); Mean Corpuscular Hgb 29.1 pg (27.0-32.0); Mean Corpuscular Volume 92.6 fL (80-94); Mean Platelet Vol. 10.2 fl (6.2-12.0); Monocyte# 0.74 X10^3/uL; Monocyte% 6.4 % (0-10); NRBC Flagged by Analyzer 0 % (0-5); Neutrophil # 7.53 X10^3/uL (2.7-7.7); Neutrophil % 64.9 % (47-70); Platelet Count 274 K/mm3 (150-450); RBC Distribution Width CV 14.4 % (11.6-14.6); Red Blood Count 4.46 M/mm3 (4.6-6.2); White Blood Count 11.6 K/mm3 (4.4-11.0)
[2022-01-16 12:42] LABS: Vitamin D,25 Hydroxy 35.7 ng/mL
[2022-01-16 12:58] LABS: BUN 19 mg/dL (7-18); Creatinine, Serum 1.24 mg/dL (0.70-1.30); Glucose 93 mg/dL (74-106)
[2022-01-16 12:59] LABS: ALB/GLOB Ratio 0.8 RATIO (0.9-2.4); AST(SGOT) 23 U/L (15-37); Alanine Aminotransfer ALT/SGPT 35 U/L (16-61); Albumin, Serum 3.4 g/dL (3.2-5.0); Alkaline Phosphatase 69 U/L (45-117); Anion Gap 7 (5-15); BUN/Creat Ratio 15.3 RATIO (10-20); Chloride 108 mmol/L (98-107); EST Glomerular Filtration Rate 61 mL/min (>60); Est Glom Filt Rate - Afr Amer 74 mL/min (>60); Protein, Total 7.4 g/dL (6.4-8.2); Sodium Level 139 mmol/L (136-145); Thyroid Stim Hormone (TSH) 1.93 uIU/mL (0.358-3.74)
== END | disposition home or self-care (01) ==
LOC: POLAB3 09:18
PROVIDERS: PCP Family Medicine Geriatric Medicine; Visit Provider Family Medicine Geriatric Medicine
DX: I10 Essential (primary) hypertension (principal); E55.9 Vitamin D deficiency, unspecified
CPT/HCPCS: 36415; 80053; 82306; 84443; 85025

== ENCOUNTER → 2022-02-20 | Outpatient (CLI) | payer MEDICARE, SELFPAY ==
[2018-11-11 14:55] VITALS: BMI 22.2
[2022-02-20 13:10] LABS: Anion Gap 7 (5-15); BUN 14 mg/dL (7-18); BUN/Creat Ratio 9.5 RATIO (10-20); Calcium,Total 8.8 mg/dL (8.5-10.1); Chloride 113 mmol/L (98-107); Creatinine, Serum 1.48 mg/dL (0.70-1.30); EST Glomerular Filtration Rate 50 mL/min (>60); Est Glom Filt Rate - Afr Amer 60 mL/min (>60); Glucose 99 mg/dL (74-106); Potassium 3.9 mmol/L (3.5-5.1); Sodium Level 143 mmol/L (136-145)
== END | disposition home or self-care (01) ==
LOC: POLAB3 09:26
PROVIDERS: PCP Family Medicine Geriatric Medicine; Visit Provider Family Medicine Geriatric Medicine
DX: I10 Essential (primary) hypertension (principal)
CPT/HCPCS: 36415; 80048

== ENCOUNTER → 2022-04-01 | Outpatient (CLI) | payer MEDICARE, SELFPAY ==
[2018-11-11 14:55] VITALS: BMI 22.2
--- NOTE | 2022-04-01 10:27 | CDU_ITS ---
Reason For Study: Carotid Stenosis Rt. Velocities/BP Lt. Velocities/BP Prox CCA 90/17 cm/sec. Prox CCA 78/18 cm/sec. Mid CCA 100/26 cm/sec. Mid CCA 115/26 cm/sec. Dist CCA 134/29 cm/sec. Dist CCA 90/21 cm/sec. Prox ICA 147/29 cm/sec. Prox ICA 122/32 cm/sec. Mid ICA 93/24 cm/sec. Mid ICA 81/27 cm/sec. Dist ICA 98/25 cm/sec. Dist ICA 78/23 cm/sec. Rt. ICA/CCA = 1.47. Lt. ICA/CCA = 1.06. Prox ECA 140/16 cm/sec. Prox ECA 118/21 cm/sec. Rt. Vert. 37 cm/sec. Lt. Vert. 55/16 cm/sec. Right Extracranial There is heterogeneous, irregular atherosclerotic plaque noted in the right common carotid artery. There is heterogeneous, irregular atherosclerotic plaque noted in the right internal carotid artery. There is no significant atherosclerotic plaque noted in the right external carotid artery. Antegrade flow is noted in the right vertebral artery. Left Extracranial There is heterogeneous, irregular atherosclerotic plaque noted in the left common carotid artery. There is heterogeneous, irregular atherosclerotic plaque noted in the left internal carotid artery. There is no significant atherosclerotic plaque noted in the left external carotid artery. Antegrade flow is noted in the left vertebral artery. Procedure Carotid Duplex [id number]. This is a Carotid Duplex examination using B-mode, color flow and specral Doppler. Exam performed in department. VL/Carotid Duplex Ultrasound Interpretation Summary Smooth plaque noted within the right common carotid and very proximal internal carotid artery with 50 to 69% stenosis of the proximal right internal carotid artery Less than 50% stenosis right external carotid artery Calcific plaque within the left common carotid artery and proximal internal car otid artery with less than 50% stenosis of the internal carotid artery though close to this range. Less than 50% stenosis left external carotid artery Patent and antegrade vertebral arteries bilaterally No advancement of disease from the previous examination of December 05, 2020 Ordering Physician: Linda López Referring Physician: Samson Loco Chi Performed By: Ciara Benitez RDCS, RVT
== END | disposition home or self-care (01) ==
PROVIDERS: PCP Family Medicine Geriatric Medicine; Referring Provider Nurse Practitioner Gerontology; Visit Provider Nurse Practitioner Gerontology
DX: I65.23 Occlusion and stenosis of bilateral carotid arteries (principal)
CPT/HCPCS: 93880

== ENCOUNTER → 2022-04-21 | Outpatient (CLI) | payer MEDICARE, SELFPAY ==
[2018-11-11 14:55] VITALS: BMI 22.2
[2022-04-21 10:11] LABS: PSA,Total- Diagnostic < 0.01 ng/mL (0.0-4.0)
== END | disposition home or self-care (01) ==
LOC: MTLAB 07:33
PROVIDERS: PCP Family Medicine Geriatric Medicine; Referring Provider Urology; Visit Provider Urology
DX: C61 Malignant neoplasm of prostate (principal)
CPT/HCPCS: 36415; 84153

== ENCOUNTER → 2022-04-24 | Outpatient (CLI) | payer MEDICARE, SELFPAY ==
[2018-11-11 14:55] VITALS: BMI 22.2
[2022-04-24 12:31] LABS: Absolute Lymphocyte Count 2.61 X10^3/uL (0.83-4.51); Absolute Neutrophil Count 5.4 X10^3/uL (2.0-7.7); Basophil# 0.06 X10^3/uL; Basophil% 0.7 % (0-1); Eosinophil# 0.09 X10^3/uL; Hematocrit 40.1 % (40-54); Hemoglobin 12.6 g/dL (13.0-16.5); Lymphocyte # 2.61 X10^3/ul (0.83-4.51); Lymphocyte % 28.7 % (19-41); Mean Corp Hgb Conc 31.4 g/dL (32-36); Mean Corpuscular Hgb 28.2 pg (27.0-32.0); Mean Corpuscular Volume 89.7 fL (80-94); Mean Platelet Vol. 10.6 fl (6.2-12.0); Monocyte# 0.82 X10^3/uL; NRBC Flagged by Analyzer 0 % (0-5); Neutrophil # 5.38 X10^3/uL (2.7-7.7); Neutrophil % 59.3 % (47-70); Platelet Count 231 K/mm3 (150-450); RBC Distribution Width SD 52.9 fl (35.1-43.9); Red Blood Count 4.47 M/mm3 (4.6-6.2); White Blood Count 9.1 K/mm3 (4.4-11.0)
[2022-04-24 12:41] LABS: Vitamin D,25 Hydroxy 34.1 ng/mL
[2022-04-24 13:24] LABS: ALB/GLOB Ratio 0.9 RATIO (0.9-2.4); AST(SGOT) 24 U/L (15-37); Alanine Aminotransfer ALT/SGPT 38 U/L (16-61); Albumin, Serum 3.7 g/dL (3.2-5.0); Alkaline Phosphatase 95 U/L (45-117); Anion Gap 9 (5-15); BUN 19 mg/dL (7-18); BUN/Creat Ratio 13.3 RATIO (10-20); Calcium,Total 9.4 mg/dL (8.5-10.1); Chloride 112 mmol/L (98-107); Creatinine, Serum 1.43 mg/dL (0.70-1.30); EST Glomerular Filtration Rate 52 mL/min (>60); Est Glom Filt Rate - Afr Amer 63 mL/min (>60); Globulin 4.1 g/dL (2.2-4.2); Glucose 95 mg/dL (74-106); Potassium 4.5 mmol/L (3.5-5.1); Protein, Total 7.8 g/dL (6.4-8.2); Sodium Level 143 mmol/L (136-145); Thyroid Stim Hormone (TSH) 2.48 uIU/mL (0.358-3.74)
== END | disposition home or self-care (01) ==
LOC: POLAB3 09:05
PROVIDERS: PCP Family Medicine Geriatric Medicine; Visit Provider Family Medicine Geriatric Medicine
DX: I10 Essential (primary) hypertension (principal); E55.9 Vitamin D deficiency, unspecified
CPT/HCPCS: 36415; 80053; 82306; 84443; 85025

== ENCOUNTER → 2022-08-07 | Outpatient (CLI) | payer MEDICARE, SELFPAY ==
[2018-11-11 14:55] VITALS: BMI 22.2
[2022-08-07 13:42] LABS: Absolute Lymphocyte Count 2.76 X10^3/uL (0.83-4.51); Absolute Neutrophil Count 5.3 X10^3/uL (2.0-7.7); Basophil# 0.05 X10^3/uL; Basophil% 0.6 % (0-1); Eosinophil# 0.09 X10^3/uL; Hematocrit 40.7 % (40-54); Hemoglobin 12.5 g/dL (13.0-16.5); Lymphocyte # 2.76 X10^3/ul (0.83-4.51); Lymphocyte % 30.6 % (19-41); Mean Corp Hgb Conc 30.7 g/dL (32-36); Mean Corpuscular Hgb 26.9 pg (27.0-32.0); Mean Corpuscular Volume 87.7 fL (80-94); Mean Platelet Vol. 10.6 fl (6.2-12.0); Monocyte# 0.77 X10^3/uL; Monocyte% 8.5 % (0-10); NRBC Flagged by Analyzer 0 % (0-5); Neutrophil # 5.29 X10^3/uL (2.7-7.7); Neutrophil % 58.6 % (47-70); Platelet Count 234 K/mm3 (150-450); RBC Distribution Width CV 16.1 % (11.6-14.6); RBC Distribution Width SD 51.7 fl (35.1-43.9); Red Blood Count 4.64 M/mm3 (4.6-6.2)
[2022-08-07 13:54] LABS: Vitamin D,25 Hydroxy 22.8 ng/mL
[2022-08-07 14:02] LABS: ALB/GLOB Ratio 0.9 RATIO (0.9-2.4); AST(SGOT) 27 U/L (15-37); Alanine Aminotransfer ALT/SGPT 34 U/L (16-61); Albumin, Serum 3.7 g/dL (3.2-5.0); Alkaline Phosphatase 93 U/L (45-117); Anion Gap 6 (5-15); BUN 22 mg/dL (7-18); BUN/Creat Ratio 16.7 RATIO (10-20); Chloride 110 mmol/L (98-107); Creatinine, Serum 1.32 mg/dL (0.70-1.30); EST Glomerular Filtration Rate 57 mL/min (>60); Est Glom Filt Rate - Afr Amer 69 mL/min (>60); Globulin 4.1 g/dL (2.2-4.2); Glucose 82 mg/dL (74-106); Potassium 4.2 mmol/L (3.5-5.1); Protein, Total 7.8 g/dL (6.4-8.2); Sodium Level 140 mmol/L (136-145); Thyroid Stim Hormone (TSH) 2.38 uIU/mL (0.358-3.74)
== END | disposition home or self-care (01) ==
LOC: POLAB3 10:02
PROVIDERS: PCP Family Medicine Geriatric Medicine; Visit Provider Family Medicine Geriatric Medicine
DX: I10 Essential (primary) hypertension (principal); E55.9 Vitamin D deficiency, unspecified
CPT/HCPCS: 36415; 80053; 82306; 84443; 85025

== ENCOUNTER → 2022-10-19 | Outpatient (CLI) | payer MEDICARE, SELFPAY ==
[2018-11-11 14:55] VITALS: BMI 22.2
[2022-10-19 10:18] LABS: PSA,Total- Diagnostic < 0.01 ng/mL (0.0-4.0)
== END | disposition home or self-care (01) ==
LOC: MTLAB 09:11
PROVIDERS: PCP Family Medicine Geriatric Medicine; Visit Provider Urology
DX: C61 Malignant neoplasm of prostate (principal)
CPT/HCPCS: 36415; 84153

== ENCOUNTER → 2022-10-23 | Outpatient (CLI) | payer MEDICARE, SELFPAY ==
[2018-11-11 14:55] VITALS: BMI 22.2
[2022-10-23 12:35] LABS: Absolute Lymphocyte Count 2.48 X10^3/uL (0.83-4.51); Basophil# 0.05 X10^3/uL; Basophil% 0.6 % (0-1); Eosinophil# 0.08 X10^3/uL; Hematocrit 40.1 % (40-54); Hemoglobin 12.6 g/dL (13.0-16.5); Lymphocyte # 2.48 X10^3/ul (0.83-4.51); Lymphocyte % 29.8 % (19-41); Mean Corp Hgb Conc 31.4 g/dL (32-36); Mean Corpuscular Hgb 28.1 pg (27.0-32.0); Mean Corpuscular Volume 89.5 fL (80-94); Mean Platelet Vol. 10.6 fl (6.2-12.0); Monocyte# 0.65 X10^3/uL; Monocyte% 7.8 % (0-10); NRBC Flagged by Analyzer 0 % (0-5); Neutrophil # 4.96 X10^3/uL (2.7-7.7); Neutrophil % 59.7 % (47-70); Platelet Count 196 K/mm3 (150-450); RBC Distribution Width CV 16.1 % (11.6-14.6); RBC Distribution Width SD 53.1 fl (35.1-43.9); Red Blood Count 4.48 M/mm3 (4.6-6.2); White Blood Count 8.3 K/mm3 (4.4-11.0)
[2022-10-23 12:52] LABS: Vitamin D,25 Hydroxy 16.3 ng/mL
[2022-10-23 13:09] LABS: ALB/GLOB Ratio 0.9 RATIO (0.9-2.4); AST(SGOT) 25 U/L (15-37); Alanine Aminotransfer ALT/SGPT 36 U/L (16-61); Albumin, Serum 3.7 g/dL (3.2-5.0); Alkaline Phosphatase 93 U/L (45-117); Anion Gap 11 (5-15); BUN 22 mg/dL (7-18); BUN/Creat Ratio 16.1 RATIO (10-20); Calcium,Total 8.8 mg/dL (8.5-10.1); Chloride 111 mmol/L (98-107); Creatinine, Serum 1.37 mg/dL (0.70-1.30); EST Glomerular Filtration Rate 55 mL/min (>60); Est Glom Filt Rate - Afr Amer 66 mL/min (>60); Glucose 91 mg/dL (74-106); Protein, Total 7.7 g/dL (6.4-8.2); Sodium Level 142 mmol/L (136-145); Thyroid Stim Hormone (TSH) 2.38 uIU/mL (0.358-3.74)
== END | disposition home or self-care (01) ==
LOC: POLAB3 09:30
PROVIDERS: PCP Family Medicine Geriatric Medicine; Visit Provider Family Medicine Geriatric Medicine
DX: I10 Essential (primary) hypertension (principal); E55.9 Vitamin D deficiency, unspecified; Z12.5 Encounter for screening for malignant neoplasm of prostate
CPT/HCPCS: 36415; 80053; 82306; 84443; 85025

== ENCOUNTER → 2023-01-29 | Outpatient (CLI) | payer MEDICARE, SELFPAY ==
[2018-11-11 14:55] VITALS: BMI 22.2
[2023-01-29 10:20] LABS: Absolute Lymphocyte Count 2.01 X10^3/uL (0.83-4.51); Absolute Neutrophil Count 4.6 X10^3/uL (2.0-7.7); Basophil# 0.04 X10^3/uL; Basophil% 0.5 % (0-1); Eosinophil# 0.13 X10^3/uL; Eosinophils% 1.7 % (0-5); Hematocrit 38.8 % (40-54); Lymphocyte # 2.01 X10^3/ul (0.83-4.51); Mean Corp Hgb Conc 30.9 g/dL (32-36); Mean Corpuscular Hgb 27.4 pg (27.0-32.0); Mean Corpuscular Volume 88.6 fL (80-94); Mean Platelet Vol. 9.4 fl (6.2-12.0); Monocyte# 0.62 X10^3/uL; Monocyte% 8.3 % (0-10); NRBC Flagged by Analyzer 0 % (0-5); Neutrophil % 61.8 % (47-70); Platelet Count 235 K/mm3 (150-450); RBC Distribution Width CV 15.2 % (11.6-14.6); RBC Distribution Width SD 49.2 fl (35.1-43.9); Red Blood Count 4.38 M/mm3 (4.6-6.2); White Blood Count 7.5 K/mm3 (4.4-11.0)
[2023-01-29 10:49] LABS: Vitamin D,25 Hydroxy 44.6 ng/mL
[2023-01-29 10:59] LABS: ALB/GLOB Ratio 0.7 RATIO (0.9-2.4); AST(SGOT) 27 U/L (15-37); Alanine Aminotransfer ALT/SGPT 24 U/L (16-61); Albumin, Serum 3.1 g/dL (3.2-5.0); Alkaline Phosphatase 95 U/L (45-117); Anion Gap 4 (5-15); BUN 23 mg/dL (7-18); BUN/Creat Ratio 16.5 RATIO (10-20); Calcium,Total 8.6 mg/dL (8.5-10.1); Chloride 111 mmol/L (98-107); Creatinine, Serum 1.39 mg/dL (0.70-1.30); EST Glomerular Filtration Rate 54 mL/min (>60); Est Glom Filt Rate - Afr Amer 65 mL/min (>60); Globulin 4.4 g/dL (2.2-4.2); Glucose 102 mg/dL (74-106); Potassium 4.2 mmol/L (3.5-5.1); Protein, Total 7.5 g/dL (6.4-8.2); Sodium Level 140 mmol/L (136-145); Thyroid Stim Hormone (TSH) 1.74 uIU/mL (0.358-3.74)
== END | disposition home or self-care (01) ==
LOC: LAB 10:05
PROVIDERS: PCP Family Medicine Geriatric Medicine; Referring Provider Family Medicine Geriatric Medicine; Visit Provider Family Medicine Geriatric Medicine
DX: I10 Essential (primary) hypertension (principal); E55.9 Vitamin D deficiency, unspecified
CPT/HCPCS: 36415; 80053; 82306; 84443; 85025

== ENCOUNTER → 2023-04-21 | Outpatient (CLI) | payer MEDICARE, SELFPAY ==
[2018-11-11 14:55] VITALS: BMI 22.2
--- NOTE | 2023-04-21 10:34 | CDU_ITS ---
Reason For Study: Carotid stenosis Rt. Velocities/BP Lt. Velocities/BP Prox CCA 84.4/14.5 cm/sec. Prox CCA 83.9/16.3 cm/sec. Mid CCA 109.7/20 cm/sec. Mid CCA 92.5/20 cm/sec. Dist CCA 132.1/15.2 cm/sec. Dist CCA 93.7/15.1 cm/sec. Prox ICA 145.9/18.9 cm/sec. Prox ICA 66.7/18.8 cm/sec. Mid ICA 117/22.6 cm/sec. Mid ICA 117/31.4 cm/sec. Dist ICA 101/29.8 cm/sec. Dist ICA 99.4/27 cm/sec. Rt. ICA/CCA = 1.33. Lt. ICA/CCA = 1.26. Prox ECA 87.6/9 cm/sec. Prox ECA 90/13.9 cm/sec. Rt. Vert. 29/5.5 cm/sec. Lt. Vert. 59.3/17.6 cm/sec. Right Extracranial There is heterogeneous, irregular atherosclerotic plaque noted in the right common carotid artery. There is heterogeneous, irregular atherosclerotic plaque noted in the right internal carotid artery. There is intimal thickening but no significant atherosclerotic plaque noted in the right external carotid artery. Antegrade flow is noted in the right vertebral artery. Left Extracranial There is heterogeneous, irregular atherosclerotic plaque noted in the left common carotid artery. There is heterogeneous, irregular atherosclerotic plaque noted in the left internal carotid artery. There is intimal thickening but no significant atherosclerotic plaque noted in the left external carotid artery. Antegrade flow is noted in the left vertebral artery. Procedure Carotid Duplex [id number]. This is a Carotid Duplex examination using B-mode, color flow and specral Doppler. Exam performed in department. VL/Carotid Duplex Ultrasound Interpretation Summary Moderate (50-69%) stenosis right extracranial internal carotid. Mild (<50%) stenosis left extracranial internal carotid. Patent and antegrade vertebrals bilaterally. Ordering Physician: Linda López Referring Physician: Samson Loco Chi Performed By: Rayne Eldridge RVT
[2023-04-21 13:01] LABS: PSA,Total- Diagnostic < 0.01 ng/mL (0.0-4.0)
== END | disposition home or self-care (01) ==
PROVIDERS: Registered Nurse; PCP Family Medicine Geriatric Medicine; Referring Provider Nurse Practitioner Gerontology; Visit Provider Nurse Practitioner Gerontology
DX: C61 Malignant neoplasm of prostate (principal); I65.23 Occlusion and stenosis of bilateral carotid arteries
CPT/HCPCS: 36415; 84153; 93880

== ENCOUNTER → 2023-05-07 | Outpatient (CLI) | payer MEDICARE, SELFPAY ==
[2018-11-11 14:55] VITALS: BMI 22.2
[2023-05-07 10:50] LABS: Absolute Lymphocyte Count 2.34 X10^3/uL (0.83-4.51); Absolute Neutrophil Count 4.2 X10^3/uL (2.0-7.7); Basophil# 0.04 X10^3/uL; Basophil% 0.5 % (0-1); Eosinophils% 1.4 % (0-5); Hematocrit 38.6 % (40-54); Hemoglobin 12.2 g/dL (13.0-16.5); Lymphocyte # 2.34 X10^3/ul (0.83-4.51); Lymphocyte % 31.7 % (19-41); Mean Corp Hgb Conc 31.6 g/dL (32-36); Mean Corpuscular Hgb 28.4 pg (27.0-32.0); Mean Platelet Vol. 10.3 fl (6.2-12.0); Monocyte# 0.65 X10^3/uL; Monocyte% 8.8 % (0-10); NRBC Flagged by Analyzer 0 % (0-5); Neutrophil # 4.22 X10^3/uL (2.7-7.7); Neutrophil % 57.1 % (47-70); Platelet Count 197 K/mm3 (150-450); RBC Distribution Width CV 16.7 % (11.6-14.6); RBC Distribution Width SD 55.3 fl (35.1-43.9); Red Blood Count 4.29 M/mm3 (4.6-6.2); White Blood Count 7.4 K/mm3 (4.4-11.0)
[2023-05-07 11:12] LABS: Vitamin D,25 Hydroxy 38.2 ng/mL
[2023-05-07 11:34] LABS: ALB/GLOB Ratio 0.9 RATIO (0.9-2.4); AST(SGOT) 19 U/L (15-37); Alanine Aminotransfer ALT/SGPT 26 U/L (16-61); Albumin, Serum 3.5 g/dL (3.2-5.0); Alkaline Phosphatase 97 U/L (45-117); Anion Gap 5 (5-15); BUN 20 mg/dL (7-18); BUN/Creat Ratio 15.2 RATIO (10-20); Calcium,Total 8.4 mg/dL (8.5-10.1); Chloride 110 mmol/L (98-107); Creatinine, Serum 1.32 mg/dL (0.70-1.30); EST Glomerular Filtration Rate 57 mL/min (>60); Est Glom Filt Rate - Afr Amer 69 mL/min (>60); Glucose 98 mg/dL (74-106); Potassium 4.5 mmol/L (3.5-5.1); Protein, Total 7.5 g/dL (6.4-8.2); Sodium Level 140 mmol/L (136-145); Thyroid Stim Hormone (TSH) 2.69 uIU/mL (0.358-3.74)
== END | disposition home or self-care (01) ==
LOC: POLAB3 09:02
PROVIDERS: PCP Family Medicine Geriatric Medicine; Visit Provider Family Medicine Geriatric Medicine
DX: I10 Essential (primary) hypertension (principal); E55.9 Vitamin D deficiency, unspecified
CPT/HCPCS: 36415; 80053; 82306; 84443; 85025

== ENCOUNTER → 2023-08-13 | Outpatient (CLI) | payer MEDICARE, SELFPAY ==
[2018-11-11 14:55] VITALS: BMI 22.2
[2023-08-13 10:55] LABS: Absolute Lymphocyte Count 2.32 X10^3/uL (0.83-4.51); Absolute Neutrophil Count 4.9 X10^3/uL (2.0-7.7); Basophil# 0.06 X10^3/uL; Basophil% 0.7 % (0-1); Eosinophil# 0.09 X10^3/uL; Eosinophils% 1.1 % (0-5); Hematocrit 39.7 % (40-54); Hemoglobin 12.1 g/dL (13.0-16.5); Lymphocyte # 2.32 X10^3/ul (0.83-4.51); Lymphocyte % 28.8 % (19-41); Mean Corp Hgb Conc 30.5 g/dL (32-36); Mean Corpuscular Volume 88.6 fL (80-94); Mean Platelet Vol. 9.6 fl (6.2-12.0); Monocyte# 0.58 X10^3/uL; Monocyte% 7.2 % (0-10); NRBC Flagged by Analyzer 0 % (0-5); Neutrophil # 4.94 X10^3/uL (2.7-7.7); Neutrophil % 61.3 % (47-70); Platelet Count 232 K/mm3 (150-450); RBC Distribution Width CV 15.2 % (11.6-14.6); RBC Distribution Width SD 49.5 fl (35.1-43.9); Red Blood Count 4.48 M/mm3 (4.6-6.2); White Blood Count 8.1 K/mm3 (4.4-11.0)
--- OUTSIDE RECORDS SUMMARY | 2023-08-13 11:16 | XMS RPT_ITS | CCD ---
Author Name Unknown Address [address] [place] [address] Organization [facility] Care Team Providers Care Electronics Commodity Manager Name Role Phone SINAN, FIONA-CHI Primary Care Unavailable BOYDSTUN, HAMLET P Attending Unavailable MILVIA SHAFFER Referring Unavailable SINAN, FIONA-CHI Primary Care Unavailable SINAN, FIONA-CHI Referring Unavailable BOYDSTUN, HAMLET P Attending Unavailable SINAN, FIONA-CHI Primary Care Unavailable BOYDSTUN, HAMLET P Attending Unavailable REFERRED, SELF Referring Unavailable SINAN, FIONA-CHI Primary Care Unavailable SINAN, FIONA-CHI Referring Unavailable BOYDSTUN, HAMLET P Attending Unavailable SINAN, FIONA-CHI Referring Unavailable SINAN, FIONA-CHI Primary Care Unavailable BOYDSTUN, HAMLET P Attending Unavailable Results Test Name Value Interpretation Reference Range Facil ity Encounters Encounter Date Encounter Type Care Provider Facility Start: 02-23-2023 End: 02-23-2023 ambulatory FIONA[facility]I SINAN [facility] Start: 11-24-2022 End: 11-24-2022 ambulatory [facility] SINAN [facility] Start: 11-20-2022 End: 11-21-2022 ambulatory [facility] S[facility] Start: 11-17-2022 End: 11-17-2022 ambulatory [facility] S[facility] Start: 09-08-2022 End: 09-08-2022 ambulatory [facility] S[facility] Payers Date Payer Category Payer Unknown [id number] 2.16. [id number] 1950 Unknown [id number] 2.16. [id number] 1950 Unknown [id number] 2.16. [id number] 1950 Unknown [id number] 2.16. [id number] 1950 Unknown [id number] 2.16. [id number] Medicare [id number] Summary Purpose Family History No Family History Records Found Advance Directives No Advanced Directives Records Found Additional Source Comments (unrecognized sect ion and content) No Status Records Found INFORMATION SOURCE (unrecogn ized section and content) FOR RECORDS PERTAINING TO PATIENTS WHO ARE OR HAVE BEEN ENROLLED IN A CHEMICAL DEPENDENCY/SUBSTANCEABUSE PROGRAM, SOME INFORMATION MAY BE OMITTED. This clinical summary was aggregated from multiple sources. Caution should be exercised in using it in the provision of clinical care. This summary normalizes information from multiple sources, and as a consequence, information in this document may materially change the coding, format and clinical context of patient data. In addition, data may be omitted in some cases. CLINICAL DECISIONS SHOULD BE BASED ON THE PRIMARY CLINICAL RECORDS. [facility] [employer] [facility]. provides no warranty or guarantee of the accuracy or completeness of information in this document.
[2023-08-13 11:27] LABS: Vitamin D,25 Hydroxy 35.4 ng/mL
[2023-08-13 11:35] LABS: ALB/GLOB Ratio 0.8 RATIO (0.9-2.4); AST(SGOT) 20 U/L (15-37); Alanine Aminotransfer ALT/SGPT 26 U/L (16-61); Albumin, Serum 3.3 g/dL (3.2-5.0); Alkaline Phosphatase 87 U/L (45-117); Anion Gap 4 (5-15); BUN 18 mg/dL (7-18); BUN/Creat Ratio 12.6 RATIO (10-20); Calcium,Total 8.7 mg/dL (8.5-10.1); Chloride 114 mmol/L (98-107); Creatinine, Serum 1.43 mg/dL (0.70-1.30); EST Glomerular Filtration Rate 52 mL/min (>60); Est Glom Filt Rate - Afr Amer 63 mL/min (>60); Globulin 4.2 g/dL (2.2-4.2); Glucose 90 mg/dL (74-106); Potassium 4.3 mmol/L (3.5-5.1); Protein, Total 7.5 g/dL (6.4-8.2); Sodium Level 143 mmol/L (136-145); Thyroid Stim Hormone (TSH) 2.63 uIU/mL (0.358-3.74)
== END | disposition home or self-care (01) ==
LOC: LAB 10:10
PROVIDERS: PCP Family Medicine Geriatric Medicine; Referring Provider Family Medicine Geriatric Medicine; Visit Provider Family Medicine Geriatric Medicine
DX: I10 Essential (primary) hypertension (principal); E55.9 Vitamin D deficiency, unspecified
CPT/HCPCS: 36415; 80053; 82306; 84443; 85025

== ENCOUNTER → 2023-09-24 | Outpatient (CLI) | payer MEDICARE, SELFPAY ==
[2018-11-11 14:55] VITALS: BMI 22.2
[2023-09-24 10:04] LABS: Absolute Lymphocyte Count 2.42 X10^3/uL (0.83-4.51); Absolute Neutrophil Count 5.2 X10^3/uL (2.0-7.7); Basophil# 0.04 X10^3/uL; Basophil% 0.5 % (0-1); Eosinophils% 1.2 % (0-5); Hematocrit 40.1 % (40-54); Hemoglobin 12.9 g/dL (13.0-16.5); Lymphocyte # 2.42 X10^3/ul (0.83-4.51); Lymphocyte % 28.5 % (19-41); Mean Corp Hgb Conc 32.2 g/dL (32-36); Mean Corpuscular Volume 87.2 fL (80-94); Mean Platelet Vol. 9.7 fl (6.2-12.0); Monocyte% 8.3 % (0-10); NRBC Flagged by Analyzer 0 % (0-5); Neutrophil # 5.18 X10^3/uL (2.7-7.7); Platelet Count 224 K/mm3 (150-450); RBC Distribution Width CV 15.3 % (11.6-14.6); RBC Distribution Width SD 48.7 fl (35.1-43.9); White Blood Count 8.5 K/mm3 (4.4-11.0)
[2023-09-24 10:13] LABS: BNP,B-Type NATRIURETIC PEPTIDE 195.9 pg/mL (0-100)
[2023-09-24 10:16] LABS: Anion Gap 5 (5-15); BUN 20 mg/dL (7-18); BUN/Creat Ratio 14.5 RATIO (10-20); Calcium,Total 8.6 mg/dL (8.5-10.1); Chloride 115 mmol/L (98-107); Creatinine, Serum 1.38 mg/dL (0.70-1.30); EST Glomerular Filtration Rate 54 mL/min (>60); Est Glom Filt Rate - Afr Amer 65 mL/min (>60); Glucose 101 mg/dL (74-106); Potassium 4.1 mmol/L (3.5-5.1); Sodium Level 141 mmol/L (136-145)
== END | disposition home or self-care (01) ==
LOC: LAB 09:29
PROVIDERS: PCP Family Medicine Geriatric Medicine; Referring Provider Nurse Practitioner Gerontology; Visit Provider Nurse Practitioner Gerontology
DX: R06.09 Other forms of dyspnea (principal)
CPT/HCPCS: 36415; 80048; 83880; 85025

== ENCOUNTER → 2023-09-30 | Outpatient (CLI) | payer MEDICARE, SELFPAY ==
[2018-11-11 14:55] VITALS: BMI 22.2
[2023-09-30 11:35] LABS: Anion Gap 6 (5-15); BUN 31 mg/dL (7-18); BUN/Creat Ratio 20.4 RATIO (10-20); Calcium,Total 8.1 mg/dL (8.5-10.1); Chloride 112 mmol/L (98-107); Creatinine, Serum 1.52 mg/dL (0.70-1.30); EST Glomerular Filtration Rate 48 mL/min (>60); Est Glom Filt Rate - Afr Amer 58 mL/min (>60); Glucose 93 mg/dL (74-106); Sodium Level 139 mmol/L (136-145)
== END | disposition home or self-care (01) ==
LOC: LAB 09:56
PROVIDERS: PCP Family Medicine Geriatric Medicine; Referring Provider Nurse Practitioner Gerontology; Visit Provider Nurse Practitioner Gerontology
DX: R06.09 Other forms of dyspnea (principal)
CPT/HCPCS: 36415; 80048

== ENCOUNTER → 2023-10-22 | Outpatient (CLI) | payer MEDICARE, SELFPAY ==
[2018-11-11 14:55] VITALS: BMI 22.2
--- OUTSIDE RECORDS SUMMARY | 2023-10-22 10:11 | XMS RPT_ITS | CCD ---
Author Name Unknown Address [address] [place] [address] Organization [facility] Care Team Providers Care Cdl Program Coordinator Name Role Phone SINAN, FIONA-CHI Primary Care [...] Start: 02-23-2023 End: 02-23-2023 ambulatory [facility] SIN[facility] Start: 11-24-2022 End: 11-24-2022 ambulatory [facility] S[facility] Start: 11-20-2022 End: 11-21-2022 ambulatory [facility] S[facility] Start: 11-17-2022 End: 11-17-2022 ambulatory [facility] S[facility] Start: 09-08-2022 End: 09-08-2022 ambulatory [facility] S[facility] Payers Date Payer Category Payer Unknown [id number] 2.16. [id number] 1950 Unknown [id number] 2.16. [id number] 1950 Unknown [id number] 2.16. [id number] 1950 Unknown [id number] 2.16. [id number] 1950 Unknown [id number] 2.16. [id number] Medicare [id number] Summary Purpose Family History No Family History [...] BE BASED ON THE PRIMARY CLINICAL RECORDS. [facility] [employer] [facility]. provides no warranty or guarantee of the accuracy or completeness of information in this document.
[2023-10-22 13:03] LABS: PSA,Total- Diagnostic < 0.01 ng/mL (0.0-4.0)
== END | disposition home or self-care (01) ==
LOC: MTLAB 09:42
PROVIDERS: PCP Family Medicine Geriatric Medicine; Referring Provider Urology; Visit Provider Urology
DX: C61 Malignant neoplasm of prostate (principal)
CPT/HCPCS: 36415; 84153

== ENCOUNTER → 2023-10-27 | Outpatient (CLI) | payer MEDICARE, SELFPAY ==
[2018-11-11 14:55] VITALS: BMI 22.2
--- NOTE | 2023-10-27 06:45 | ECHOD_ITS ---
Reason For Study: CAD/ASHD Procedure This was a 2D Doppler, Color Flow transthoracic echocardiogram. Exam performed in department. Left Ventricle Normal LV size. Left ventricular systolic function is normal. The estimated ejection fraction is 60 %. Stage 2 diastolic dysfunction. No regional wall motion abnormalities noted. Right Ventricle Normal RV size. Normal systolic function. Atria Normal left atrium. Normal right atrium. Mitral Valve Normal mitral valve. Tricuspid Valve Normal tricuspid valve. Mild to moderate (1-2+) tricuspid valve insufficiency. Pulmonary artery systolic pressure is 44 mmHg. Aortic Valve Trisinus/trileaflet aortic valve. Normal aortic valve. Pulmonic Valve Normal pulmonic valve. Great Vessels Normal aortic root. The pulmonary artery is normal size. Normal inferior vena cava. Pericardium/Pleural No pericardial effusion. MMode/2D Measurements & Calculations LVIDd: 5.3 cm IVSd: 1.4 cm Ao root diam: 3.0 cm LVIDs: 4.0 cm LVPWd: 1.0 cm RVDd: 3.1 cm FS: 23.5 % LAV(MOD-bp): 48.6 ml LVAd ap4: 33.8 cm2 SV(MOD-sp4): 76.8 ml LAV(MOD-bp) Indexed: 23.6 ml/m2 LVLd ap4: 8.3 cm LAV(MOD-sp2): 41.1 ml EDV(MOD-sp4): 113.0 ml LAV(MOD-sp4): 52.7 ml EDV(sp4-el): 117.3 ml LVAs ap4: 17.3 cm2 LVLs ap4: 6.9 cm ESV(MOD-sp4): 36.2 ml ESV(sp4-el): 36.8 ml EF(MOD-sp4): 68.0 % EF(sp4-el): 68.6 % SV(sp4-el): 80.5 ml LA A4 area: 19.8 cm2 LA dimension(2D): 3.8 cm RA A4 area: 12.5 cm2 TAPSE: 2.3 cm Time Measurements MV dec time: 0.21 sec Doppler Measurements & Calculations MV E max ryan: 111.1 cm/sec Lat Peak E' Ryan: 12.8 cm/sec Med Peak E' Ryan: 3.9 cm/sec MV A max ryan: 83.7 cm/sec E/E' lat: 8.7 E/E' med: 28.8 MV E/A: 1.3 Ao V2 max: 173.6 cm/sec LV V1 max: 131.1 cm/sec MV dec slope: 529.0 cm/sec2 Ao max P.1 mmHg LV V1 max P.9 mmHg Ao V2 mean: 113.0 cm/sec LV V1 mean P.6 mmHg Ao mean P.9 mmHg LV V1 mean: 88.8 cm/sec Ao V2 VTI: 40.6 cm LV V1 VTI: 31.7 cm AV (velocity ratio): 0.78 PA V2 max: 140.5 cm/sec TR max ryan: 319.6 cm/sec PA V2 mean: 95.8 cm/sec TR max P.9 mmHg ECHO/Echo Complete Interpretation Summary Normal LV size. Left ventricular systolic function is normal. The estimated ejection fraction is 60 %. Stage 2 diastolic dysfunction. Pulmonary artery systolic pressure is 44 mmHg. Ordering Physician: Linda López Referring Physician: Samson Loco Chi Performed By: Ciara Benitez, TRAVIS, RVT
--- NOTE | 2023-10-27 12:51 | STRESSREP ---
Stress Test Report Pharmacologic myocardial perfusion stress test. 73-year-old man with a history of coronary artery disease Resting EKG demonstrates sinus rhythm with a rate of 70 bpm. Right bundle branch block present. Resting blood pressure is 178/82 mmHg. 0.4 mg of regadenoson was infused per usual protocol followed by rapid intravenous saline flush injection. Continuous EKG monitoring was performed. The maximum heart rate was 71 bpm which was 47% of max impacted heart rate the maximum workload was 1 metabolic equivalent. At rest there were no ST or T wave changes noted to suggest ischemia and at peak infusion nonspecific ST changes were noted which did not meet the criteria for ischemia. No clinical angina is noted. The final blood pressure was 170/82 mmHg. Myocardial perfusion protocol. 15 point mCi of technetium 99m sestamibi was injected at rest. 0.4 mg of regadenoson was infused per usual protocol. At peak infusion 45 mCi of technetium 99m sestamibi was injected stress images were obtained stress and rest images were reconstructed and compared in the short axis vertical long and horizontal long axis. Gated images were also obtained. Perfusion SPECT analysis: Review of the stress images demonstrate normal uptake of tracer noted in all areas of the myocardium. The resting images similar demonstrated normal uptake of tracer noted in all areas of the myocardium. No areas of reversibility are noted to suggest ischemia and no previous infarct is noted. Gated SPECT analysis: The gated ejection fraction is 56%. Conclusion: Normal pharmacologic myocardial perfusion stress test. Preserved ejection fraction.
== END | disposition home or self-care (01) ==
LOC: CVS 06:44
PROVIDERS: PCP Family Medicine Geriatric Medicine; Referring Provider Nurse Practitioner Gerontology; Visit Provider Nurse Practitioner Gerontology
DX: I25.10 Atherosclerotic heart disease of native coronary artery without angina pectoris (principal); I48.0 Paroxysmal atrial fibrillation; R06.09 Other forms of dyspnea
CPT/HCPCS: 78452; 93017; 93306; A9500; J2785

== ENCOUNTER → 2023-10-28 | Outpatient (CLI) | payer MEDICARE, SELFPAY ==
[2018-11-11 14:55] VITALS: BMI 22.2
[2023-10-28 10:29] LABS: Absolute Lymphocyte Count 2.28 X10^3/uL (0.83-4.51); Absolute Neutrophil Count 4.4 X10^3/uL (2.0-7.7); Basophil# 0.05 X10^3/uL; Basophil% 0.7 % (0-1); Eosinophils% 1.3 % (0-5); Hematocrit 40.5 % (40-54); Lymphocyte # 2.28 X10^3/ul (0.83-4.51); Lymphocyte % 30.8 % (19-41); Mean Corp Hgb Conc 32.1 g/dL (32-36); Mean Corpuscular Hgb 28.2 pg (27.0-32.0); Mean Corpuscular Volume 87.9 fL (80-94); Mean Platelet Vol. 10.2 fl (6.2-12.0); Monocyte# 0.51 X10^3/uL; Monocyte% 6.9 % (0-10); NRBC Flagged by Analyzer 0 % (0-5); Neutrophil # 4.42 X10^3/uL (2.7-7.7); Neutrophil % 59.6 % (47-70); Platelet Count 210 K/mm3 (150-450); RBC Distribution Width CV 15.9 % (11.6-14.6); Red Blood Count 4.61 M/mm3 (4.6-6.2); White Blood Count 7.4 K/mm3 (4.4-11.0)
[2023-10-28 11:07] LABS: Vitamin D,25 Hydroxy 14.6 ng/mL
[2023-10-28 11:17] LABS: ALB/GLOB Ratio 0.8 RATIO (0.9-2.4); AST(SGOT) 26 U/L (15-37); Alanine Aminotransfer ALT/SGPT 26 U/L (16-61); Albumin, Serum 3.3 g/dL (3.2-5.0); Alkaline Phosphatase 87 U/L (45-117); Anion Gap 5 (5-15); BUN 15 mg/dL (7-18); BUN/Creat Ratio 10.9 RATIO (10-20); Chloride 110 mmol/L (98-107); Cholesterol 90 mg/dL (200); Creatinine, Serum 1.38 mg/dL (0.70-1.30); EST Glomerular Filtration Rate 54 mL/min (>60); Est Glom Filt Rate - Afr Amer 65 mL/min (>60); Globulin 4.2 g/dL (2.2-4.2); Glucose 94 mg/dL (74-106); High Density Lipoprotein 28 mg/dL; Potassium 4.1 mmol/L (3.5-5.1); Protein, Total 7.5 g/dL (6.4-8.2); Sodium Level 141 mmol/L (136-145); Thyroid Stim Hormone (TSH) 1.59 uIU/mL (0.358-3.74); Triglycerides 190 mg/dL; Very Low Density Lipoprotein 38 mg/dL (5-40)
== END | disposition home or self-care (01) ==
LOC: POLAB3 09:36
PROVIDERS: PCP Family Medicine Geriatric Medicine; Visit Provider Family Medicine Geriatric Medicine
DX: I10 Essential (primary) hypertension (principal); E55.9 Vitamin D deficiency, unspecified; E78.5 Hyperlipidemia, unspecified
CPT/HCPCS: 36415; 80053; 80061; 82306; 84443; 85025

== ENCOUNTER → 2023-11-09 | Outpatient (CLI) | payer MEDICARE, SELFPAY ==
[2018-11-11 14:55] VITALS: BMI 22.2
--- NOTE | 2023-11-09 14:08 | CT_ITS ---
HISTORY: HX TOBACCO USE. TECHNIQUE: Helically acquired images were obtained of the chest without contrast. A radiation dose optimization technique was used for this scan. 944 images. COMPARISON: XR 10/03/2021, CTA 09/17/2021, CT 10/04/2018. FINDINGS: LARGE AIRWAYS: Grossly patent. LUNGS: Moderate centrilobular emphysema. Mild peripheral reticular scarring in the lower lobes with resolution of the groundglass and alveolar opacities on prior CTA. Calcified granulomas in the left upper, right middle, and right lower lobes. Stable 2 mm noncalcified left upper lobe nodule on image 113/253. Stable noncalcified 5 mm left lower lobe nodules on images 127 and 189 of series 2. Previously described right lower lobe pulmonary nodule image 2019 no longer visualized. PLEURA: No pneumothorax or significant pleural effusion. HEART/PERICARDIUM: Heart within normal limits in size with coronary artery calcification. No pericardial effusion. VESSELS: Thoracic aorta nondilated. Mild atherosclerosis. MEDIASTINUM/DAWSON: No pathologically enlarged adenopathy. BONES: Degenerative change. CT/Low Dose CT Lung Screening IMPRESSION: Pulmonary emphysema with no significant interval change in size of pulmonary nodules measuring up to 5 mm. Lung-RADS category 2: Continue annual screening with low dose CT. Electronically Signed: Maddison Hackett MD at 12:12 EDT ,
== END | disposition home or self-care (01) ==
LOC: CT 14:07
PROVIDERS: PCP Family Medicine Geriatric Medicine; Referring Provider Family Medicine Geriatric Medicine; Visit Provider Family Medicine Geriatric Medicine
DX: Z87.891 Personal history of nicotine dependence (principal)
CPT/HCPCS: 71271

== ENCOUNTER → 2024-04-24 | Outpatient (CLI) | payer MEDICARE, SELFPAY ==
[2018-11-11 14:55] VITALS: BMI 22.2
--- NOTE | 2024-04-24 08:45 | CDU_ITS ---
Reason For Study: Carotid artery disease Rt. Velocities/BP Lt. Velocities/BP Prox CCA 73/11.6 cm/sec. Prox CCA 90.5/14.6 cm/sec. Mid CCA 112.4/20.1 cm/sec. Mid CCA 105.8/12.4 cm/sec. Dist CCA 137.5/17 cm/sec. Dist CCA 86.1/15.7 cm/sec. Prox ICA 130.2/17 cm/sec. Prox ICA 71.8/14.6 cm/sec. Mid ICA 104.7/17 cm/sec. Mid ICA 101.1/20 cm/sec. Dist ICA 106.5/20.6 cm/sec. Dist ICA 79/18.8 cm/sec. Rt. ICA/CCA = 1.16. Lt. ICA/CCA = 0.96. Prox ECA 119.3/7.9 cm/sec. Prox ECA 85/6.9 cm/sec. Rt. Vert. 32.5/3.8 cm/sec. Lt. Vert. 64.2/13.9 cm/sec. Right Extracranial There is heterogeneous, irregular atherosclerotic plaque noted in the right common carotid artery. There is heterogeneous, irregular atherosclerotic plaque noted in the right internal carotid artery. There is intimal thickening but no significant atherosclerotic plaque noted in the right external carotid artery. Antegrade flow is noted in the right vertebral artery. Left Extracranial There is heterogeneous, irregular atherosclerotic plaque noted in the left common carotid artery. There is heterogeneous, irregular atherosclerotic plaque noted in the left internal carotid artery. There is intimal thickening but no significant atherosclerotic plaque noted in the left external carotid artery. Procedure Carotid Duplex 17512. This is a Carotid Duplex examination using B-mode, color flow and specral Doppler. Exam performed in department. VL/Carotid Duplex Ultrasound Interpretation Summary Moderate (50-69%) stenosis right extracranial internal carotid. Mild (<50%) stenosis left extracranial internal carotid. Patent and antegrade vertebrals bilaterally. Ordering Physician: Linda López Referring Physician: Samson Loco Chi Performed By: Rayne Eldridge RVT
== END | disposition home or self-care (01) ==
LOC: CVS 08:43
PROVIDERS: PCP Family Medicine Geriatric Medicine; Referring Provider Nurse Practitioner Gerontology; Visit Provider Nurse Practitioner Gerontology
DX: I65.23 Occlusion and stenosis of bilateral carotid arteries (principal)
CPT/HCPCS: 93880

== ENCOUNTER → 2024-05-04 | Outpatient (CLI) | payer MEDICARE, SELFPAY ==
[2018-11-11 14:55] VITALS: BMI 22.2
[2024-05-04 09:30] LABS: Absolute Lymphocyte Count 2.76 X10^3/uL (0.83-4.51); Absolute Neutrophil Count 5.2 X10^3/uL (2.0-7.7); Basophil# 0.05 X10^3/uL; Basophil% 0.6 % (0-1); Eosinophil# 0.13 X10^3/uL; Eosinophils% 1.5 % (0-5); Hematocrit 37.6 % (40-54); Hemoglobin 12.1 g/dL (13.0-16.5); Lymphocyte # 2.76 X10^3/ul (0.83-4.51); Lymphocyte % 31.1 % (19-41); Mean Corp Hgb Conc 32.2 g/dL (32-36); Mean Corpuscular Hgb 30.8 pg (27.0-32.0); Mean Corpuscular Volume 95.7 fL (80-94); Mean Platelet Vol. 9.8 fl (6.2-12.0); Monocyte# 0.67 X10^3/uL; Monocyte% 7.5 % (0-10); NRBC Flagged by Analyzer 0 % (0-5); Neutrophil % 58.5 % (47-70); Platelet Count 206 K/mm3 (150-450); RBC Distribution Width SD 59.9 fl (35.1-43.9); Red Blood Count 3.93 M/mm3 (4.6-6.2); White Blood Count 8.9 K/mm3 (4.4-11.0)
[2024-05-04 10:08] LABS: Vitamin D,25 Hydroxy 34.1 ng/mL
[2024-05-04 10:14] LABS: ALB/GLOB Ratio 0.9 RATIO (0.9-2.4); AST(SGOT) 24 U/L (15-37); Alanine Aminotransfer ALT/SGPT 23 U/L (16-61); Albumin, Serum 3.5 g/dL (3.2-5.0); Alkaline Phosphatase 90 U/L (45-117); Anion Gap 5 (5-15); BUN 18 mg/dL (7-18); BUN/Creat Ratio 13.3 RATIO (10-20); Calcium,Total 8.3 mg/dL (8.5-10.1); Chloride 111 mmol/L (98-107); Cholesterol 111 mg/dL (200); Creatinine, Serum 1.35 mg/dL (0.70-1.30); EST Glomerular Filtration Rate 55 mL/min (>60); Est Glom Filt Rate - Afr Amer 67 mL/min (>60); Glucose 92 mg/dL (74-106); High Density Lipoprotein 31 mg/dL; Potassium 3.8 mmol/L (3.5-5.1); Protein, Total 7.5 g/dL (6.4-8.2); Sodium Level 142 mmol/L (136-145); Triglycerides 192 mg/dL; Very Low Density Lipoprotein 38 mg/dL (5-40)
== END | disposition home or self-care (01) ==
PROVIDERS: PCP Family Medicine Geriatric Medicine; Visit Provider Family Medicine Geriatric Medicine
DX: I10 Essential (primary) hypertension (principal); E78.5 Hyperlipidemia, unspecified; E55.9 Vitamin D deficiency, unspecified
CPT/HCPCS: 36415; 80053; 80061; 82306; 84443; 85025

== ENCOUNTER → 2024-10-24 | Outpatient (CLI) | payer MEDICARE, SELFPAY ==
[2018-11-11 14:55] VITALS: BMI 22.2
[2024-10-24 16:06] LABS: PSA,Total- Diagnostic < 0.02 ng/mL (0.00-4.00)
== END | disposition home or self-care (01) ==
LOC: MTLAB 12:39
PROVIDERS: PCP Family Medicine Geriatric Medicine; Referring Provider Urology; Visit Provider Urology
DX: C61 Malignant neoplasm of prostate (principal)
CPT/HCPCS: 36415; 84153

== ENCOUNTER → 2024-11-02 | Outpatient (CLI) | payer MEDICARE, SELFPAY ==
[2018-11-11 14:55] VITALS: BMI 22.2
[2024-11-02 10:25] LABS: Absolute Lymphocyte Count 2.48 X10^3/uL (0.83-4.51); Absolute Neutrophil Count 6.7 X10^3/uL (2.0-7.7); Basophil# 0.04 X10^3/uL; Basophil% 0.4 % (0-1); Eosinophil# 0.09 X10^3/uL; Eosinophils% 0.9 % (0-5); Hematocrit 37.2 % (40-54); Hemoglobin 12.2 g/dL (13.0-16.5); Lymphocyte # 2.48 X10^3/ul (0.83-4.51); Lymphocyte % 24.8 % (19-41); Mean Corp Hgb Conc 32.8 g/dL (32-36); Mean Corpuscular Hgb 30.7 pg (27.0-32.0); Mean Corpuscular Volume 93.5 fL (80-94); Mean Platelet Vol. 9.8 fl (6.2-12.0); Monocyte# 0.63 X10^3/uL; Monocyte% 6.3 % (0-10); NRBC Flagged by Analyzer 0 % (0-5); Neutrophil # 6.66 X10^3/uL (2.7-7.7); Neutrophil % 66.8 % (47-70); Platelet Count 278 K/mm3 (150-450); RBC Distribution Width CV 14.9 % (11.6-14.6); RBC Distribution Width SD 51.4 fl (35.1-43.9); Red Blood Count 3.98 M/mm3 (4.6-6.2)
[2024-11-02 19:55] LABS: ALB/GLOB Ratio 1.1 RATIO (0.9-2.4); AST(SGOT) 26 U/L (<=37); Alanine Aminotransfer ALT/SGPT 25 U/L (<=46); Albumin, Serum 3.7 g/dL (3.4-4.8); Alkaline Phosphatase 71 U/L (40-129); Anion Gap 13 (5-15); BUN 18 mg/dL (4-19); BUN/Creat Ratio 12.7 RATIO (10-20); Calcium,Total 8.3 mg/dL (7.6-11.0); Carbon Dioxide 20.9 mmol/L (21.0-32.0); Chloride 109 mmol/L (98-108); Creatinine, Serum 1.42 mg/dL (0.70-1.20); EST Glomerular Filtration Rate 53 (>60); Globulin 3.4 g/dL (2.2-4.2); Glucose 90 mg/dL (70-99); Potassium 4.1 mmol/L (3.3-5.1); Protein, Total 7.1 g/dL (5.9-8.4); Sodium Level 143 mmol/L (133-145); Total Bilirubin 0.31 mg/dL (0.00-1.30)
[2024-11-02 20:31] LABS: Cholesterol 78 mg/dL (<=200); High Density Lipoprotein 22 mg/dL; Low Density Lipoprotein Calc. 22 mg/dL; Triglycerides 172 mg/dL; Very Low Density Lipoprotein 34 mg/dL (5-40)
[2024-11-02 20:35] LABS: Vitamin D,25 Hydroxy 12.8 ng/mL (30-100)
== END | disposition home or self-care (01) ==
LOC: POLAB3 10:13
PROVIDERS: PCP Family Medicine Geriatric Medicine; Visit Provider Family Medicine Geriatric Medicine
DX: I10 Essential (primary) hypertension (principal); E78.5 Hyperlipidemia, unspecified; E55.9 Vitamin D deficiency, unspecified
CPT/HCPCS: 36415; 80053; 80061; 82306; 84443; 85025

== ENCOUNTER → 2025-05-02 | Outpatient (CLI) | payer MEDICARE, SELFPAY ==
[2018-11-11 14:55] VITALS: BMI 22.2
[2025-05-02 09:43] LABS: Hematocrit 36.8 % (40-54); Hemoglobin 12.1 g/dL (13.0-16.5); Immature Granulocytes Count 0.070 X10^3/uL (0.0-0.0); Mean Corp Hgb Conc 32.9 g/dL (32-36); Mean Corpuscular Volume 86.8 fL (80-94); Mean Platelet Vol. 10.3 fl (6.2-12.0); NRBC Flagged by Analyzer 0 % (0-5); Platelet Count 194 K/mm3 (150-450); RBC Distribution Width CV 15.4 % (11.6-14.6); RBC Distribution Width SD 48.8 fl (35.1-43.9); Red Blood Count 4.24 M/mm3 (4.6-6.2); White Blood Count 8.5 K/mm3 (4.4-11.0)
[2025-05-02 10:26] LABS: Vitamin D,25 Hydroxy 30.0 ng/mL (30-100)
[2025-05-02 10:28] LABS: AST(SGOT) 25 U/L (<=37); Alanine Aminotransfer ALT/SGPT 20 U/L (<=46); Albumin, Serum 4.3 g/dL (3.4-4.8); Alkaline Phosphatase 80 U/L (40-129); Anion Gap 12 (5-15); BUN 22 mg/dL (4-19); BUN/Creat Ratio 14.7 RATIO (10-20); Calcium,Total 8.6 mg/dL (7.6-11.0); Carbon Dioxide 21.7 mmol/L (21.0-32.0); Chloride 106 mmol/L (98-108); Globulin 3.1 g/dL (2.2-4.2); Glucose 100 mg/dL (70-99); Potassium 4.7 mmol/L (3.3-5.1)
[2025-05-02 17:31] LABS: Xtra Tube Kwok EXTRA TUBE
== END | disposition home or self-care (01) ==
LOC: POLAB3 09:16
PROVIDERS: PCP Family Medicine Geriatric Medicine; Visit Provider Family Medicine Geriatric Medicine
DX: I10 Essential (primary) hypertension (principal); E03.9 Hypothyroidism, unspecified; E55.9 Vitamin D deficiency, unspecified
CPT/HCPCS: 36415; 80053; 82306; 84443; 85025

== ENCOUNTER → 2025-07-31 | Outpatient (CLI) | payer MEDICARE, SELFPAY ==
[2018-11-11 14:55] VITALS: BMI 22.2
--- NOTE | 2025-07-31 13:48 | CDU_ITS ---
Reason For Study Reason For Study: DIZZINESS Rt. Velocities/BP Lt. Velocities/BP Prox CCA 111.3/10.6 cm/sec. Prox CCA 155.3/25.7 cm/sec. Mid CCA 242.6/22.3 cm/sec. Mid CCA 191.5/28.3 cm/sec. Dist CCA 219.3/19.7 cm/sec. Dist CCA 135.9/21.7 cm/sec. Prox ICA 207.1/15.3 cm/sec. Prox ICA 153.4/39.3 cm/sec. Mid ICA 152.7/17.9 cm/sec. Mid ICA 164.4/32.7 cm/sec. Dist ICA 121.6/20.5 cm/sec. Dist ICA 162.2/41.5 cm/sec. Rt. ICA/CCA = 201.1/242.6=0.9. Lt. ICA/CCA = 164.4/191.5=0.9. Prox ECA 160.0/13.0 cm/sec. Prox ECA 157.8/17.3 cm/sec. Rt. Vert. 36.2/7.6 cm/sec. Lt. Vert. 89.8/17.3 cm/sec. Right Extracranial There is heterogeneous, irregular atherosclerotic plaque noted in the right common carotid artery. There is heterogeneous, irregular atherosclerotic plaque noted in the right internal carotid artery. There is heterogeneous, irregular atherosclerotic plaque noted in the right external carotid artery. Antegrade flow is noted in the right vertebral artery. Left Extracranial There is heterogeneous, irregular atherosclerotic plaque noted in the left common carotid artery. There is heterogeneous, irregular atherosclerotic plaque noted in the left internal carotid artery. There is heterogeneous, irregular atherosclerotic plaque noted in the left external carotid artery. Antegrade flow is noted in the left vertebral artery. Procedure Carotid Duplex 55567. This is a Carotid Duplex examination using B-mode, color flow and specral Doppler. The study was technically difficult. Exam performed in department. VL/Carotid Duplex Ultrasound Interpretation Summary Moderate (50-69%) stenosis right extracranial internal carotid. Mid common britt tid artery with elevated velocities. Moderate (50-69%) stenosis left extracranial internal carotid. Patent and antegrade vertebrals bilaterally. Ordering Physician: Linda López Referring Physician: Samson Loco Chi Performed By: Leigh So, TRAVIS, RVT
== END | disposition home or self-care (01) ==
LOC: CVS 13:45
PROVIDERS: PCP Family Medicine Geriatric Medicine; Referring Provider Nurse Practitioner Gerontology; Visit Provider Nurse Practitioner Gerontology
DX: R42 Dizziness and giddiness (principal)
CPT/HCPCS: 93880